=== PATIENT | female | born 1960 | race African-American/Black ===

== ENCOUNTER 2020-03-04 09:24 | Outpatient (REF) | payer OTHER, SELFPAY | END 2020-03-04 09:25 | disposition home or self-care (01) | LOC: HO.US 09:24 | PROVIDERS: PCP Internal Medicine; Visit Provider Internal Medicine | DX: Z76.89 Persons encountering health services in other specified circumstances (principal) ==

== ENCOUNTER → 2020-04-26 11:05 | Outpatient (BNVA) | payer OTHER, SELFPAY | PROVIDERS: PCP Internal Medicine; Referring Provider Internal Medicine; Visit Provider Internal Medicine | DX: Z76.89 Persons encountering health services in other specified circumstances (principal) ==

== ENCOUNTER 2020-05-25 09:09 | Outpatient (REF) | payer OTHER, SELFPAY ==
[2020-05-25 11:52] LABS: Alanine Aminotransferase 12 U/L (0-31); Anion Gap 10 (12-20); Aspartate Amino Transferase 12 U/L (5-31); Blood Urea Nitrogen 12 mg/dL (9-16); Calcium 10.1 mg/dL (8.4-10.2); Carbon Dioxide 27 mmol/L (22-29); Chloride 106 mmol/L (96-108); Cholesterol 123 mg/dL; Estimated Glomerular Filt Rate > 60; Glucose Fasting 112 mg/dL (60-99); HDL Cholesterol 48 mg/dL; LDL Cholesterol Calculated 62 mg/dl; Potassium 4.2 mmol/l (3.3-5.1); Sodium 139 mmol/L (135-145); Triglycerides 66 mg/dL
== END 2020-05-25 09:10 | disposition home or self-care (01) ==
LOC: HO.HMGCLDS 09:09
PROVIDERS: PCP Internal Medicine; Visit Provider Internal Medicine
DX: I10 Essential (primary) hypertension (principal); E11.9 Type 2 diabetes mellitus without complications
CPT/HCPCS: 80048; 80061; 84450; 84460

== ENCOUNTER → 2020-05-26 09:51 | Outpatient (BNVA) | payer OTHER, SELFPAY | PROVIDERS: PCP Internal Medicine; Visit Provider Internal Medicine | DX: I21.4 Non-ST elevation (NSTEMI) myocardial infarction (principal); I25.3 Aneurysm of heart | CPT/HCPCS: 93005; 99212 ==

== ENCOUNTER → 2020-06-03 09:16 | Outpatient (BNVA) | payer OTHER, SELFPAY | PROVIDERS: PCP Internal Medicine; Visit Provider Internal Medicine | DX: Z76.89 Persons encountering health services in other specified circumstances (principal) ==

== ENCOUNTER 2020-06-10 10:53 | Outpatient (REF) | payer OTHER, SELFPAY ==
--- NOTE | 2020-06-10 10:58 | MM_ITS ---
EXAMINATION: BONE DENSITOMETRY CLINICAL INDICATION: Disorders of bone density, hyperparathyroidism. COMPARISON: Baseline BD dated 09/19/2018 (spine and left hip). This is the patient's baseline examination for the forearm radius 33%. TECHNIQUE: Using a [employer] DXA System (software version: 13.1) manufactured by [employer], dual-energy x-ray absorptiometry was performed of the lumbar spine, left hip, and left forearm radius 33%. The images are of good technical quality. Summary results are attached. FINDINGS: AP SPINE L1-L4: Current: BMD 1.182 g/cm2, Z-score -0.6, T-score 0.0, normal, 1.9% increase from baseline (<5% change is not significant). Baseline: BMD 1.160 g/cm2. LEFT FEMUR, NECK: Current: BMD 0.889 g/cm2, Z-score -1.5, T-score -1.1, osteopenia. Baseline: BMD 0.870 g/cm2. LEFT FEMUR, TOTAL: Current: BMD 1.056 g/cm2, Z-score -0.4, T-score 0.4, normal, 4.6% increase from baseline (<5% change is not significant). Baseline: BMD 1.010 g/cm2. LEFT FOREARM RADIUS 33%: BMD 0.851 g/cm2, Z-score 0.0, T-score -0.3, normal. IDENTIFIED RISK FACTORS: Hyperparathyroidism, secondary osteoporosis, early menopause, right oophorectomy. HISTORY OF FRACTURE: None listed. MEDICATIONS: Vitamin D. MM/XR DEXA appendicular skeleton IMPRESSION: 1. DIAGNOSIS: Osteopenia based on the lowest T-score value of -1.1 in the femoral neck applying World Health Organization criteria. 2. 10-YEAR FRACTURE RISK PREDICTION, FRAX: Major osteoporotic fracture (clinical spine, forearm, hip or shoulder) 2.9%. Hip fracture 0.2%. 3. Treatment Recommendations: NOF guidelines recommend consideration for treatment in postmenopausal women and men age 50 and older presenting with the following: -A hip or vertebral (clinical or morphometric) fracture. -T-score less than or equal to -2.5 at the femoral neck or spine after appropriate evaluation to exclude secondary causes. -Low bone mass at the hip or spine and a 10-year fracture probability by FRAX of greater than or equal to 3% for hip fracture or greater than or equal to 20% for major osteoporotic fracture based on the [place] adapted WHO algorithm. 4. Other Recommendations: All treatment decisions require clinical judgment and consideration of individual patient factors, including patient preferences, comorbidities, previous drug use, risk factors not captured in the FRAX model (e.g. frailty, falls, vitamin D deficiency, increased bone turnover, interval significant decline in bone density) and possible under or overestimation of fracture risk by FRAX. Additional medical evaluation for secondary cause of low bone mineral density may be appropriate. FUTURE SCAN RECOMMENDATION: People with diagnosed cases of osteoporosis or at high risk for fracture should have regular bone mineral density tests. For patients eligible for Medicare, routine testing is allowed once every 2 years. The testing frequency can be increased to one year for patients who have rapidly progressing disease, those who are receiving or discontinuing medical therapy to restore bone mass, or have additional risk factors.
== END 2020-06-10 10:54 | disposition home or self-care (01) ==
LOC: HO.MAMMO 10:53
PROVIDERS: Visit Provider Internal Medicine
DX: Z13.820 Encounter for screening for osteoporosis (principal); M85.88 Other specified disorders of bone density and structure, other site
CPT/HCPCS: 77081

== ENCOUNTER → 2020-07-07 08:53 | Outpatient (BNVA) | payer OTHER, SELFPAY | PROVIDERS: PCP Internal Medicine; Visit Provider Internal Medicine ==

== ENCOUNTER 2020-07-08 13:10 | Outpatient (REF) | payer OTHER, SELFPAY ==
[2020-07-08 14:33] LABS: Albumin Level 4.1 g/dL (3.5-5.0); Phosphorus 3.3 mg/dL (2.7-4.5)
[2020-07-08 14:59] LABS: Free T4 (Free Thyroxine) 1.04 ng/dL (0.71-1.85); Thyroid Stimulating Hormone 3.11 uIU/mL (0.32-4.0)
[2020-07-09 13:13] LABS: Calcium (PTHI) 10.4 mg/dL (8.6-10.4); PTHI 77 pg/mL (14-64)
== END 2020-07-08 13:11 | disposition home or self-care (01) ==
LOC: HO.LAB 13:10
PROVIDERS: PCP Internal Medicine; Visit Provider Internal Medicine
DX: E21.3 Hyperparathyroidism, unspecified (principal); E06.3 Autoimmune thyroiditis; E04.2 Nontoxic multinodular goiter; E55.9 Vitamin D deficiency, unspecified
CPT/HCPCS: 36415; 82040; 82306; 82310; 83970; 84100; 84439; 84443

== ENCOUNTER → 2020-08-04 10:06 | Outpatient (BNVA) | payer OTHER, SELFPAY | PROVIDERS: PCP Internal Medicine; Visit Provider Internal Medicine ==

== ENCOUNTER 2020-08-12 06:17 | Day surgery (SDC) | payer OTHER, SELFPAY ==
[2020-08-06 15:52] VITALS: BMI 37.5
--- NOTE | 2020-08-11 09:09 | HO.ANESPROP2 ---
Documented by User: Kristy Brandt 08/11/20 09:17 HPI - Anesthesia Eval Consult details Narrative: 60yo F for Colonoscopy PMFSH Active Problems Active Problems: All Active Problems (Updated 08/06/20 @ 15:52 by Allyson Hernadez) Somatic dysfunction of right sacroiliac joint (Acute) Colon cancer screening (Acute) NSTEMI (non-ST elevated myocardial infarction) (Acute) History of acute myocardial infarction (Acute) Diabetic retinopathy screening (Acute) Essential hypertension (Acute) Osteopenia of left femoral neck (Acute) Type 2 diabetes mellitus without complication, with no history of insulin use (Acute) Atrial septal aneurysm (Acute) Osteopenia (Acute) Vitamin D deficiency (Acute) Multinodular thyroid (Acute) Jaki's disease (Acute) Hyperparathyroidism (Acute) Past Medical History Medical History Atrial septal aneurysm Diabetic retinopathy screening Elevated cholesterol Essential hypertension Jaki's disease History of acute myocardial infarction HTN (hypertension) Hyperparathyroidism Multinodular thyroid NSTEMI (non-ST elevated myocardial infarction) Osteopenia Osteopenia of left femoral neck Type 2 diabetes mellitus without complication, with no history of insulin use Vitamin D deficiency Family History Family History Mother Diabetes Arthritis Breast cancer Father No problems noted. Surgical History Surgical History History of cardiac catheterization (~05/2020) History of partial hysterectomy Hx of colonoscopy Hx of tubal ligation Social History Social History Alcohol intake: current Alcohol intake frequency: holidays/special occasions only Alcohol type: wine Smoking Status: Former smoker Use of substances other than those prescribed or required for medical reasons: No Have you been hit, kicked, punched, or otherwise hurt by someone within the past year? If so, by whom?: No Advance Directives: No Advance Directives Information Provided: No Advance Directives on File: No Meds Allergies Allergy/AdvReac Type Severity Reaction Status Date / Time Lactose Allergy Intermediate stomach Uncoded 08/12/20 06:44 upset Home Medications Medication Instructions Recorded Confirmed Last Taken Type aspirin 81 mg tablet,delayed 81 mg PO DAILY 03/22/20 08/06/20 Unknown History release atorvastatin 20 mg tablet 20 mg PO DAILY 03/22/20 08/06/20 Unknown History cholecalciferol (vitamin D3) 50 50 mcg PO BEDTIME 03/22/20 08/06/20 Unknown History mcg (2,000 unit) capsule metoprolol succinate 100 mg 100 mg PO DAILY 03/22/20 08/12/20 08/12/20 History tablet,extended release 24 hr 100 mg metformin 500 mg tablet 500 mg PO DAILY tab 05/26/20 08/06/20 Unknown History blood sugar diagnostic #10 ea 06/03/20 08/04/20 Unknown History lancets 28 gauge #100 ea 06/03/20 08/04/20 Unknown History Exam Exam Date and Time: August 11, 2020 0909 Height,Weight and Vital Signs: Height 5 ft 4 in Weight 99.337 kg Pertinent Lab Results Pertinent Lab Results: Laboratory Tests 05/25/20 09:16 Sodium 139 Potassium 4.2 Chloride 106 Carbon Dioxide 27 BUN 12 Creatinine 0.88 Narrative Narrative: Per cardiology OV 05/2020 post [facility] D/C with NSTEMI Recent cardiac catheterization showed normal coronary arteries. She could have had microvascular disease related to diabetes. Echocardiogram then with hyperdynamic systolic function, but without any wall motion abnormalities. Assessment and Plan Assessment Anesthesia Assessment: Chart Reviewed Documented by User: Jenaro Fisher 08/12/20 07:36 [facility] Past Medical History Medical History Atrial septal aneurysm Diabetic retinopathy screening Elevated cholesterol Essential hypertension Jaki's disease History of acute myocardial infarction HTN (hypertension) Hyperparathyroidism Multinodular thyroid NSTEMI (non-ST elevated myocardial infarction) Osteopenia Osteopenia of left femoral neck Type 2 diabetes mellitus without complication, with no history of insulin use Vitamin D deficiency Family History Family History Mother Diabetes Arthritis Breast cancer Father No problems noted. Surgical History Surgical History History of cardiac catheterization (~05/2020) History of partial hysterectomy Hx of colonoscopy Hx of tubal ligation Social History Social History Alcohol intake: current Alcohol intake frequency: holidays/special occasions only Alcohol type: wine Smoking Status: Former smoker Use of substances other than those prescribed or required for medical reasons: No Have you been hit, kicked, punched, or otherwise hurt by someone within the past year? If so, by whom?: No Advance Directives: No Advance Directives Information Provided: No Advance Directives on File: No Meds Allergies Allergy/AdvReac Type Severity Reaction Status Date / Time Lactose Allergy Intermediate stomach Uncoded 08/12/20 06:44 upset Home Medications Medication Instructions Recorded Confirmed Last Taken Type aspirin 81 mg tablet,delayed 81 mg PO DAILY 03/22/20 08/06/20 Unknown History release atorvastatin 20 mg tablet 20 mg PO DAILY 03/22/20 08/06/20 Unknown History cholecalciferol (vitamin D3) 50 50 mcg PO BEDTIME 03/22/20 08/06/20 Unknown History mcg (2,000 unit) capsule metoprolol succinate 100 mg 100 mg PO DAILY 03/22/20 08/12/20 08/12/20 History tablet,extended release 24 hr 100 mg metformin 500 mg tablet 500 mg PO DAILY tab 05/26/20 08/06/20 Unknown History blood sugar diagnostic #10 ea 06/03/20 08/04/20 Unknown History lancets 28 gauge #100 ea 06/03/20 08/04/20 Unknown History Exam Airway Mallampati Class: II TM Dist: >3cm Neck ROM: Full Heart: [id number] Lungs: cta b/l Assessment and Plan Assessment Anesthesia Assessment: Anesthesia Plan Discussed, PAT Visit and Chart Reviewed Final Anesthetic Review NPO: Yes ASA Class: III Final Preanesthetic Review: No Changes in Pt Med Stat, Meds/Allgs Chart Reviewed, Consent Obtained/Reviewed and Anes Risks/Benef Reviewed Patient Risk: Intermediate Procedure Risk: Low Assessment/Block/Sedation in SS: Assess/Block/Sedation-SS Anesthetic Plan Anesthetic Plan: MAC: and Agree w/ Assess. and Plan Disposition: Standard PACU
[2020-08-12 06:34] VITALS: BP 107/70; PULSE 73; RESP 18; TEMP 36; O2SAT 95
[2020-08-12 06:35] LABS: Glucose, Whole Blood 102 mg/dL (60-115)
[2020-08-12] MEDS: Lactated Ringers 1,000 ML 50 ML IV (07:16)
--- NOTE | 2020-08-12 07:25 | P.HPSUR_ITS ---
Pre-Procedural Eval Section B Chief Complaint: screening Details of Present Illness: Colon cancer screening--non high risk no clinical changes sine June preprocedure visit Relevant Family History (Specify if Yes): No Relevant Social History: None Present Medications: see Short Stay Collaborative assessment Medical History: Significant History (Hypertension, Diabetes) History of Previous Operations: Relevant previous surgery/procedure and date(s) (Partial hysterectomy) Allergies: Allergies Allergy/AdvReac Type Severity Reaction Status Date / Time Lactose Allergy Intermediate stomach Uncoded 08/12/20 06:44 upset Review of Systems Sugical H&P ROS: Negative: Constitution, Respiratory and Gastrointestinal and Yes, Specify: Cardiovascular (hypertension) and Endocrine (thyroid,parathyroid, AODM-2) Exam Surgical H&P Exam: Normal: HEENT, Normal: Heart, Normal: Lungs, Normal: Ext remities and Normal: Abdomen Plan Diagnosis/Plan: Unchanged I have reviewed the history and physical and performed a pertinent physical examination on my patient. No changes have occurred unless specified.yes
--- NOTE | 2020-08-12 08:16 | P.BOP_ITS ---
Brief Operative Note Date of Service: 08/12/20 Pre-op diagnosis: COLON CANCER SCREENING Post-op diagnosis: other (MINOR DIVERTICULOSIS) Procedure: COLONOSCOPY Implants: NONE Surgeon: Lulu Childress MD Anesthesia: MAC (DEVAN,LEARNING DEVELOPMENT SPECIALIST;MD ELAINE) Estimated blood loss (mL): 0 Pathology: none sent Condition: stable Disposition: PACU
[2020-08-12 08:17] VITALS: BP 106/50; PULSE 61; RESP 20; TEMP 36.8; O2SAT 100
[2020-08-12 08:32] VITALS: BP 129/59; PULSE 65; RESP 17; TEMP 36.8; O2SAT 100
--- NOTE | 2020-08-12 08:34 | P.OP_ITS ---
Operative Note Operative Note Date of Service: 08/12/20 Narrative: Pre-op diagnosis: COLON CANCER SCREENING Post-op diagnosis: other (MINOR DIVERTICULOSIS) Procedure: COLONOSCOPY Implants: NONE Surgeon: Lulu Childress MD Anesthesia: MAC (DEVAN,ROLL UP MACHINE OPERATOR;MD ELAINE) BRYAN-adequate sphincter tone FINDINGS: SCOPE EASILY ADVANCED THROUGH SIGMOID, DESCENDING, TRANSVERSE COLON INTO THE CECUM. APPENDICEAL ORIFICE, VALVE WELL SEEN. I WAS ABLE TO EXAMINE VERY DISTAL ILEUM FOR ? 2CM--NORMAL VILLI PREP--GOOD, THERE WAS MILD RESIDUAL FLUID NECESSITATING SOME FLUSHING AND SUCTIONING WE COURSED THRU THE COLON. SLOW WITHDRAWAL, GOOD ROTATIONAL VIEWS, NO MUCOSAL LESIONS SEEN. ON WAY IN OCC DIVERTICULUM HAD BEEN SEEN. ARV--CLEAR. Estimated blood loss (mL): 0 Pathology: none sent Condition: stable Disposition: PACU PLAN: PATIENT WILL REMAIN ON A 10YR ASYMPTOMATIC SCREENING SCHEDULE.
== END 2020-08-12 09:08 | disposition home or self-care (01) ==
PROVIDERS: PCP Internal Medicine; Visit Provider Internal Medicine Gastroenterology
PROC: 0DJD8ZZ Inspection of Lower Intestinal Tract, Via Natural or Artificial Opening Endoscopic (ICD-10-PCS; CPT 45378; principal; 2020-08-12 07:30)
DX: Z12.11 Encounter for screening for malignant neoplasm of colon (principal); K57.30 Diverticulosis of large intestine without perforation or abscess without bleeding; I10 Essential (primary) hypertension; E11.9 Type 2 diabetes mellitus without complications; Z79.82 Long term (current) use of aspirin; Z79.84 Long term (current) use of oral hypoglycemic drugs; Z79.899 Other long term (current) drug therapy; Z87.891 Personal history of nicotine dependence
CPT/HCPCS: 45378; 82947

== ENCOUNTER 2020-08-31 07:49 | Outpatient (REF) | payer OTHER, SELFPAY ==
[2020-08-31 09:09] LABS: Alanine Aminotransferase 21 U/L (0-31); Albumin Level 4.2 g/dL (3.5-5.0); Alkaline Phosphatase 88 U/L (39-117); Anion Gap 12 (12-20); Aspartate Amino Transferase 16 U/L (5-31); Bilirubin Total 0.7 mg/dL (0.0-1.0); Blood Urea Nitrogen 15 mg/dL (9-16); Calcium 10.2 mg/dL (8.4-10.2); Carbon Dioxide 27 mmol/L (22-29); Chloride 105 mmol/L (96-108); Cholesterol 143 mg/dL; Estimated Glomerular Filt Rate 56; Glucose Random 131 mg/dL (60-115); HDL Cholesterol 57 mg/dL; LDL Cholesterol Calculated 73 mg/dl; Phosphorus 3.5 mg/dL (2.7-4.5); Potassium 4.3 mmol/L (3.3-5.1); Sodium 140 mmol/L (135-145); Total Protein 6.9 g/dL (6.5-8.0); Triglycerides 66 mg/dL
[2020-08-31 09:28] LABS: Free T4 (Free Thyroxine) 0.83 ng/dL (0.71-1.85)
[2020-08-31 09:34] LABS: Thyroid Stimulating Hormone 4.86 uIU/mL (0.32-4.0)
[2020-08-31 09:59] LABS: Vitamin D 25-OH Total 40.5 ng/mL (>30)
[2020-09-01 17:52] LABS: Calcium (PTHI) 10.5 mg/dL (8.6-10.4); PTHI 69 pg/mL (14-64)
== END 2020-08-31 07:50 | disposition home or self-care (01) ==
LOC: HO.LAB 07:49
PROVIDERS: Absent Provider Internal Medicine; PCP Internal Medicine; Visit Provider Internal Medicine
DX: Z09 Encounter for follow-up examination after completed treatment for conditions other than malignant neoplasm (principal); E21.3 Hyperparathyroidism, unspecified; E04.2 Nontoxic multinodular goiter; I10 Essential (primary) hypertension; E11.9 Type 2 diabetes mellitus without complications; I25.3 Aneurysm of heart; E55.9 Vitamin D deficiency, unspecified; I25.2 Old myocardial infarction
CPT/HCPCS: 36415; 80053; 80061; 82306; 83970; 84100; 84439; 84443

== ENCOUNTER 2020-11-26 11:22 | Outpatient (REF) | payer OTHER, SELFPAY ==
--- NOTE | ~2020-11-26 | MM_ITS ---
EXAMINATION: MM SCREENING DIGITAL BREAST TOMOSYNTHESIS, BILATERAL CLINICAL INFORMATION: Screening. Asymptomatic. The lifetime risk of breast cancer based on the Tyrer-Cuzick Model is 11.1%. COMPARISON: Mammography: November 25, 2019 and studies dating back to August 02, 2016 TECHNIQUE: Digital breast tomosynthesis is performed in both the craniocaudal and mediolateral oblique views along with computer-aided detection (CAD). Synthesized 2D images are generated from the tomosynthesis. FINDINGS: There are scattered areas of fibroglandular density (ACR BI-RADS breast composition Category b). There are no significant masses, abnormal calcifications, or other abnormalities. MM/MM tomosynthesis screening BI IMPRESSION: There are no significant changes from prior study. ASSESSMENT: BI-RADS 1: Negative RECOMMENDATION: Routine annual mammography screening. This patient's information was entered into a reminder system with a target due date for their next mammogram.
== END 2020-11-26 11:23 | disposition home or self-care (01) ==
LOC: HO.MAMMO 11:22
PROVIDERS: Visit Provider Internal Medicine
DX: Z12.31 Encounter for screening mammogram for malignant neoplasm of breast (principal)
CPT/HCPCS: 77063; 77067

== ENCOUNTER → 2021-02-03 09:53 | Outpatient (BNVA) | payer OTHER, SELFPAY | PROVIDERS: PCP Internal Medicine; Visit Provider Internal Medicine ==

== ENCOUNTER 2021-02-08 10:15 | Outpatient (REF) | payer OTHER, SELFPAY ==
[2021-02-08 11:17] LABS: Albumin Level 4.1 g/dL (3.5-5.0)
[2021-02-08 11:49] LABS: Free T4 (Free Thyroxine) 1.03 ng/dL (0.71-1.85); Thyroid Stimulating Hormone 3.61 uIU/mL (0.32-4.0)
[2021-02-13 06:31] LABS: Calcium (PTHI) 10.7 mg/dL (8.6-10.4); PTHI 65 pg/mL (14-64)
== END 2021-02-08 10:16 | disposition home or self-care (01) ==
LOC: HO.LAB 10:15
PROVIDERS: PCP Internal Medicine; Visit Provider Internal Medicine
DX: E21.3 Hyperparathyroidism, unspecified (principal); E06.3 Autoimmune thyroiditis
CPT/HCPCS: 36415; 82040; 83970; 84439; 84443

== ENCOUNTER 2021-04-11 08:47 | Outpatient (REF) | payer OTHER, SELFPAY ==
[2021-04-12 12:03] LABS: BV Int Neg Control Negative (Negative); BV Int Pos Control Positive (Positive)
== END 2021-04-11 08:48 | disposition home or self-care (01) ==
LOC: HO.LAB 08:47
PROVIDERS: PCP Internal Medicine; Visit Provider Advanced Practice Midwife
DX: Z01.411 Encounter for gynecological examination (general) (routine) with abnormal findings (principal); N89.8 Other specified noninflammatory disorders of vagina
CPT/HCPCS: 87480; 87510; 87660

== ENCOUNTER → 2021-05-10 10:10 | Outpatient (BNVA) | payer OTHER, SELFPAY | PROVIDERS: PCP Internal Medicine; Referring Provider Internal Medicine; Visit Provider Internal Medicine | DX: I25.2 Old myocardial infarction (principal); I25.3 Aneurysm of heart; I10 Essential (primary) hypertension; E11.8 Type 2 diabetes mellitus with unspecified complications; Z79.82 Long term (current) use of aspirin | CPT/HCPCS: 93005; 99212 ==

== ENCOUNTER 2021-06-16 18:28 | Outpatient (REF) | payer OTHER, SELFPAY | END 2021-06-16 18:29 | disposition home or self-care (01) | LOC: HO.LNP 18:28 | PROVIDERS: Visit Provider Physician Assistant Medical | DX: L02.91 Cutaneous abscess, unspecified (principal) | CPT/HCPCS: 87071; 87205 ==

== ENCOUNTER 2021-06-24 08:00 | Outpatient (RCR) | payer OTHER, SELFPAY | END 2021-08-29 09:27 | disposition home or self-care (01) | LOC: HO.WCC 08:00 | PROVIDERS: PCP Internal Medicine; Visit Provider Physician Assistant | DX: E11.622 Type 2 diabetes mellitus with other skin ulcer (principal); L98.492 Non-pressure chronic ulcer of skin of other sites with fat layer exposed; Z79.84 Long term (current) use of oral hypoglycemic drugs; Z79.2 Long term (current) use of antibiotics; Z79.82 Long term (current) use of aspirin; Z79.899 Other long term (current) drug therapy | CPT/HCPCS: 10060; 17250; 97602; 99212 ==

== ENCOUNTER 2021-08-02 07:08 | Outpatient (REF) | payer OTHER, SELFPAY ==
[2021-08-02 08:18] LABS: Estimated Average Glucose 146 mg/dL; Hemoglobin A1c % 6.7 %
[2021-08-02 08:28] LABS: Alanine Aminotransferase 10 U/L (0-31); Albumin Level 4.1 g/dL (3.5-5.0); Alkaline Phosphatase 88 U/L (39-117); Anion Gap 13 (12-20); Aspartate Amino Transferase 12 U/L (5-31); Bilirubin Total 0.7 mg/dL (0.0-1.0); Blood Urea Nitrogen 12 mg/dL (9-16); Calcium 10.5 mg/dL (8.4-10.2); Carbon Dioxide 27 mmol/L (22-29); Chloride 105 mmol/L (96-108); Cholesterol 152 mg/dL; Estimated Glomerular Filt Rate > 60; Glucose Random 119 mg/dL (60-115); HDL Cholesterol 61 mg/dL; LDL Cholesterol Calculated 79 mg/dl; Phosphorus 3.2 mg/dL (2.7-4.5); Potassium 3.8 mmol/L (3.3-5.1); Sodium 141 mmol/L (135-145); Total Protein 6.8 g/dL (6.5-8.0); Triglycerides 63 mg/dL
[2021-08-02 08:46] LABS: Free T4 (Free Thyroxine) 1.01 ng/dL (0.71-1.85); Vitamin D 25-OH Total 39.8 ng/mL (>30)
[2021-08-02 08:47] LABS: Thyroid Stimulating Hormone 5.07 uIU/mL (0.32-4.0)
[2021-08-02 10:01] LABS: Creatinine Urine 171.82 mg/dL; Microalbum/Creatinine Ratio Ur 4.6 ug/mg cr
[2021-08-04 15:06] LABS: Calcium (PTHI) 10.6 mg/dL (8.6-10.4); PTHI 42 pg/mL (14-64)
== END 2021-08-02 07:09 | disposition home or self-care (01) ==
LOC: HO.LAB 07:08
PROVIDERS: Absent Provider Internal Medicine; PCP Internal Medicine; Visit Provider Internal Medicine
DX: Z00.01 Encounter for general adult medical examination with abnormal findings (principal); M85.852 Other specified disorders of bone density and structure, left thigh; I25.2 Old myocardial infarction; I10 Essential (primary) hypertension; E21.3 Hyperparathyroidism, unspecified; E11.8 Type 2 diabetes mellitus with unspecified complications; E06.3 Autoimmune thyroiditis; E04.2 Nontoxic multinodular goiter; E55.9 Vitamin D deficiency, unspecified
CPT/HCPCS: 36415; 80053; 80061; 82043; 82306; 83036; 83970; 84100; 84439; 84443

== ENCOUNTER → 2021-08-04 10:55 | Outpatient (BNVA) | payer OTHER, SELFPAY | PROVIDERS: PCP Internal Medicine; Visit Provider Internal Medicine ==

== ENCOUNTER 2022-01-07 10:36 | Outpatient (REF) | payer OTHER, SELFPAY ==
[2022-01-07 11:37] LABS: Alanine Aminotransferase 12 U/L (0-31); Albumin Level 4.2 g/dL (3.5-5.0); Alkaline Phosphatase 89 U/L (39-117); Anion Gap 13 (12-20); Aspartate Amino Transferase 12 U/L (5-31); Bilirubin Total 0.9 mg/dL (0.0-1.0); Blood Urea Nitrogen 11 mg/dL (9-16); Calcium 10.5 mg/dL (8.4-10.2); Carbon Dioxide 27 mmol/L (22-29); Chloride 106 mmol/L (96-108); Estimated Glomerular Filt Rate 53; Glucose Random 114 mg/dL (60-115); Phosphorus 3.3 mg/dL (2.7-4.5); Potassium 4.5 mmol/L (3.3-5.1); Sodium 141 mmol/L (135-145); Total Protein 6.9 g/dL (6.5-8.0)
[2022-01-07 11:57] LABS: Free T4 (Free Thyroxine) 1.15 ng/dL (0.71-1.85); Thyroid Stimulating Hormone 2.41 uIU/mL (0.32-4.0); Vitamin D 25-OH Total 44.5 ng/mL (>30)
[2022-01-09 17:32] LABS: Calcium (PTHI) 10.5 mg/dL (8.6-10.4); PTHI 85 pg/mL (16-77)
== END 2022-01-07 10:37 | disposition home or self-care (01) ==
LOC: HO.LAB 10:36
PROVIDERS: Visit Provider Internal Medicine
DX: E21.3 Hyperparathyroidism, unspecified (principal); E04.2 Nontoxic multinodular goiter; E06.3 Autoimmune thyroiditis; E55.9 Vitamin D deficiency, unspecified
CPT/HCPCS: 36415; 80053; 82306; 83970; 84100; 84439; 84443

== ENCOUNTER → 2022-02-13 10:14 | Outpatient (BNVA) | payer OTHER, SELFPAY | PROVIDERS: PCP Internal Medicine; Visit Provider Internal Medicine | DX: E21.3 Hyperparathyroidism, unspecified (principal); M85.80 Other specified disorders of bone density and structure, unspecified site; E55.9 Vitamin D deficiency, unspecified; E04.2 Nontoxic multinodular goiter; E06.3 Autoimmune thyroiditis; Z79.899 Other long term (current) drug therapy | CPT/HCPCS: 99212; Q3014 ==

== ENCOUNTER 2022-02-20 08:44 | Outpatient (REF) | payer OTHER, SELFPAY ==
--- NOTE | ~2022-02-20 | XR_ITS ---
EXAMINATION: XR CHEST CLINICAL INFORMATION: Acute bronchitis. COMPARISON: None TECHNIQUE: 2 views of the chest were obtained. XR/XR chest 2V FINDINGS/IMPRESSION: Findings suggest a subtle left lower lobe focal interstitial and alveolar infiltrate, raising suspicion for pneumonia. No gross infiltrate is seen on the right. No effusion or pneumothorax is appreciated. The heart appears normal in size. There are mild degenerative changes of the spine.
== END 2022-02-20 08:45 | disposition home or self-care (01) ==
LOC: HO.HMGCX 08:44
PROVIDERS: PCP Internal Medicine; Visit Provider Internal Medicine
DX: J20.9 Acute bronchitis, unspecified (principal); E11.8 Type 2 diabetes mellitus with unspecified complications
CPT/HCPCS: 71046

== ENCOUNTER 2022-05-18 09:24 | Outpatient (REF) | payer OTHER, SELFPAY ==
--- NOTE | ~2022-05-18 | MM_ITS ---
EXAMINATION: MM SCREENING DIGITAL BREAST TOMOSYNTHESIS, BILATERAL CLINICAL INFORMATION: Screening. Asymptomatic. The lifetime risk of breast cancer based on the Tyrer-Cuzick Model is 11.3%. COMPARISON: Mammography: November 26, 2020 and studies dating back to August 02, 2016 TECHNIQUE: Digital breast tomosynthesis is performed in both the craniocaudal and mediolateral oblique views along with computer-aided detection (CAD). Synthesized 2D images are generated from the tomosynthesis. FINDINGS: There are scattered areas of fibroglandular density (ACR BI-RADS breast composition Category b). There are no significant masses, abnormal calcifications, or other abnormalities. MM/MM tomosynthesis screening BI IMPRESSION: No significant changes from prior exam. ASSESSMENT: BI-RADS 1: Negative RECOMMENDATION: Routine annual mammography screening. This patient's information was entered into a reminder system with a target due date for their next mammogram.
== END 2022-05-18 09:25 | disposition home or self-care (01) ==
LOC: HO.MAMMO 09:24
PROVIDERS: PCP Internal Medicine; Visit Provider Advanced Practice Midwife
DX: Z12.31 Encounter for screening mammogram for malignant neoplasm of breast (principal)
CPT/HCPCS: 77063; 77067

== ENCOUNTER → 2022-05-23 10:15 | Outpatient (BNVA) | payer OTHER, SELFPAY | PROVIDERS: PCP Internal Medicine; Referring Provider Internal Medicine; Visit Provider Internal Medicine | DX: I21.4 Non-ST elevation (NSTEMI) myocardial infarction (principal); I25.3 Aneurysm of heart; I10 Essential (primary) hypertension; E11.8 Type 2 diabetes mellitus with unspecified complications | CPT/HCPCS: 93005; 99212 ==

== ENCOUNTER 2022-08-02 09:42 | Outpatient (REF) | payer OTHER, SELFPAY ==
[2022-08-02 11:45] LABS: Alanine Aminotransferase 10 U/L (0-31); Albumin Level 4.3 g/dL (3.5-5.0); Alkaline Phosphatase 94 U/L (39-117); Anion Gap 13 (12-20); Aspartate Amino Transferase 13 U/L (5-31); Bilirubin Total 1.1 mg/dL (0.0-1.0); Blood Urea Nitrogen 11 mg/dL (9-16); Calcium 10.6 mg/dL (8.4-10.2); Carbon Dioxide 26 mmol/L (22-29); Chloride 104 mmol/L (96-108); Cholesterol 176 mg/dL; Estimated Glomerular Filt Rate 50; Glucose Random 124 mg/dL (60-115); HDL Cholesterol 67 mg/dL; LDL Cholesterol Calculated 96 mg/dl; Phosphorus 3.8 mg/dL (2.7-4.5); Potassium 4.4 mmol/L (3.3-5.1); Sodium 139 mmol/L (135-145); Total Protein 7.4 g/dL (6.5-8.0); Triglycerides 68 mg/dL
[2022-08-02 11:50] LABS: Estimated Average Glucose 146 mg/dL; Hemoglobin A1c % 6.7 %
[2022-08-02 11:57] LABS: Free T4 (Free Thyroxine) 1.02 ng/dL (0.71-1.85); Vitamin D 25-OH Total 49.8 ng/mL (>30)
[2022-08-03 13:24] LABS: Calcium (PTHI) 11.1 mg/dL (8.6-10.4); PTHI 76 pg/mL (16-77)
== END 2022-08-02 09:43 | disposition home or self-care (01) ==
LOC: HO.HMGCLDS 09:42
PROVIDERS: Internal Medicine; Visit Provider Internal Medicine
DX: E11.8 Type 2 diabetes mellitus with unspecified complications (principal); E04.2 Nontoxic multinodular goiter; E55.9 Vitamin D deficiency, unspecified; I25.2 Old myocardial infarction; I10 Essential (primary) hypertension; E21.3 Hyperparathyroidism, unspecified
CPT/HCPCS: 36415; 80053; 80061; 82306; 83036; 83970; 84100; 84439; 84443

== ENCOUNTER 2022-10-31 13:27 | Outpatient (REF) | payer OTHER, SELFPAY ==
[2022-10-31 16:41] LABS: Alanine Aminotransferase 9 U/L (0-31); Alkaline Phosphatase 80 U/L (39-117); Aspartate Amino Transferase 11 U/L (5-31); Bilirubin Direct 0.2 mg/dL (0.0-0.5); Bilirubin Total 0.6 mg/dL (0.0-1.0); Calcium 8.1 mg/dL (8.4-10.2); Total Protein 6.9 g/dL (6.5-8.0)
[2022-10-31 18:34] LABS: Creatinine Urine 301.26 mg/dL; Microalbum/Creatinine Ratio Ur 7.9 ug/mg cr
== END 2022-10-31 13:28 | disposition home or self-care (01) ==
LOC: HO.HMGCLDS 13:27
PROVIDERS: PCP Internal Medicine; Visit Provider Surgery
DX: E11.8 Type 2 diabetes mellitus with unspecified complications (principal); I10 Essential (primary) hypertension; I25.2 Old myocardial infarction; E21.3 Hyperparathyroidism, unspecified; E89.0 Postprocedural hypothyroidism
CPT/HCPCS: 36415; 80076; 82043; 82310

== ENCOUNTER 2022-11-03 10:57 | Outpatient (AMB) | payer OTHER, SELFPAY ==
--- NOTE | 2022-11-03 11:23 | A.OFFPC_ITS ---
Vital Signs 11/03/22 11:35 Height 5 ft 4 in Weight 232 lb BMI 39.8 BP 100/70 Blood Pressure Location Lt brachial Position Sitting Pulse 71 Pulse Source Pulse Oximeter Pulse Oximetry (%) 98 Oxygen Delivery Method Room Air Intake Visit Reasons: Annual PE Intake Note: Pt is here today for her PE Allergies Lactose Allergy (Intermediate, Uncoded 01/29/24 08:47) stomach upset Medication List - Last Reconciled 11/03/22 by Di Bae MD amlodipine 10 mg PO DAILY atorvastatin 20 mg PO DAILY blood sugar diagnostic (FreeStyle Lite Strips) test blood sugar once a day calcium carbonate (Calcium 500) 500 mg PO DAILY cetirizine 10 mg PO BEDTIME PRN cholecalciferol (vitamin D3) 50 mcg PO BEDTIME lancets (FreeStyle Lancets) Test blood sugar once a day levothyroxine 100 mcg PO DAILY 30 days metformin 500 mg PO BEDTIME metoprolol succinate ER 100 mg PO DAILY Tobacco use date assessed: 11/03/22 HPI Annual PE HPI Details 63 Year old lady with hypertension, dysl ipidemia, diabetes mellitus hx of NSTEMI in 2019, here today for a physical exam . Her blood pressure has been stable and controlled on current treatment with metoprolol succinate ER, amlodipine 10 mg daily and has fasting labs done 08/2022 showed hemoglobin A1c and lipids within normal limits. Up-to-date with her diabetes retinopathy screening, goes to [facility]. She is due for a screening mammogram later this year already has an appointment, up-to-date with her screening colonoscopy done in 2020, with normal findings. Due again for recheck in 2030. She underwent parathyroidectomy due to primary hyperparathyroidism last 10/21/[address] Leigh,A bone density done in 2020 showed presence of osteopenia in left hip. She also was diagnosed with papillary thyroid carcinoma status post total thyroidectomy also done 10/21/[address] Leigh [facility] Medical History (Updated 03/22/24 @ 03:25 by Di Bae MD) History of primary hyperparathyroidism Hx of papillary thyroid carcinoma Menopausal vaginal dryness History of hyperparathyroidism Glenohumeral arthritis Acromioclavicular joint arthritis HTN (hypertension) NSTEMI (non-ST elevated myocardial infarction) Diabetic retinopathy screening Essential hypertension Osteopenia of left femoral neck Type 2 diabetes mellitus without complication, with no history of insulin use Atrial septal aneurysm Vitamin D deficiency Multinodular thyroid Jaki's disease Surgical History (Updated 03/22/24 @ 03:25 by Di Bae MD) History of total thyroidectomy History of parathyroidectomy Hx of colonoscopy Hx of colonoscopy History of cardiac catheterization (~05/2020) History of partial hysterectomy Hx of tubal ligation Family History Mother Diabetes Arthritis Breast cancer, Onset Age: 70 Father No problems noted. Social History Household Members: None Housing: House Alcohol intake: current Alcohol intake frequency: holidays/special occasions only Alcohol type: wine Patient Tobacco Use Status: Former Tobacco user e-Cigarette/Vaping Use: Never Used service: No Current occupational status: retired Cognitive needs: No Hearing needs: No Vision needs: Yes Female Reproductive History Menstrual Age of Menarche: 12 Questionnaire PHQ-9 Over the last 2 weeks, how often have you been bothered by any of the following problems? 1. Little interest or pleasure in doing things: not at all 2. Feeling down, depressed, or hopeless: not at all 3. Trouble falling or staying asleep, or sleeping too much: not at all 4. Feeling tired or having little energy: not at all 5. Poor appetite or overeating: not at all 6. Feeling bad about yourself - or that you are a failure or have let yourself or your family down: not at all 7. Trouble concentrating on things, such as reading the newspaper or watching television: not at all 8. Moving or speaking so slowly that other people could have noticed. Or the opposite - being so fidgety or restless that you have been moving around a lot more than usual: not at all 9. Thoughts that you would be better off or of hurting yourself in some way: not at all Total score: 0 Depression Screening Interpretation: Negative 75563 - PHQ-9 Billing: Yes Source: Developed by Drs. Hiren Ragland, Deepa Durán, Anthony Reddy and colleagues, with an educational dania from [email or web address]. Thrive Questionnaire Date Thrive assessed: 11/03/22 I am a: Patient What is your living situation today?: I have a steady place to live Within the past 12 months, did the food you bought not last and you didn't have the money to get more?: Never true Within the past 12 months, did you worry whether your food would run out before you got money to buy more?: Never true Do you have trouble paying for medicines?: No Do you have trouble getting transportation to medical appointments?: No Do you have trouble paying your heating and electricity bill?: No Do you have trouble taking care of your child, family member or friend?: No Do you have trouble with day-to-day activities such as bathing, preparing meals, shopping, managing finances, etc.?: No Are you currently unemployed and looking for a job?: No Are you interested in more education?: No BRENNAN-7 AMB Questionnaire BRENNAN-7 Date BRENNAN - 7 assessed: 11/03/22 Feeling nervous, anxious, or on edge: 0 = Not at all Not being able to stop or control worryin = Not at all Worrying too much about different things: 0 = Not at all Trouble relaxin = Not at all Being so restless that it is hard to sit still: 0 = Not at all Becoming easily annoyed or irritable: 0 = Not at all Feeling afraid as if something awful might happen: 0 = Not at all Total BRENNAN-7 score (0-4 normal; 5-9 mild; 10-14 moderate; 15-21 severe): 0 Source: Developed by Drs. Hiren Ragland, Deepa Durán, Anthony Reddy and colleagues, with an educational dania from [email or web address]. BRENNAN-7 Assessment Billing BRENNAN-7 Assessment Tool: BRENNAN-7 Assessment 34646 Review of Systems Const Denies body aches, Denies fatigue, Denies fever(s), Denies headache(s), Denies malaise, Denies snoring and Denies weakness Eyes Details: Goes to [facility] Reports no additional complaints ENT Denies dizziness, Denies headache(s) and Denies nasal congestion Card Denies chest pain, Denies chest pain with activity, Denies syncope, Denies rapid heart rate, Denies pedal edema, Denies leg edema, Denies lightheadedness, Denies palpitations, Denies dyspnea and Denies dyspnea on exertion Resp Denies cough, Denies dyspnea, Denies dyspnea on exertion and Denies snoring GI Denies abdominal pain, Denies melena, Denies bloating, Denies hematochezia and Denies change in stool character Denies urinary frequency, Denies difficulty voiding, Denies nocturia, Denies dysuria, Denies urinary incontinence and Denies urinary urgency Musc Denies abnormal gait, Denies joint swelling, Denies muscle weakness, Denies numbness and Denies tingling Skin/Breast Denies breast swelling, Denies breast pain, Denies breast mass, Denies lesions and Denies rash Neuro Denies abnormal gait, Denies dizziness, Denies syncope, Denies headache(s), Denies numbness, Denies tingling and Denies weakness Psych Reports no additional complaints Endo Denies fatigue, Denies polyphagia, Denies polydipsia, Denies polyuria and Denies palpitations Urban/Lymph Reports no additional complaints Aller/Immun Reports no additional complaints Physical exam (Primary Care) Vital Signs: Last Vital Signs Pulse 71 11/03/22 11:35 BP 100/70 11/03/22 11:35 Pulse Ox 98 11/03/22 11:35 Oxygen Delivery Method Room Air 11/03/22 11:35 BMI result Body Mass Index 39.8 Tobacco/Smoking Status: Tobacco use Status Tobacco use date assessed 11/03/22 11/03/22 11:26 Patient Tobacco Use Status Former Tobacco user 11/03/22 11:26 e-Cigarette/Vaping Use Never Used 11/03/22 11:26 PHQ-9: PHQ-9 Score PHQ-9: Total score 0 11/03/22 11:55 Depression Screening Interpretation: Negative Thrive Assessment: Date of Thrive Assessment Date Thrive assessed 11/03/22 11/03/22 11:44 Const Other: obese, Alert oriented x3, no acute distress noted, normal gait Orientation/consciousness: patient oriented x3 HENMT Head: Yes normocephalic Ears: external ears normal, TM's normal bilaterally and EAC's normal General nose exam: Normal external nose present Face and sinus: Yes face symmetric Mouth: Normal oral and palatal mucosa present, tongue normal, oropharynx normal and moist mucous membranes Eyes General: appearance normal, both eyes and all related structures Neck Other: healed sx scar anterior neck Neck: Yes full ROM, Yes no lymphadenopathy and Yes supple Chest Chest palpation & inspection: normal inspection of the chest Breast/axilla palpation: normal palpation of the breasts Resp Auscultation: clear to auscultation bilaterally Cardio Other: S1-S2 present regular rate and rhythm GI Palpation (GI): Tenderness to palpation present (GI) Auscultation: normal bowel sounds General: Yes no CVA tenderness Back/Spine/Pelvis Back: no CVA tenderness Skin General skin exam: no rashes or lesions noted Neuro General: patient oriented x3, gait normal, tone normal, moves all extremities, no focal motor deficits, CN's II-XI intact bilaterally and normal sensation to monofilament Extrem General: Yes full ROM, Yes no joint enlargement, Yes no pedal edema and Yes normal gait Psych Appearance: grossly normal and well kempt Mental Status: mental status grossly normal Speech and movement: Normal speech and movement present Affect: normal affect Coding Level of Care Code Est Pt Prev Care 40-64y(96087) Diagnoses Annual visit for general adult medical examination with abnormal findings Z00.01 Essential hypertension I10 Type 2 diabetes mellitus without complication, with no history of insulin use E11.9 Osteopenia of left femoral neck M85.852 Hx of papillary thyroid carcinoma Z85.850 History of primary hyperparathyroidism Z86.39 Additional Codes BRENNAN-7 Assessment Billing - BRENNAN-7 Assessment Tool: BRENNAN-7 Assessment 59703 ([id number])
[2022-11-03 11:35] VITALS: BP 100/70; PULSE 71; O2SAT 98; BMI 39.8
== END 2022-11-03 12:10 | disposition home or self-care (01) ==
LOC: HO.HMGC 10:57
PROVIDERS: PCP Internal Medicine; Visit Provider Internal Medicine
DX: Z00.01 Encounter for general adult medical examination with abnormal findings (principal); I10 Essential (primary) hypertension; E11.9 Type 2 diabetes mellitus without complications; M85.852 Other specified disorders of bone density and structure, left thigh; Z85.850 Personal history of malignant neoplasm of thyroid; Z86.39 Personal history of other endocrine, nutritional and metabolic disease
CPT/HCPCS: 99499

== ENCOUNTER 2023-04-17 09:10 | Outpatient (AMB) | payer OTHER, SELFPAY ==
--- NOTE | 2023-04-17 09:24 | MHC.OFFVIS ---
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 Bindery Machine Setter/Set Up Operator: Bindery Machine Setter/Set Up Operator Present (Yvette) Allergies Lactose Allergy (Intermediate, Uncoded 04/17/23 09:25) stomach upset HPI HPI Comments History of Present Illness Details The patient is a 62 year old postmenopausal woman presenting for annual exam.? Doing well with no euclid operator concerns. Attempting to eat a healthy diet with calcium and vitamin D and stays active with exercise. Currently not sexually active. Denies vaginal itching and irritation. STD screening offered; she accepts. Denies family hx of breast, colon and ovarian cancer. Last mammogram 05/18/22, normal. Last pap smear was in 2019, normal. UTD on colonoscopy. [facility] Medical History UTI (urinary tract infection) Elevated cholesterol HTN (hypertension) NSTEMI (non-ST elevated myocardial infarction) History of acute myocardial infarction Diabetic retinopathy screening Essential hypertension Osteopenia of left femoral neck Type 2 diabetes mellitus without complication, with no history of insulin use Atrial septal aneurysm Osteopenia Vitamin D deficiency Multinodular thyroid Jaki's disease Hyperparathyroidism Surgical History Hx of colonoscopy Hx of colonoscopy History of cardiac catheterization (~05/2020) History of partial hysterectomy Hx of tubal ligation Family History Mother Diabetes Arthritis Breast cancer, Onset Age: 70 Father No problems noted. Social History Household Members: None Housing: House Alcohol intake: current Alcohol intake frequency: holidays/special occasions only Alcohol type: wine Patient Tobacco Use Status: Former Tobacco user Quit Date: Over 15 years ago e-Cigarette/Vaping Use: Never Used service: No Current occupational status: retired Cognitive needs: No Hearing needs: No Vision needs: Yes Female Reproductive History Menstrual Age of Menarche: 12 Menopause type: surgical Total pregnancies: 2 Full term: 1 Number of Living Children: 1 Date of last pap smear: 02/17/20 (neg pap and hpv) Date of Mammogram: 05/18/22 (Birad 1) Review of Systems Const All systems reviewed & are unremarkable except as noted in HPI and below Reports as per HPI Eyes Reports no additional complaints ENT Reports no additional complaints Card Reports no additional complaints Resp Reports no additional complaints GI Reports as per HPI and Reports no additional complaints Reports as per HPI Musc Reports no additional complaints Skin/Breast Reports as per HPI Neuro Reports no additional complaints Psych Reports no additional complaints Endo Reports no additional complaints Urban/Lymph Reports no additional complaints Aller/Immun Reports no additional complaints Physical Exam Vital Signs: Last Vital Signs BP 108/72 04/17/23 09:25 BMI result Body Mass Index 39.3 Const General: cooperative, healthy appearing, no acute distress, well developed and alert Orientation/consciousness: patient oriented x3 HEENT Head: Yes normal to inspection Eyes General: appearance normal, both eyes and all related structures Neck Neck: Yes normal visual inspection Thyroid: Thyroid normal Chest Chest palpation & inspection: normal inspection of the chest and other (no puckering, dimpling, peau de orange, retraction, discharge, masses) Breast/axilla inspection: normal inspection of the breasts Breast/axilla palpation: normal palpation of the breasts Resp Effort & Inspection: normal respiratory effort GI Other: obese abdomen Inspection: Yes normal to inspection Palpation (GI): Soft to palpation Rectal Exam - Female: deferred General: Yes bladder normal to palpation External Female Exam: normal external appearance and normal appearance of the urethra Speculum Exam - Vagina: normal appearance of the vagina, normal palpation and normal vaginal discharge (white discharge, no atrophic changes ) Speculum Exam - Cervix: normal appearance of the cervix and normal palpation Bimanual exam- vagina & uterus: normal bimanual exam, normal palpation, uterine size normal, bladder normal to palpation, normal palpation and non-tender Bimanual Exam- Adnexa, other: no masses Skin General skin exam: no rashes or lesions noted Rashes: no rashes Neuro General: patient oriented x3 Cognition (Neuro): normal cognition Extrem General: Yes normal to inspection Psych Attitude: cooperative Thought process: Normal thought process present Assessment & Plan Assessment & Plan (1) Encounter for well woman exam: Code(s): Z01.419 - Encounter for gynecological examination (general) (routine) without abnormal findings Plan: Discussed: Current recommendations for pap smears per ASCCP guidelines. Breast awareness, periodic self breast exams and yearly mammogram. Maintain a healthy lifestyle, well balanced diet including Calcium 1,200 mg and Vitamin D 600 IU daily, and routine exercise. Contact the office with any postmenopausal bleeding. All of her questions and concerns were addressed to the best of my ability. She will return in one year for AG. Orders: Orders MM tomosynthesis screening BI Today Z12.31 - Encounter for screening mammogram for malignant neoplasm of breast Coding Level of Care Code Est Pt Prev Care 40-64y(51805) Diagnoses Encounter for well woman exam Z01.419
[2023-04-17 09:25] VITALS: BP 108/72; BMI 39.3
== END 2023-04-17 09:55 | disposition home or self-care (01) ==
LOC: HO.HWS 09:10
PROVIDERS: PCP Internal Medicine; Visit Provider Advanced Practice Midwife
DX: Z01.419 Encounter for gynecological examination (general) (routine) without abnormal findings (principal)
CPT/HCPCS: 99396

== ENCOUNTER → 2023-04-17 09:10 | Outpatient (BNVA) | payer OTHER, SELFPAY | PROVIDERS: PCP Internal Medicine; Visit Provider Advanced Practice Midwife | DX: Z01.419 Encounter for gynecological examination (general) (routine) without abnormal findings (principal) | CPT/HCPCS: 99396 ==

== ENCOUNTER 2023-05-24 09:11 | Outpatient (REF) | payer OTHER, SELFPAY ==
--- NOTE | ~2023-05-24 | MM_ITS ---
EXAMINATION: MM SCREENING DIGITAL BREAST TOMOSYNTHESIS, BILATERAL CLINICAL INFORMATION: Screening. Asymptomatic. COMPARISON: Mammography: This study is compared with prior exams dating back to 2018. TECHNIQUE: Digital breast tomosynthesis is performed in both the craniocaudal and mediolateral oblique views along with computer-aided detection (CAD). Synthesized 2D images are generated from the tomosynthesis. FINDINGS: There are scattered areas of fibroglandular density (ACR BI-RADS breast composition Category b). There are no significant masses, abnormal calcifications, or other abnormalities. Few, unchanged, benign calcifications are present in each breast. MM/MM tomosynthesis screening BI IMPRESSION: No mammographic evidence of malignancy. ASSESSMENT: BI-RADS BI-RADS 2 - Benign Findings RECOMMENDATION: Routine annual mammography screening. 1 year F/U This examination should not preclude the clinical evaluation of a suspicious palpable abnormality. This patient's information was entered into a reminder system with a target due date for their next mammogram.
== END 2023-05-24 09:12 | disposition home or self-care (01) ==
LOC: HO.MAMMO 09:11
PROVIDERS: PCP Internal Medicine; Referring Provider Advanced Practice Midwife; Visit Provider Internal Medicine
DX: Z12.31 Encounter for screening mammogram for malignant neoplasm of breast (principal)
CPT/HCPCS: 77063; 77067

== ENCOUNTER → 2023-05-24 09:30 | Outpatient (BNV) | payer OTHER, SELFPAY | PROVIDERS: PCP Internal Medicine; Referring Provider Advanced Practice Midwife; Visit Provider Radiology Diagnostic Radiology | DX: Z12.31 Encounter for screening mammogram for malignant neoplasm of breast (principal) | CPT/HCPCS: 77063; 77067 ==

== ENCOUNTER 2023-08-07 10:35 | Outpatient (AMB) | payer OTHER, SELFPAY ==
[2023-08-07 11:09] VITALS: BP 132/70; PULSE 85; TEMP 36.3; O2SAT 98; BMI 38.4
--- NOTE | 2023-08-07 11:09 | AM.OFFWIN_ITS ---
Intake Vital Signs 08/07/23 11:09 Height 5 ft 4 in Weight 224 lb BMI 38.4 BP 132/70 Blood Pressure Location Lt brachial Position Sitting Pulse 85 Pulse Source Pulse Oximeter Temp 97.4 F Temp Source Temporal Artery Scan Pulse Oximetry (%) 98 Oxygen Delivery Method Room Air Intake Visit Reasons: EP shoulder pain radiates down arm masked in lobby Intake Note: pt is here today for shoulder pain radiates down arm started 2 months Patient Tobacco Use Status: Former Tobacco user Quit Date: Over 15 years ago Allergies Lactose Allergy (Intermediate, Uncoded 08/07/23 12:04) stomach upset Medication List - Last Reconciled 08/07/23 by Doug Calzada MD amlodipine 10 mg PO DAILY atorvastatin 20 mg PO DAILY blood sugar diagnostic (FreeStyle Lite Strips) test blood sugar once a day calcium carbonate (Calcium 500) 500 mg PO DAILY cetirizine 10 mg PO BEDTIME PRN cholecalciferol (vitamin D3) 50 mcg PO BEDTIME lancets (FreeStyle Lancets) Test blood sugar once a day levothyroxine 100 mcg PO DAILY metformin 500 mg PO BEDTIME metoprolol succinate ER 100 mg PO DAILY Do you need a note to return to daycare/school/sports/work: Yes HPI EP shoulder pain radiates down arm masked in lobby HPI Details 63-year-old female presents to the [facility] for a sick visit. Patient is reporting sx of right shoulder pain for many months. In the past month, she has started feeling restriction in range of motion. Does not recall any fall or injury. [facility] Medical History UTI (urinary tract infection) Elevated cholesterol HTN (hypertension) NSTEMI (non-ST elevated myocardial infarction) History of acute myocardial infarction Diabetic retinopathy screening Essential hypertension Osteopenia of left femoral neck Type 2 diabetes mellitus without complication, with no history of insulin use Atrial septal aneurysm Osteopenia Vitamin D deficiency Multinodular thyroid Jaki's disease Hyperparathyroidism Surgical History Hx of colonoscopy Hx of colonoscopy History of cardiac catheterization (~05/2020) History of partial hysterectomy Hx of tubal ligation Family History Mother Diabetes Arthritis Breast cancer, Onset Age: 70 Father No problems noted. Social History Household Members: None Housing: House Alcohol intake: current Alcohol intake frequency: holidays/special occasions only Alcohol type: wine Patient Tobacco Use Status: Former Tobacco user Quit Date: Over 15 years ago e-Cigarette/Vaping Use: Never Used service: No Current occupational status: retired Cognitive needs: No Hearing needs: No Vision needs: Yes Female Reproductive History Menstrual Age of Menarche: 12 Physical Exam Vital Signs: Last Vital Signs Temp 97.4 F 08/07/23 11:09 Pulse 85 08/07/23 11:09 BP 132/70 08/07/23 11:09 Pulse Ox 98 08/07/23 11:09 Oxygen Delivery Method Room Air 08/07/23 11:09 BMI result Body Mass Index 38.4 Extrem Other: Right shoulder: No acromion tenderness. Pain on abduction greater than 90 degrees. Forward flexion upto 90 degrees, backward extension restricted due to pain. Full internal and external rotation. Assessment & Plan Assessment & Plan (1) Sprain of right shoulder: Code(s): S43.401A - Unspecified sprain of right shoulder joint, initial encounter Plan xray images personally reviewed by me. NSAIDS and cyclobenzaprine called in. Physical therapy. If sx do not improve to follow up here. PT ordered. Orders: Orders XR shoulder RT min 2V Today S43.401A - Unspecified sprain of right shoulder joint, initial encounter Coding Level of Care Code Est Pt Level 4 (45874) Diagnoses Sprain of right shoulder S43.401A
== END 2023-08-07 13:46 | disposition home or self-care (01) ==
PROVIDERS: PCP Internal Medicine; Visit Provider Internal Medicine
DX: S43.401A Unspecified sprain of right shoulder joint, initial encounter (principal)
CPT/HCPCS: 99214

== ENCOUNTER 2023-08-07 12:10 | Outpatient (REF) | payer OTHER, SELFPAY ==
--- NOTE | ~2023-08-07 | XR_ITS ---
EXAMINATION: XR SHOULDER, RIGHT CLINICAL INFORMATION: Right shoulder sprain. COMPARISON: None available. TECHNIQUE: AP, Grashey, and scapular Y views of the right shoulder. FINDINGS: Moderate to severe acromioclavicular joint space narrowing with marginal osteophytes. Moderate glenohumeral joint space are small marginal osteophytes. Prominent subacromial spurring. No acute fracture or dislocation. No concerning lytic or blastic osseous lesion. XR/XR shoulder RT min 2V IMPRESSION: 1. Moderate to severe acromioclavicular and mild glenohumeral osteoarthritis. 2. Prominent subacromial spurring.
== END 2023-08-07 12:11 | disposition home or self-care (01) ==
LOC: HO.HMGCX 12:10
PROVIDERS: PCP Internal Medicine; Visit Provider Internal Medicine
DX: S43.401A Unspecified sprain of right shoulder joint, initial encounter (principal)
CPT/HCPCS: 73030

== ENCOUNTER 2023-08-24 09:20 | Outpatient (AMB) | payer OTHER, SELFPAY ==
[2023-08-24 09:32] VITALS: BP 116/84; PULSE 63; O2SAT 100; BMI 38.4
--- NOTE | 2023-08-24 09:32 | MHC.PC.OV ---
Vital Signs 08/24/23 09:32 Height 5 ft 4 in Weight 224 lb BMI 38.4 BP 116/84 Blood Pressure Location Lt brachial Position Sitting Pulse 63 Pulse Source Pulse Oximeter Pulse Oximetry (%) 100 Oxygen Delivery Method Room Air Intake Visit Reasons: follow up from walk in Intake Note: Pt is here today to f/u walkin Rt shoulder pain: Pt is going to her first PT appt today Allergies Lactose Allergy (Intermediate, Uncoded 08/24/23 10:30) stomach upset Medication List - Last Reconciled 08/24/23 by Di Bae MD amlodipine 10 mg PO DAILY atorvastatin 20 mg PO DAILY blood sugar diagnostic (FreeStyle Lite Strips) test blood sugar once a day calcium carbonate (Calcium 500) 500 mg PO DAILY cetirizine 10 mg PO BEDTIME PRN cholecalciferol (vitamin D3) 50 mcg PO BEDTIME lancets (FreeStyle Lancets) Test blood sugar once a day levothyroxine 100 mcg PO DAILY metformin 500 mg PO BEDTIME metoprolol succinate ER 100 mg PO DAILY Tobacco use date assessed: 08/24/23 Fall risk assessment: No Falls in past year Last assessed Fall Risk: 08/24/23 Dental Screening Dental Screen Date: 08/24/23 Did you have a dental visit in the last 12 months?: No Was dental information given to patient?: Patient declined HPI follow up from walk in HPI Details 63-year-old lady here today for follow-up after recent walk-in visit complaining of pain in her right shoulder going down right upper arm. No history of trauma or any strenuous exertion. No accompanying numbness tingling or weakness in right upper extremity. Unable to raise her right arm more than 90 degrees without experiencing pain, unable to do overhead movement with her right arm or unhook her bra using her right hand, again due to pain and stiffness she has been taking ibuprofen, massaging diclofenac gel, which affords only temporary relief. She does have an appointment to start physical therapy this afternoon. [facility] Medical History UTI (urinary tract infection) Elevated cholesterol HTN (hypertension) NSTEMI (non-ST elevated myocardial infarction) History of acute myocardial infarction Diabetic retinopathy screening Essential hypertension Osteopenia of left femoral neck Type 2 diabetes mellitus without complication, with no history of insulin use Atrial septal aneurysm Osteopenia Vitamin D deficiency Multinodular thyroid Jaki's disease Hyperparathyroidism Surgical History Hx of colonoscopy Hx of colonoscopy History of cardiac catheterization (~05/2020) History of partial hysterectomy Hx of tubal ligation Family History Mother Diabetes Arthritis Breast cancer, Onset Age: 70 Father No problems noted. Social History Household Members: None Housing: House Alcohol intake: current Alcohol intake frequency: holidays/special occasions only Alcohol type: wine Patient Tobacco Use Status: Former Tobacco user Quit Date: Over 15 years ago e-Cigarette/Vaping Use: Never Used service: No Current occupational status: retired Cognitive needs: No Hearing needs: No Vision needs: Yes Female Reproductive History Menstrual Age of Menarche: 12 Questionnaire Thrive Questionnaire Date Thrive assessed: 11/03/22 I am a: Patient What is your living situation today?: I have a steady place to live Within the past 12 months, did the food you bought not last and you didn't have the money to get more?: Never true Within the past 12 months, did you worry whether your food would run out before you got money to buy more?: Never true Please select the resources that you would like help with: None THRIVE Score: 0 AUDIT C Alcohol Use Questionnaire (AUDIT-C) 1. How often do you have a drink containing alcohol?: Monthly or less 2. How many drinks containing alcohol do you have on a typical day when you are drinking?: 1 or 2 3. How often do you have six or more drinks on one occasion?: Never Total Score: 1 BRENNAN-7 AMB Questionnaire BRENNAN-7 Date BRENNAN - 7 assessed: 11/03/22 Feeling nervous, anxious, or on edge: 0 = Not at all Not being able to stop or control worryin = Not at all Worrying too much about different things: 0 = Not at all Trouble relaxin = Not at all Being so restless that it is hard to sit still: 0 = Not at all Becoming easily annoyed or irritable: 0 = Not at all Feeling afraid as if something awful might happen: 0 = Not at all Total BRENNAN-7 score (0-4 normal; 5-9 mild; 10-14 moderate; 15-21 severe): 0 Source: Developed by Drs. Hiren Ragland, Deepa Durán, Anthony Reddy and colleagues, with an educational dania from [employer]. Review of Systems Const All systems reviewed & are unremarkable except as noted in HPI and below Physical exam (Primary Care) Vital Signs: Last Vital Signs Pulse 63 08/24/23 09:32 BP 116/84 08/24/23 09:32 Pulse Ox 100 08/24/23 09:32 Oxygen Delivery Method Room Air 08/24/23 09:32 BMI result Body Mass Index 38.4 Tobacco/Smoking Status: Tobacco use Status Tobacco use date assessed 08/24/23 08/24/23 09:37 Patient Tobacco Use Status Former Tobacco user 08/24/23 09:32 e-Cigarette/Vaping Use Never Used 08/24/23 09:32 Thrive Assessment: Date of Thrive Assessment Date Thrive assessed 11/03/22 08/24/23 09:32 Const Other: Alert oriented x3, no acute distress noted ambulatory normal gait Orientation/consciousness: patient oriented x3 Neck Neck: Yes full ROM, Yes no lymphadenopathy and Yes supple Back/Spine/Pelvis Other: Tenderness on palpation over right trapezius muscle Skin General skin exam: no rashes or lesions noted Neuro General: patient oriented x3, gait normal, tone normal, Normal light touch and pain sensation, no focal motor deficits and CN's II-XI intact bilaterally Extrem Other: Unable to abduct or hyperextend right arm more than 90 degrees due to pain and stiffness General: Yes no joint enlargement, Yes no clubbing, cyanosis or edema and Yes normal gait Assessment and Plan Assessment & Plan (1) Sprain of right shoulder: Code(s): S43.401A - Unspecified sprain of right shoulder joint, initial encounter Plan: May continue taking Tylenol arthritis, applying moist heat to affected area or diclofenac gel, may also try applying Salonpas patch over right trapezius area, will be starting physical therapy today Coding Level of Care Code Est Pt Level 3 (69928) Diagnoses Sprain of right shoulder S43.401A
== END 2023-08-24 11:02 | disposition home or self-care (01) ==
PROVIDERS: PCP Internal Medicine; Visit Provider Internal Medicine
DX: S43.401A Unspecified sprain of right shoulder joint, initial encounter (principal)
CPT/HCPCS: 99213

== ENCOUNTER 2023-09-14 14:00 | Outpatient (RCR) | payer OTHER, SELFPAY ==
--- NOTE | 2023-08-24 16:38 | MHC.PT.EP ---
[facility] [place] Office [place] Office [place] Office [address] [place] [address] [phone] F: [phone] F: [phone] F: [phone] F: [phone] Physical Therapy Plan of Care Date of Evaluation: 08/24/23 Date of Surgery: NA Diagnosis: R SHOULDER SPRAIN Assessment: Pt IS 63 YO RHD F REFERRED TO PT FROM WALK IN CLINIC WITH R SHLDER SPRAIN. Pt REPORTS INSIDIOUS ONSET R SHLDER PAIN X 3 MONTHS. PRESENTS WITH POOR POSTURE, LIMITED R SHLDER ROM (CAPSULAR PATTERN), AND LIMITED R UE STRENGTH WITH PAIN AND DECREASED USE OF R UE FOR ADLS. SHOULD BENEFIT FROM PT TO ADDRESS THESE ISSUES. OF NOTE, IF NO IMPROVEMENT IN PT MAY BENEFIT FROM ORTHO CONSULT/CORTISONE INJECTION Frequency and Duration: The patient will be seen 2X/WK X 8 WKS Short Term Goals: 1. INCREASED POSTURE AWARENESS AND AWARENESS SHLDER CARE 2. INCREASED R SHLDER ROM 10-20 DEGREES T/O 3. Pt TO REPORT INCREASED USE R UE FOR ADLS Longterm Goals: 1. I HEP WITH DC EX PLAN 2. INCREASED R UE ROM FLEX TO 140, ABD TO 150, ER TO 75 3. INCREASED STRENGTH R UE 1/2MM GRADE AT LEAST 4. DECREASED R SHLDER PAIN AT LEAST 50% WITH ADLS Treatment Plan: Modalities to reduce pain, spasms and effusion. Manual therapy to restore motion and function. Therapeutic exercise to improve strength and flexibility. Neuromuscular re-education for posture and balance. Therapeutic activities to return to functional activities of daily living. Electronically signed by: CRISTIN MESSER PT Please sign and return to therapist. Thank you for your referral.
--- NOTE | 2023-09-25 13:42 | MHC.PT.DC ---
[facility] [place] Office [place] Office [place] Office [address] [place] [address] [phone] F: [phone] F: [phone] F: [phone] F: [phone] Physical Therapy Discharge Report Diagnosis: R SHOULDER SPRAIN Date of Surgery: NA Date of Evaluation: 08/24/23 Date of Discharge: 09/25/23 Treatments to Date: 6 Cancellations to Date: No Shows to Date: Discharge Status: Improved Function Independent with HEP Patient Elected to Stop Recommend MD Follow-up Discharge Summary: Pt CALLED TO DC SELF Electronically signed by: CRISTIN MESSER PT Please sign and return to therapist. Thank you for your referral.
== END 2023-09-25 13:42 | disposition home or self-care (01) ==
LOC: HO.PT 14:00
PROVIDERS: PCP Internal Medicine; Visit Provider Internal Medicine
DX: S43.401D Unspecified sprain of right shoulder joint, subsequent encounter (principal)
CPT/HCPCS: 97110; 97140; 97161; 97535

== ENCOUNTER 2023-11-02 08:33 | Outpatient (REF) | payer OTHER, SELFPAY ==
[2023-11-02 10:41] LABS: Estimated Average Glucose 148 mg/dL; Hemoglobin A1c % 6.8 % (<6.0)
[2023-11-02 10:46] LABS: Alanine Aminotransferase 10 U/L (0-31); Anion Gap 11 (12-20); Aspartate Amino Transferase 12 U/L (5-31); Blood Urea Nitrogen 14 mg/dL (9-16); Calcium 8.7 mg/dL (8.4-10.2); Carbon Dioxide 28 mmol/L (22-29); Chloride 106 mmol/L (96-108); Cholesterol 157 mg/dL (<200); Estimated Glomerular Filt Rate 55; Glucose Fasting 121 mg/dL (60-99); HDL Cholesterol 59 mg/dL (>40); LDL Cholesterol Calculated 87 mg/dL (<100); Potassium 3.8 mmol/L (3.3-5.1); Sodium 141 mmol/L (135-145); Triglycerides 55 mg/dL (<150)
[2023-11-02 11:07] LABS: Vitamin D 25-OH Total 38.9 ng/mL (>30)
[2023-11-02 11:32] LABS: Creatinine Urine 207.49 mg/dL; Microalbum/Creatinine Ratio Ur 5.7 ug/mg cr (<30)
== END 2023-11-02 08:34 | disposition home or self-care (01) ==
LOC: HO.HMGCLDS 08:33
PROVIDERS: PCP Internal Medicine; Visit Provider Internal Medicine
DX: I10 Essential (primary) hypertension (principal); M85.852 Other specified disorders of bone density and structure, left thigh; E11.9 Type 2 diabetes mellitus without complications; E55.9 Vitamin D deficiency, unspecified
CPT/HCPCS: 36415; 80048; 80061; 82043; 82306; 82570; 83036; 84450; 84460

== ENCOUNTER 2023-11-07 12:25 | Outpatient (AMB) | payer OTHER, SELFPAY ==
[2023-11-07 12:27] VITALS: BP 122/72; PULSE 72; O2SAT 100; BMI 38.6
--- NOTE | 2023-11-07 12:27 | A.OFFPC_ITS ---
Vital Signs 11/07/23 12:27 Height 5 ft 4 in Weight 225 lb BMI 38.6 BP 122/72 Blood Pressure Location Lt brachial Position Sitting Pulse 72 Pulse Source Pulse Oximeter Pulse Oximetry (%) 100 Oxygen Delivery Method Room Air Intake Visit Reasons: Annual PE Intake Note: Pt is here today for her PE: mammogram 05/24/23, colonoscopy 08/12/20 Allergies Lactose Allergy (Intermediate, Uncoded 01/29/24 08:47) stomach upset Medication List - Last Reconciled 11/07/23 by Di Bae MD amlodipine 10 mg PO DAILY atorvastatin 20 mg PO DAILY blood sugar diagnostic (FreeStyle Lite Strips) test blood sugar once a day calcium carbonate (Calcium 500) 500 mg PO DAILY cetirizine 10 mg PO BEDTIME PRN cholecalciferol (vitamin D3) 50 mcg PO BEDTIME lancets (FreeStyle Lancets) Test blood sugar once a day levothyroxine 100 mcg PO DAILY metformin 500 mg PO BEDTIME metoprolol succinate ER 100 mg PO DAILY Tobacco use date assessed: 11/07/23 Fall risk assessment: No Falls in past year Last assessed Fall Risk: 11/07/23 Dental Screening Dental Screen Date: 11/07/23 Did you have a dental visit in the last 12 months?: Yes Did you have a dental problem in the last 6 months where you did not have access to dental care?: No Was dental information given to patient?: Patient has dentist HPI Annual PE HPI Details 63-year-old lady here today for her phys ical exam. She has diabetes mellitus currently stable and controlled on metformin 500 mg at night with supper, with latest hemoglobin A1c at 6.8%. She has history of papillary thyroid carcinoma status post total thyroidectomy , currently on levothyroxine 100 mcg taken once a day in a.m. had right and left superior parathyroidectomy due to primary hyperparathyroidism last 10/2022, currently on Citracal. She takes atorvastatin 20 mg daily for her hyperlipidemia, with latest fasting labs within normal limits Hypertension is controlled on amlodipine 10 mg daily and metoprolol succinate ER 200 mg daily She is up-to-date with her screening mammogram, done last 05/24/23, and had a screening colonoscopy done 08/12/[address] Childress which came back with negative findings, repeat due again in 2031. Still complaining of pain in right upper arm unable to raise it more than 90 degrees. Has already had physical therapy with no improvement. X-ray of right shoulder joint showed moderate to severe acromioclavicular and mild glenohumeral osteoarthritis, and prominent subacromial spurring.. REPLACED BY [facility] Medical History (Updated 03/22/24 @ 03:35 by Di Bae MD) History of primary hyperparathyroidism Hx of papillary thyroid carcinoma Menopausal vaginal dryness History of hyperparathyroidism Glenohumeral arthritis Acromioclavicular joint arthritis HTN (hypertension) NSTEMI (non-ST elevated myocardial infarction) Diabetic retinopathy screening Essential hypertension Osteopenia of left femoral neck Type 2 diabetes mellitus without complication, with no history of insulin use Atrial septal aneurysm Vitamin D deficiency Multinodular thyroid Jaki's disease Surgical History (Updated 03/22/24 @ 03:25 by Di Bae MD) History of total thyroidectomy History of parathyroidectomy Hx of colonoscopy Hx of colonoscopy History of cardiac catheterization (~05/2020) History of partial hysterectomy Hx of tubal ligation Family History Mother Diabetes Arthritis Breast cancer, Onset Age: 70 Father No problems noted. Social History Household Members: None Housing: House Alcohol intake: current Alcohol intake frequency: holidays/special occasions only Alcohol type: wine Patient Tobacco Use Status: Former Tobacco user e-Cigarette/Vaping Use: Never Used service: No Current occupational status: retired Cognitive needs: No Hearing needs: No Vision needs: Yes Female Reproductive History Menstrual Age of Menarche: 12 Menopause type: surgical Date of Mammogram: 05/24/23 Questionnaire PHQ-9 Over the last 2 weeks, how often have you been bothered by any of the following problems? 1. Little interest or pleasure in doing things: not at all 2. Feeling down, depressed, or hopeless: not at all 3. Trouble falling or staying asleep, or sleeping too much: not at all 4. Feeling tired or having little energy: not at all 5. Poor appetite or overeating: not at all 6. Feeling bad about yourself - or that you are a failure or have let yourself or your family down: not at all 7. Trouble concentrating on things, such as reading the newspaper or watching television: not at all 8. Moving or speaking so slowly that other people could have noticed. Or the opposite - being so fidgety or restless that you have been moving around a lot more than usual: not at all 9. Thoughts that you would be better off or of hurting yourself in some way: not at all Total score: 0 Depression Screening Interpretation: Negative Depression Screening Done: Yes 30724 - PHQ-9 Billing: Yes Source: Developed by Drs. Hiren Ragland, Deepa Durán, Anthony Reddy and colleagues, with an educational dania from [employer]. Thrive Questionnaire Date Thrive assessed: 11/07/23 I am a: Patient What is your living situation today?: I have a steady place to live Within the past 12 months, did the food you bought not last and you didn't have the money to get more?: Never true Within the past 12 months, did you worry whether your food would run out before you got money to buy more?: Never true Do you have trouble paying for medicines?: No Do you have trouble getting transportation to medical appointments?: No Do you have trouble paying your heating and electricity bill?: No Do you have trouble taking care of your child, family member or friend?: No Do you have trouble with day-to-day activities such as bathing, preparing meals, shopping, managing finances, etc.?: No Are you currently unemployed and looking for a job?: No Are you interested in more education?: No THRIVE Score: 0 AUDIT C Alcohol Use Questionnaire (AUDIT-C) 1. How often do you have a drink containing alcohol?: Monthly or less 2. How many drinks containing alcohol do you have on a typical day when you are drinking?: 1 or 2 3. How often do you have six or more drinks on one occasion?: Never Total Score: 1 BRENNAN-7 AMB Questionnaire BRENNAN-7 Date BRENNAN - 7 assessed: 11/07/23 Feeling nervous, anxious, or on edge: 0 = Not at all Not being able to stop or control worryin = Not at all Worrying too much about different things: 0 = Not at all Trouble relaxin = Not at all Being so restless that it is hard to sit still: 0 = Not at all Becoming easily annoyed or irritable: 0 = Not at all Feeling afraid as if something awful might happen: 0 = Not at all Total BRENNAN-7 score (0-4 normal; 5-9 mild; 10-14 moderate; 15-21 severe): 0 Source: Developed by Drs. Hiren Ragland, Deepa Durán, Anthony Reddy and colleagues, with an educational dania from [employer]. Review of Systems Const Denies body aches, Denies fatigue, Denies fever(s), Denies headache(s), Denies malaise, Denies snoring and Denies weakness Eyes Details: Goes to [facility] Reports no additional complaints ENT Denies dizziness, Denies headache(s) and Denies nasal congestion Card Denies chest pain, Denies chest pain with activity, Denies syncope, Denies rapid heart rate, Denies pedal edema, Denies leg edema, Denies lightheadedness, Denies palpitations, Denies dyspnea and Denies dyspnea on exertion Resp Denies cough, Denies dyspnea, Denies dyspnea on exertion and Denies snoring GI Denies abdominal pain, Denies melena, Denies bloating, Denies hematochezia and Denies change in stool character Denies urinary frequency, Denies difficulty voiding, Denies nocturia, Denies dysuria, Denies urinary incontinence and Denies urinary urgency Musc Reports as per HPI, Denies joint swelling, Denies muscle weakness, Denies numbness and Denies tingling Skin/Breast Denies breast swelling, Denies breast pain, Denies breast mass, Denies lesions and Denies rash Neuro Denies dizziness, Denies syncope, Denies headache(s), Denies numbness, Denies tingling and Denies weakness Psych Reports no additional complaints Endo Denies fatigue, Denies polyphagia, Denies polydipsia, Denies polyuria and Denies palpitations Urban/Lymph Reports no additional complaints Aller/Immun Reports no additional complaints Physical exam (Primary Care) Vital Signs: Last Vital Signs Pulse 72 11/07/23 12:27 BP 122/72 11/07/23 12:27 Pulse Ox 100 11/07/23 12:27 Oxygen Delivery Method Room Air 11/07/23 12:27 BMI result Body Mass Index 38.6 Tobacco/Smoking Status: Tobacco use Status Tobacco use date assessed 11/07/23 11/07/23 12:30 Patient Tobacco Use Status Former Tobacco user 11/07/23 12:30 e-Cigarette/Vaping Use Never Used 11/07/23 12:30 PHQ-9: PHQ-9 Score PHQ-9: Total score 0 03/22/24 03:33 Depression Screening Interpretation: Negative Thrive Assessment: Date of Thrive Assessment Date Thrive assessed 11/07/23 11/07/23 12:34 Const Other: Alert oriented x3, no acute distress noted ambulatory normal gait Orientation/consciousness: patient oriented x3 HENMT Head: Yes normocephalic Ears: external ears normal, TM's normal bilaterally and EAC's normal General nose exam: Normal external nose present Face and sinus: Yes face symmetric Mouth: Normal oral and palatal mucosa present, tongue normal, oropharynx normal and moist mucous membranes Eyes General: appearance normal, both eyes and all related structures Neck Other: healed sx scar anterior neck Neck: Yes full ROM, Yes no lymphadenopathy and Yes supple Chest Chest palpation & inspection: normal inspection of the chest Breast/axilla palpation: normal palpation of the breasts Resp Auscultation: clear to auscultation bilaterally Cardio Other: S1-S2 present regular rate and rhythm GI Auscultation: normal bowel sounds General: Yes no CVA tenderness Back/Spine/Pelvis Back: no CVA tenderness Skin General skin exam: no rashes or lesions noted Neuro General: patient oriented x3, gait normal, tone normal, Normal light touch and pain sensation, no focal motor deficits and CN's II-XI intact bilaterally Extrem Other: Unable to abduct or hyperextend right arm more than 90 degrees due to pain and stiffness General: Yes no joint enlargement, Yes no clubbing, cyanosis or edema and Yes normal gait Psych Appearance: grossly normal and well kempt Mental Status: mental status grossly normal Speech and movement: Normal speech and movement present Affect: normal affect Results Reviewed Results Reviewed: Name: Jacki Conklin Age/Sex: 63/F : 1960 Unit#: [id number] Attend Dr: Di Bae MD Re11/02/23 Status: DEP [facility]: SPEC : [id number] SHAUNA: 11/02/23 STATUS: COMP REQ : [id number] RECD: 11/02/23-[address]: Di Bae MD COMP: 11/02/23 ENTERED: 11/02/[address] [facility] [address]: ORDERED: Met Prof Fast, AST, ALT, Lipid Panel, Vitamin D 25-OH Test Result Flag Reference Sodium 141 135-145 mmol/L Potassium 3.8 3.3-5.1 mmol/L CL 106 96-108 mmol/L CO2 28 22-29 mmol/L Gap 11 L 12-20 BUN 14 9-16 mg/dL Creat 1.02 0.5-1.4 mg/dL EGFR 55 NOTE: For -[place] individuals, multiply the result by 1.210. Chronic Kidney Disease: Estimated GFR < 60 mL/ min/1.73m2 Severe Kidney Disease: Estimated GFR < 15 mL/min/1.73m2 FBS 121 H 60-99 mg/dL A fasting glucose from 100-125 mg/dl is considered impaired (pre-diabetes). CA 8.7 # 8.4-10.2 mg/dL AST (GOT) 12 5-31 U/L ALT (GPT) 10 0-31 U/L Triglyceride 55 <150 mg/dL Desirable Triglyceride: less than 150 mg/dL Borderline High Triglyceride 150-199 mg/dL High Triglyceride: 200-499 mg/dL Very High Triglyceride: greater than or equal to 5OO mg/dL Cholesterol 157 <200 mg/dL Desirable Cholesterol: less than 200 mg/dL Borderline High Cholesterol: 200-239 mg/dL High Cholesterol: greater than 239 mg/dL LDL Calculated 87 <100 mg/dL Desirable LDL: less than 100 mg/dL Near Optimal/Above Optimal LDL: 110-129 mg/dL Borderline High LDL: 130-159 mg/dL High LDL: 160-189 mg/dL Very High LDL: greater than or equal to 190 mg/dL HDL 59 >40 mg/dL Desirable HDL: greater than 40 mg/dL Note: This HDL assay may give artificially low results in patients with liver disease. Vit D 25-OH Tot 38.9 >30 ng/mL Health Based Reference Values* < 20 ng/mL Deficient 20-30 ng/mL Insufficient > 30 ng/mL Sufficient Laboratory Tests 07/08/20 08/12/20 11/02/23 13:30 06:31 08:39 POC Glucose 102 Estimat Average Glucose 148 Hemoglobin A1c % 6.8 H Urine Creatinine 207.49 Urine Microalbumin 12.0 Microalb/Creat Ratio 5.7 Coding Level of Care Code Est Pt Prev Care 40-64y(90021) Diagnoses Annual visit for general adult medical examination with abnormal findings Z 00.01 Arthritis of right acromioclavicular joint M19.011 Laterality: right Glenohumeral arthritis M19.019 Osteopenia of left femoral neck M85.852 Type 2 diabetes mellitus without complication, with no history of insulin use E11.9 Essential hypertension I10 History of primary hyperparathyroidism Z86.39 Hx of papillary thyroid carcinoma Z85.850
== END 2023-11-07 13:05 | disposition home or self-care (01) ==
PROVIDERS: PCP Internal Medicine; Visit Provider Internal Medicine
DX: Z00.00 Encounter for general adult medical examination without abnormal findings (principal); M19.011 Primary osteoarthritis, right shoulder; E11.9 Type 2 diabetes mellitus without complications; M85.852 Other specified disorders of bone density and structure, left thigh; I10 Essential (primary) hypertension; Z86.39 Personal history of other endocrine, nutritional and metabolic disease; Z85.850 Personal history of malignant neoplasm of thyroid
CPT/HCPCS: 99396

== ENCOUNTER 2023-12-03 08:54 | Outpatient (AMB) | payer OTHER, SELFPAY ==
--- NOTE | 2023-12-03 09:00 | MHC.OFFVIS ---
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 Patient reports about 4 months ago she thought she pulled something in her shoulder. She was seen in [facility] in August for this where they referred her to PT. She found no relief with PT. She is unable to do daily activities such as doing her hair, reach out for things or lift her arm above her pain due to immediate pain. She has tried the use of Tylenol but found no relief. She denies numbness, tingling, and recent injuries. 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 Patient reports about 4 months ago she thought she pulled something in her shoulder. She was seen in [facility] in August for this where they referred her to PT. She found no relief with PT. She is unable to do daily activities such as doing her hair, reach out for things or lift her arm above her pain due to immediate pain. She has tried the use of Tylenol but found no relief. She denies numbness, tingling, and recent injuries. [facility] Medical History History of hyperparathyroidism Glenohumeral arthritis Acromioclavicular joint arthritis UTI (urinary tract infection) Elevated cholesterol HTN (hypertension) NSTEMI (non-ST elevated myocardial infarction) History of acute myocardial infarction Diabetic retinopathy screening Essential hypertension Osteopenia of left femoral neck Type 2 diabetes mellitus without complication, with no history of insulin use Atrial septal aneurysm Osteopenia Vitamin D deficiency Multinodular thyroid Jaki's disease Surgical History Hx of colonoscopy Hx of colonoscopy History of cardiac catheterization (~05/2020) History of partial hysterectomy Hx of tubal ligation Family History Mother Diabetes Arthritis Breast cancer, Onset Age: 70 Father No problems noted. Social History Household Members: None Housing: House Alcohol intake: current Alcohol intake frequency: holidays/special occasions only Alcohol type: wine Patient Tobacco Use Status: Former Tobacco user e-Cigarette/Vaping Use: Never Used service: No Current occupational status: retired Cognitive needs: No Hearing needs: No Vision needs: Yes Female Reproductive History Menstrual Age of Menarche: 12 Physical Exam Vital Signs: BMI result Body Mass Index 38.3 Const General: cooperative, healthy appearing, no acute distress and well groomed Orientation/consciousness: oriented to person and oriented to place HEENT Head: Yes normal to inspection, Yes normocephalic and Yes atraumatic Eyes General: appearance normal, both eyes and all related structures Alignment and Position: alignment normal Conjunctivae: conjunctivae normal EOM: EOMs intact bilaterally Neck Neck: Yes normal visual inspection and Yes trachea midline Resp Other: No rerpiratory distress Effort & Inspection: normal respiratory effort and able to speak in complete sentences Cardio Other: Palpable radial pulse with no appreciable rythmic abnormalities GI Other: No abdominal distension Back/Spine/Pelvis Cervical Spine: normal cervical lordosis and cervical ROM normal Skin General skin exam: no rashes or lesions noted Neuro General: oriented to person, oriented to place and gait normal Extrem Other: 10 deg ER compared to 45 deg on left Results Reviewed Results Reviewed: I personally reviewed relevant radiographs. Moderate ACJ OA Mild GH OA Assessment & Plan Assessment & Plan (1) Adhesive capsulitis of right shoulder: Code(s): M75.01 - Adhesive capsulitis of right shoulder Category: Medical Plan: This is a 63-year-old woman with adhesive capsulitis of the right shoulder. She also has mild glenohumeral osteoarthritis. Her primary complaint, however, is restricted motion. She is improving slightly over the past 6 months. I discussed the pathophysiology adhesive capsulitis and what to expect over the next 6 months. She should see me back in 6 months if there is no improvement. I instructed her on range of motion exercises. Coding Level of Care Code New Pt Level 3 (22962) Diagnoses Adhesive capsulitis of right shoulder M75.01
[2023-12-03 09:02] VITALS: BMI 38.3
== END 2023-12-03 09:13 | disposition home or self-care (01) ==
PROVIDERS: PCP Internal Medicine; Visit Provider Orthopaedic Surgery
DX: M75.01 Adhesive capsulitis of right shoulder (principal)
CPT/HCPCS: 99203

== ENCOUNTER → 2023-12-03 08:54 | Outpatient (BNVA) | payer OTHER, SELFPAY | PROVIDERS: PCP Internal Medicine; Visit Provider Orthopaedic Surgery | DX: M75.01 Adhesive capsulitis of right shoulder (principal) | CPT/HCPCS: 99202 ==

== ENCOUNTER 2024-01-29 08:45 | Outpatient (AMB) | payer OTHER, SELFPAY ==
--- NOTE | 2024-01-29 08:46 | AM.OFFWIN_ITS ---
Intake Vital Signs 01/29/24 08:47 Height 5 ft 4 in Weight 218 lb BMI 37.4 BP 118/80 Blood Pressure Location Rt radial Position Sitting Pulse 67 Pulse Source Pulse Oximeter Temp 98.5 F Temp Source Oral Pulse Oximetry (%) 98 Oxygen Delivery Method Room Air Intake Visit Reasons: EP Excessive urination Intake Note: pt c/o urinary urgency, burning, discomfort. Started 2 days ago Patient Tobacco Use Status: Former Tobacco user Allergies Lactose Allergy (Intermediate, Uncoded 01/29/24 08:47) stomach upset Do you need a note to return to daycare/school/sports/work: No HPI EP Excessive urination HPI Details Pt reports excessive urination, primarily nocturia or noted more frequently if she is resting. She states this has been going on a few weeks but over last 3-4 days has worsened. Denies pain with urination, vaginal discharge, malodorous urine. She has no sexual partners. She is diabetic but reports good blood sugar control, generally AM fasting in 120s. Last A1C in October on record is 6.8%. No new meds, denies abd pain. + mild low back pain. [facility] Medical History (Updated 01/29/24 @ 09:26 by Leila Jones NP) Menopausal vaginal dryness History of hyperparathyroidism Glenohumeral arthritis Acromioclavicular joint arthritis UTI (urinary tract infection) Elevated cholesterol HTN (hypertension) NSTEMI (non-ST elevated myocardial infarction) History of acute myocardial infarction Diabetic retinopathy screening Essential hypertension Osteopenia of left femoral neck Type 2 diabetes mellitus without complication, with no history of insulin use Atrial septal aneurysm Osteopenia Vitamin D deficiency Multinodular thyroid Jaki's disease Surgical History Hx of colonoscopy Hx of colonoscopy History of cardiac catheterization (~05/2020) History of partial hysterectomy Hx of tubal ligation Family History Mother Diabetes Arthritis Breast cancer, Onset Age: 70 Father No problems noted. Social History Household Members: None Housing: House Alcohol intake: current Alcohol intake frequency: holidays/special occasions only Alcohol type: wine Patient Tobacco Use Status: Former Tobacco user e-Cigarette/Vaping Use: Never Used service: No Current occupational status: retired Cognitive needs: No Hearing needs: No Vision needs: Yes Female Reproductive History Menstrual Age of Menarche: 12 Review of Systems Const Reports as per HPI, Denies chills and Denies fever(s) Card Denies dyspnea and Denies dyspnea on exertion Resp Denies dyspnea and Denies dyspnea on exertion GI Denies diarrhea, Denies nausea and Denies vomiting Reports no additional complaints, Reports as per HPI, Reports urinary frequency, Denies dysuria, Denies urinary hesitancy, Reports urinary urgency, Denies vaginal discharge and Reports vaginal dryness Physical Exam Vital Signs: Last Vital Signs Temp 98.5 F 01/29/24 08:47 Pulse 67 01/29/24 08:47 BP 118/80 01/29/24 08:47 Pulse Ox 98 01/29/24 08:47 Oxygen Delivery Method Room Air 01/29/24 08:47 BMI result Body Mass Index 37.4 Const General: healthy appearing, comfortable and no acute distress Resp Effort & Inspection: normal respiratory effort and able to speak in complete sentences GI Inspection: Yes normal to inspection Palpation (GI): Soft to palpation, nontender and no guarding Auscultation: normal bowel sounds General: Yes no CVA tenderness Back/Spine/Pelvis Back: no CVA tenderness Results AMB Urinalysis, Automated UA Leukoctes 0 Gorge/uL Last Edit by Jenaro Salguero CMA on 01/29/24 08:57 UA Nitrite Negative Last Edit by Jenaro Salguero CMA on 01/29/24 08:57 UA Urobilinogen 0.2 mg/dL Last Edit by Jenaro Salguero CMA on 01/29/24 08:57 UA Protein 0 mg/dL Last Edit by Jenaro Salguero CMA on 01/29/24 08:57 UA pH 6.0 Last Edit by Jenaro Salguero CMA on 01/29/24 08:57 UA Blood 0 Robert/uL Last Edit by Jenaro Salguero CMA on 01/29/24 08:57 UA Specific Novice 1.015 Last Edit by Jenaro Salguero CMA on 01/29/24 08:57 UA Ketone Negative Last Edit by Jenaro Salguero CMA on 01/29/24 08:57 UA Bilirubin 0 mg/dL Last Edit by Jenaro Salguero CMA on 01/29/24 08:57 UA Glucose 0 mg/dL Last Edit by Jenaro Salguero CMA on 01/29/24 08:57 AMB Random Glucose (hemocue) AMB Random Glucose (hemocue) 146 mg/dL Last Edit by SID Phillips on 01/29/24 09:10 Results Reviewed Results Reviewed: Laboratory Last Values Urine pH (Auto) 6.0 01/29/24 08:56 Specific Novice (Auto) 1.015 01/29/24 08:56 Urine Protein (Auto) 0 mg/dL 01/29/24 08:56 Glucose (UA)(Auto) 0 mg/dL 01/29/24 08:56 Urine Ketones (Auto) Negative 01/29/24 08:56 Urine Blood (Auto) 0 Robert/uL 01/29/24 08:56 Urine Nitrite (Auto) Negative 01/29/24 08:56 Urine Bilirubin (Auto) 0 mg/dL 01/29/24 08:56 Urine Urobilinogen (Auto) 0.2 mg/dL 01/29/24 08:56 Leukocyte Esterase (Auto) 0 Gorge/uL 01/29/24 08:56 Assessment & Plan Assessment & Plan (1) Menopausal vaginal dryness: Code(s): N95.1 - Menopausal and female climacteric states Plan: Initiate Estrace, f/u with PCP PRN (2) Urinary frequency: Code(s): R35.0 - Frequency of micturition Plan: Pt educated to return to care as needed or if fever, worsening symptoms Orders: Orders AMB Urinalysis Automated Today Z13.9 - Encounter for screening, unspecified AMB Random Glucose (hemocue) Today Z13.9 - Encounter for screening, unspecified Medications: New estradiol 0.01%(0.1mg/gram) (Estrace) use twice weekly for 1-2 weeks, can increase to daily if no irritation. Continue daily use for 2 weeks, then use twice weekly. 0.5 grams vaginal 2XW 42.5 grams 0RF Coding Level of Care Code Est Pt Level 3 (01221) Diagnoses Menopausal vaginal dryness N95.1 Urinary frequency R35.0
[2024-01-29 08:47] VITALS: BP 118/80; PULSE 67; TEMP 36.9; O2SAT 98; BMI 37.4
== END 2024-01-29 09:33 | disposition home or self-care (01) ==
PROVIDERS: PCP Internal Medicine; Visit Provider Emergency Medicine
DX: N95.1 Menopausal and female climacteric states (principal); R35.0 Frequency of micturition
CPT/HCPCS: 81003; 82948; 99213

== ENCOUNTER 2024-04-23 11:10 | Outpatient (AMB) | payer OTHER, SELFPAY ==
--- NOTE | 2024-04-23 11:18 | A.OFFVIS_ITS ---
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 Allergies Lactose Allergy (Intermediate, Uncoded 01/29/24 08:47) stomach upset [facility] Medical History (Updated 03/22/24 @ 03:35 by Di Bae MD) History of primary hyperparathyroidism Hx of papillary thyroid carcinoma Menopausal vaginal dryness History of hyperparathyroidism Glenohumeral arthritis Acromioclavicular joint arthritis HTN (hypertension) NSTEMI (non-ST elevated myocardial infarction) Diabetic retinopathy screening Essential hypertension Osteopenia of left femoral neck Type 2 diabetes mellitus without complication, with no history of insulin use Atrial septal aneurysm Vitamin D deficiency Multinodular thyroid Jaki's disease Surgical History (Updated 03/22/24 @ 03:25 by Di Bae MD) History of total thyroidectomy History of parathyroidectomy Hx of colonoscopy Hx of colonoscopy History of cardiac catheterization (~05/2020) History of partial hysterectomy Hx of tubal ligation Family History Mother Diabetes Arthritis Breast cancer, Onset Age: 70 Father No problems noted. Social History Household Members: None Housing: House Alcohol intake: current Alcohol intake frequency: holidays/special occasions only Alcohol type: wine Patient Tobacco Use Status: Former Tobacco user e-Cigarette/Vaping Use: Never Used service: No Current occupational status: retired Cognitive needs: No Hearing needs: No Vision needs: Yes Female Reproductive History Menstrual Age of Menarche: 12 Coding
--- NOTE | 2024-04-23 11:19 | A.OFFVIS_ITS ---
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 Allergies Lactose Allergy (Intermediate, Uncoded 01/29/24 08:47) stomach upset [facility] Medical History (Updated 03/22/24 @ 03:35 by Di Bae MD) History of primary hyperparathyroidism Hx of papillary thyroid carcinoma Menopausal vaginal dryness History of hyperparathyroidism Glenohumeral arthritis Acromioclavicular joint arthritis HTN (hypertension) NSTEMI (non-ST elevated myocardial infarction) Diabetic retinopathy screening Essential hypertension Osteopenia of left femoral neck Type 2 diabetes mellitus without complication, with no history of insulin use Atrial septal aneurysm Vitamin D deficiency Multinodular thyroid Jaki's disease Surgical History (Updated 03/22/24 @ 03:25 by Di Bae MD) History of total thyroidectomy History of parathyroidectomy Hx of colonoscopy Hx of colonoscopy History of cardiac catheterization (~05/2020) History of partial hysterectomy Hx of tubal ligation Family History Mother Diabetes Arthritis Breast cancer, Onset Age: 70 Father No problems noted. Social History Household Members: None Housing: House Alcohol intake: current Alcohol intake frequency: holidays/special occasions only Alcohol type: wine Patient Tobacco Use Status: Former Tobacco user e-Cigarette/Vaping Use: Never Used service: No Current occupational status: retired Cognitive needs: No Hearing needs: No Vision needs: Yes Female Reproductive History Menstrual Age of Menarche: 12 Coding
[2024-04-23 11:20] VITALS: BP 126/70; BMI 39.0
--- NOTE | 2024-04-23 11:26 | A.OFFVIS_ITS ---
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 Fly Tier Required: No Allergies Lactose Allergy (Intermediate, Uncoded 04/23/24 11:27) stomach upset Medication List - Last Reconciled 04/23/24 by Ramona Buckley LPN amlodipine 10 mg PO DAILY atorvastatin 20 mg PO DAILY blood sugar diagnostic (FreeStyle Lite Strips) test blood sugar once a day calcium carbonate (Calcium 500) 500 mg PO DAILY cholecalciferol (vitamin D3) 50 mcg PO BEDTIME lancets (FreeStyle Lancets) Test blood sugar once a day levothyroxine 100 mcg PO DAILY metformin 500 mg PO BEDTIME metoprolol succinate ER 100 mg PO DAILY Is last menstrual period known: No Post menopausal: Yes Patient : No HPI Comments Details: She is a 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 She is doing well with concerns: ?cyst again under the left armpit, slightly tender this week had previous abscess and surgical removal of a prior cyst in the same area. Currently sexually active. Denies any vaginal dryness or irritation. Admits to not eating healthy diet, has some calcium, vitamin D supplements, not active with exercise. Last pap smear; 2019. Last mammogram; 2022. Colonoscopy is UTD. Denies any family history of ovarian or colon cancer. FH breast cancer-mother. Daughter 02/2024, cervical cancer complications, age 44. [facility] Medical History History of primary hyperparathyroidism Hx of papillary thyroid carcinoma Menopausal vaginal dryness History of hyperparathyroidism Glenohumeral arthritis Acromioclavicular joint arthritis HTN (hypertension) NSTEMI (non-ST elevated myocardial infarction) Diabetic retinopathy screening Essential hypertension Osteopenia of left femoral neck Type 2 diabetes mellitus without complication, with no history of insulin use Atrial septal aneurysm Vitamin D deficiency Multinodular thyroid Jaki's disease Surgical History History of total thyroidectomy History of parathyroidectomy Hx of colonoscopy Hx of colonoscopy History of cardiac catheterization (~05/2020) History of partial hysterectomy Hx of tubal ligation Family History (Updated 04/23/24 @ 12:04 by Jessica Kay CNM) Mother Diabetes Arthritis Breast cancer, Onset Age: 70 Father No problems noted. Daughter Cervical cancer Social History Household Members: None Housing: House Alcohol intake: current Alcohol intake frequency: holidays/special occasions only Alcohol type: wine Patient Tobacco Use Status: Former Tobacco user e-Cigarette/Vaping Use: Never Used service: No Current occupational status: retired Cognitive needs: No Hearing needs: No Vision needs: Yes Female Reproductive History Menstrual Age of Menarche: 12 control method: none Menopause type: natural Age of menopause: 50 Total pregnancies: 2 Full term: 11 Number of Living Children: 1 Date of last pap smear: 02/17/20 History of abnormal pap smear: No History of STI: No Date of Mammogram: 05/24/23 History of abnormal mammogram: Yes (yrs ago) Date of last Bone Density Screenin04/05/21 Review of Systems Const All systems reviewed & are unremarkable except as noted in HPI and below Reports as per HPI Eyes Reports no additional complaints ENT Reports no additional complaints Card Reports no additional complaints Resp Reports no additional complaints GI Reports as per HPI and Reports no additional complaints Reports as per HPI Musc Reports no additional complaints Skin/Breast Reports as per HPI Neuro Reports no additional complaints Psych Reports no additional complaints Endo Reports no additional complaints Urban/Lymph Reports no additional complaints Aller/Immun Reports no additional complaints Physical Exam Vital Signs: Last Vital Signs BP 126/70 04/23/24 11:20 BMI result Body Mass Index 39.0 Const General: cooperative, healthy appearing, no acute distress, well developed and alert Orientation/consciousness: patient oriented x3 HEENT Head: Yes normal to inspection Eyes General: appearance normal, both eyes and all related structures Neck Neck: Yes normal visual inspection Thyroid: Thyroid normal Chest Other: Left axilla superficial cystic possible mass old scar tissue slightly tender Chest palpation & inspection: normal inspection of the chest and other (no puckering, dimpling, peau de orange, retraction, discharge, masses) Breast/axilla inspection: normal inspection of the breasts Breast/axilla palpation: normal palpation of the breasts Resp Effort & Inspection: normal respiratory effort GI Inspection: Yes normal to inspection Palpation (GI): Soft to palpation Rectal Exam - Female: deferred General: Yes bladder normal to palpation External Female Exam: normal external appearance and normal appearance of the urethra Speculum Exam - Vagina: normal appearance of the vagina, normal palpation, normal vaginal discharge and vagina atrophic Speculum Exam - Cervix: normal appearance of the cervix and normal palpation Bimanual exam- vagina & uterus: normal bimanual exam, normal palpation, uterine size normal, bladder normal to palpation, normal palpation and non-tender Bimanual Exam- Adnexa, other: no masses Skin General skin exam: no rashes or lesions noted Rashes: no rashes Neuro General: patient oriented x3 Cognition (Neuro): normal cognition Extrem General: Yes normal to inspection Psych Attitude: cooperative Thought process: Normal thought process present Assessment & Plan Assessment & Plan (1) Encounter for well woman exam with routine gynecological exam: Code(s): Z01.419 - Encounter for gynecological examination (general) (routine) without abnormal findings Category: Medical Plan Discussed: Current recommendations for pap smears per ASCCP guidelines. Breast awareness, periodic self breast exams and yearly mammogram. Maintain a healthy lifestyle, well balanced diet including Calcium 1,200 mg and Vitamin D 600 IU daily, and routine exercise. Patient plans to go to urgent care to have the left axilla examined, advised warm compresses until appointment. Contact the office with any postmenopausal bleeding. Patient verbalizes understanding and agrees to the plan of care. She was given opportunity to ask questions and all questions were answered to the best of my ability. RTO in 1 year for annual chemical inspector exam. This note is constructed using voice recognition software. While every effort has been made to ensure accuracy, dressmaking teacher errors may have been included. Coding Level of Care Code Est Pt Prev Care 40-64y(76754) Diagnoses Encounter for well woman exam with routine gynecological exam Z01.419
[2024-04-23 11:31] VITALS: BMI 39.0
== END 2024-04-23 12:06 | disposition home or self-care (01) ==
LOC: HO.HWS 11:10
PROVIDERS: PCP Internal Medicine; Visit Provider Advanced Practice Midwife
DX: Z01.419 Encounter for gynecological examination (general) (routine) without abnormal findings (principal)
CPT/HCPCS: 99396

== ENCOUNTER → 2024-04-23 11:10 | Outpatient (BNVA) | payer OTHER, SELFPAY | PROVIDERS: PCP Internal Medicine; Visit Provider Advanced Practice Midwife | DX: Z01.419 Encounter for gynecological examination (general) (routine) without abnormal findings (principal); M85.80 Other specified disorders of bone density and structure, unspecified site; Z78.0 Asymptomatic menopausal state; Z80.3 Family history of malignant neoplasm of breast; Z80.49 Family history of malignant neoplasm of other genital organs; Z98.51 Tubal ligation status; Z90.710 Acquired absence of both cervix and uterus | CPT/HCPCS: 99396 ==

== ENCOUNTER 2024-04-30 07:23 | Outpatient (REF) | payer OTHER, SELFPAY ==
[2024-04-30 10:11] LABS: Estimated Average Glucose 146 mg/dL; Hemoglobin A1C 147.9841 umol/L; Hemoglobin A1c % 6.7 % (<6.0); Total Hemoglobin (HGBA1C) 2966.4826 umol/L
[2024-04-30 10:31] LABS: Alanine Aminotransferase 26 U/L (0-31); Anion Gap 14 (12-20); Aspartate Amino Transferase 30 U/L (5-31); Blood Urea Nitrogen 15 mg/dL (9-16); Calcium 8.7 mg/dL (8.4-10.2); Carbon Dioxide 25 mmol/L (22-29); Chloride 107 mmol/L (96-108); Cholesterol 161 mg/dL (<200); Estimated Glomerular Filt Rate 54; Glucose Fasting 130 mg/dL (60-99); HDL Cholesterol 56 mg/dL (>40); LDL Cholesterol Calculated 93 mg/dL (<100); Potassium 3.7 mmol/L (3.3-5.1); Sodium 142 mmol/L (135-145); Triglycerides 61 mg/dL (<150)
[2024-04-30 10:40] LABS: Free T4 (Free Thyroxine) 1.03 ng/dL (0.71-1.85); Thyroid Stimulating Hormone 10.98 uIU/mL (0.32-4.0); Vitamin D 25-OH Total 40.8 ng/mL (>30)
== END 2024-04-30 07:24 | disposition home or self-care (01) ==
LOC: HO.HMGCLDS 07:23
PROVIDERS: PCP Internal Medicine; Visit Provider Internal Medicine
DX: I10 Essential (primary) hypertension (principal); M85.852 Other specified disorders of bone density and structure, left thigh; E11.9 Type 2 diabetes mellitus without complications; E55.9 Vitamin D deficiency, unspecified; E06.3 Autoimmune thyroiditis; E04.2 Nontoxic multinodular goiter; Z86.39 Personal history of other endocrine, nutritional and metabolic disease
CPT/HCPCS: 36415; 80048; 80061; 82306; 83036; 84439; 84443; 84450; 84460

== ENCOUNTER 2024-05-05 11:30 | Outpatient (AMB) | payer MEDICARE, SELFPAY ==
[2024-05-05 11:50] VITALS: BP 108/78; PULSE 74; O2SAT 97; BMI 37.8
--- NOTE | 2024-05-05 11:50 | A.OFFPC_ITS ---
Vital Signs 05/05/24 11:50 Height 5 ft 4 in Weight 220 lb BMI 37.8 BP 108/78 Blood Pressure Location Rt brachial Position Sitting Pulse 74 Pulse Source Pulse Oximeter Pulse Oximetry (%) 97 Oxygen Delivery Method Room Air Intake Visit Reasons: 6M F/U Intake Note: Pt is here today for her 6mo. f/u Allergies Lactose Allergy (Intermediate, Uncoded 05/05/24 12:17) stomach upset Medication List - Last Reconciled 05/05/24 by Di Bae MD amlodipine 10 mg PO DAILY atorvastatin 20 mg PO DAILY blood sugar diagnostic (FreeStyle Lite Strips) test blood sugar once a day calcium carbonate (Calcium 500) 500 mg PO DAILY cholecalciferol (vitamin D3) 50 mcg PO BEDTIME lancets (FreeStyle Lancets) Test blood sugar once a day levothyroxine 100 mcg PO DAILY metformin 500 mg PO BEDTIME metoprolol succinate ER 100 mg PO DAILY Tobacco use date assessed: 05/05/24 Dental Screening Dental Screen Date: 05/05/24 Did you have a dental visit in the last 12 months?: Yes Did you have a dental problem in the last 6 months where you did not have access to dental care?: No Was dental information given to patient?: Patient has dentist HPI 6M F/U HPI Details 63 year old lady with past medical history significant for diabetes mellitus currently stable and controlled on metformin 500 mg at night with supper, with latest hemoglobin A1c at 6.7%. She has history of papillary thyroid carcinoma status post total thyroidectomy , currently on levothyroxine 100 mcg taken once a day in a.m. had right and left superior parathyroidectomy due to primary hyperparathyroidism last 10/2022, currently on Citracal. 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 History of primary hyperparathyroidism Menopausal vaginal dryness History of hyperparathyroidism Glenohumeral arthritis Acromioclavicular joint arthritis HTN (hypertension) NSTEMI (non-ST elevated myocardial infarction) Diabetic retinopathy screening Essential hypertension Osteopenia of left femoral neck Type 2 diabetes mellitus without complication, with no history of insulin use Atrial septal aneurysm Vitamin D deficiency Multinodular thyroid Jaki's disease Surgical History History of total thyroidectomy History of parathyroidectomy Hx of colonoscopy Hx of colonoscopy History of cardiac catheterization (~05/2020) History of partial hysterectomy Hx of tubal ligation Family History Mother Diabetes Arthritis Breast cancer, Onset Age: 70 Father No problems noted. Daughter Cervical cancer Social History Household Members: None Housing: House Alcohol intake: current Alcohol intake frequency: holidays/special occasions only Alcohol type: wine Patient Tobacco Use Status: Former Tobacco user e-Cigarette/Vaping Use: Never Used service: No Current occupational status: retired Cognitive needs: No Hearing needs: No Vision needs: Yes Female Reproductive History Menstrual Age of Menarche: 12 Questionnaire Thrive Questionnaire Date Thrive assessed: 05/03/24 I am a: Patient What is your living situation today?: I have a steady place to live Within the past 12 months, did the food you bought not last and you didn't have the money to get more?: Never true Within the past 12 months, did you worry whether your food would run out before you got money to buy more?: Never true Do you have trouble paying for medicines?: No Do you have trouble getting transportation to medical appointments?: No Do you have trouble paying your heating and electricity bill?: No Do you have trouble with day-to-day activities such as bathing, preparing meals, shopping, managing finances, etc.?: No Are you currently unemployed and looking for a job?: No Are you interested in more education?: No Please select the resources that you would like help with: None Currently or been in a relationship where the following occur: No concerns reported THRIVE Score: 0 AUDIT C Alcohol Use Questionnaire (AUDIT-C) 1. How often do you have a drink containing alcohol?: Monthly or less 2. How many drinks containing alcohol do you have on a typical day when you are drinking?: 1 or 2 3. How often do you have six or more drinks on one occasion?: Never Total Score: 1 BRENNAN-7 AMB Questionnaire BRENNAN-7 Date BRENNAN - 7 assessed: 11/07/23 Feeling nervous, anxious, or on edge: 0 = Not at all Not being able to stop or control worryin = Not at all Worrying too much about different things: 0 = Not at all Trouble relaxin = Not at all Being so restless that it is hard to sit still: 0 = Not at all Becoming easily annoyed or irritable: 0 = Not at all Feeling afraid as if something awful might happen: 0 = Not at all Total BRENNAN-7 score (0-4 normal; 5-9 mild; 10-14 moderate; 15-21 severe): 0 Source: Developed by Drs. Hiren Ragland, Deepa Durán, Anthony Reddy and colleagues, with an educational dania from [employer]. Review of Systems Const Reports no additional complaints Eyes Details: [facility] Reports no additional complaints ENT Reports no additional complaints Card Reports no additional complaints Resp Reports no additional complaints GI Reports as per HPI and Reports no additional complaints Reports as per HPI Musc Reports no additional complaints Skin/Breast Reports as per HPI Neuro Reports no additional complaints Psych Reports no additional complaints Endo Reports no additional complaints Urban/Lymph Reports no additional complaints Aller/Immun Reports no additional complaints Physical exam (Primary Care) Vital Signs: Last Vital Signs Pulse 74 05/05/24 11:50 BP 108/78 05/05/24 11:50 Pulse Ox 97 05/05/24 11:50 Oxygen Delivery Method Room Air 05/05/24 11:50 BMI result Body Mass Index 37.8 Tobacco/Smoking Status: Tobacco use Status Tobacco use date assessed 05/05/24 05/05/24 12:05 Patient Tobacco Use Status Former Tobacco user 05/05/24 11:50 e-Cigarette/Vaping Use Never Used 05/05/24 11:50 Thrive Assessment: Date of Thrive Assessment Date Thrive assessed 05/03/24 05/05/24 11:50 Currently or been in a relationship where the following occur: No concerns reported Const Other: Alert oriented x3, no acute distress noted ambulatory normal gait Orientation/consciousness: patient oriented x3 HENMT Head: Yes normocephalic Ears: external ears normal, TM's normal bilaterally and EAC's normal General nose exam: Normal external nose present Face and sinus: Yes face symmetric Mouth: Normal oral and palatal mucosa present, oropharynx normal and moist mucous membranes Eyes General: appearance normal, both eyes and all related structures Neck Other: healed sx scar anterior neck Neck: Yes full ROM, Yes no lymphadenopathy and Yes supple Chest Chest palpation & inspection: normal inspection of the chest Breast/axilla palpation: normal palpation of the breasts Resp Auscultation: clear to auscultation bilaterally Cardio Other: S1-S2 present regular rate and rhythm GI Auscultation: normal bowel sounds General: Yes no CVA tenderness Back/Spine/Pelvis Back: no CVA tenderness Skin General skin exam: no rashes or lesions noted Neuro General: patient oriented x3, gait normal, tone normal, Normal light touch and pain sensation, no focal motor deficits and CN's II-XI intact bilaterally Extrem General: Yes no joint enlargement, Yes no clubbing, cyanosis or edema and Yes normal gait Psych Appearance: grossly normal and well kempt Mental Status: mental status grossly normal Speech and movement: Normal speech and movement present Affect: normal affect Office Procedures Flu Questionnaire Does the patient have a severe egg allergy?: No Does the patient have severe life threatening allergies?: No Does the patient have a fever or illness today?: No Has the patient ever had Guillain-[place] Syndrome?: No Has the patient ever had any past reaction to a flu shot?: No Immunizations Fluarix Triv 4887-1456 (PF) 45 mcg (15 mcg x 3)/0.5 mL IM syringe Performing Provider: Di Bae MD Performing Location: [facility] Administered by: Nasrin Bender CMA on 05/05/24 12:53 Dose Route Admin Location Dispensed Lot Number Expiration Date [facility] Practice Consultant 0.5 mL IM Right Deltoid 0.5 mL [id number] 12/01/24 47547-331-81 [place] VIS Given Date VIS Provided VIS Publication Date 05/05/24 Single Vaccine 21 Eligibility Eligibility Date Funding Source Not [facility] Eligible 05/05/24 Private Results Reviewed Results Reviewed: Name: Jacki Conklin Age/Sex: 63/F : 1960 Unit#: [id number] Attend Dr: Di Bae MD Re04/30/24 Status: DEP REF Location: [id number] Disch: SPEC : [id number] SHAUNA: 04/30/24 STATUS: COMP REQ : [id number] RECD: 04/30/[address]: Di Bae MD COMP: 04/30/240 ENTERED: 04/30/24 [facility] DR: ORDERED: Met Prof Fast, AST, ALT, Lipid Panel, Vitamin D 25-OH, Free T4, TSH Test Result Flag Reference Sodium 142 135-145 mmol/L Potassium 3.7 3.3-5.1 mmol/L CL 107 96-108 mmol/L CO2 25 22-29 mmol/L Gap 14 12-20 BUN 15 9-16 mg/dL Creat 1.03 0.5-1.4 mg/dL eGFR 54 Chronic Kidney Disease: Estimated GFR < 60 mL/min/1.73m2 Severe Kidney Disease: Estimated GFR < 15 mL/min/1.73m2 FBS 130 H 60-99 mg/dL A fasting glucose of 126 mg/dl or greater on more than one occasion is considered diagnostic of diabetes. CA 8.7 8.4-10.2 mg/dL AST (GOT) 30 5-31 U/L ALT (GPT) 26 0-31 U/L Triglyceride 61 <150 mg/dL Desirable Triglyceride: less than 150 mg/dL Borderline High Triglyceride 150-199 mg/dL High Triglyceride: 200-499 mg/dL Very High Triglyceride: greater than or equal to 5OO mg/dL Cholesterol 161 <200 mg/dL Desirable Cholesterol: less than 200 mg/dL Borderline High Cholesterol: 200-239 mg/dL High Cholesterol: greater than 239 mg/dL LDL Calculated 93 <100 mg/dL Desirable LDL: less than 100 mg/dL Near Optimal/Above Optimal LDL: 110-129 mg/dL Borderline High LDL: 130-159 mg/dL High LDL: 160-189 mg/dL Very High LDL: greater than or equal to 190 mg/dL HDL 56 >40 mg/dL Desirable HDL: greater than 40 mg/dL Note: This HDL assay may give artificially low results in patients with liver disease. Vit D 25-OH Tot 40.8 >30 ng/mL Health Based Reference Values* < 20 ng/mL Deficient 20-30 ng/mL Insufficient > 30 ng/mL Sufficient *Ramila HAIR. N Engl J Med. 2007;357:266-280 Care must be taken in interpreting Vitamin D results from different laboratories and methodologies. Published data demonstrated that results from patients undergoing hemodialysis may show a negative bias when tested with various automated 25-OH vitamin D assays when compared to LC-MS/MS. When testing samples from patients whose predominant form of Vitamin D is Vitamin D2, such as patients receiving Vitamin D2 supplementation, results that are subtherapeutic should be confirmed with another method such as LC-MS/MS. Free T4 1.03 0.71-1.85 ng/dL TSH 3rd Gen. 10.98 H 0.32-4.0 uIU/mL Note: A sustained TSH level above 2.5 uIU/mL may warrant further investigation. 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 Essential hypertension I10 Osteopenia of left femoral neck M85.852 Hx of papillary thyroid carcinoma Z85.850 Assessment & Plan Assessment & Plan (1) Type 2 diabetes mellitus without complication, with no history of insulin use: Code(s): E11.9 - Type 2 diabetes mellitus without complications Category: Medical (2) History of primary hyperparathyroidism: Comment: s/p right and left superior parathyroidectomy for hypercalcemia due to primary hyperparathyroidism Code(s): Z86.39 - Personal history of other endocrine, nutritional and metabolic disease Category: Medical (3) 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: Code(s): E06.3 - Autoimmune thyroiditis Category: Medical (4) Essential hypertension: Code(s): I10 - Essential (primary) hypertension Category: Medical (5) Osteopenia of left femoral neck: Code(s): M85.852 - Other specified disorders of bone density and structure, left thigh Category: Medical (6) Hx of papillary thyroid carcinoma: Comment: s/p total thyroidectomy done by Dr Leigh 10/2022 Code(s): Z85.850 - Personal history of malignant neoplasm of thyroid Category: Medical Plan - hemoglobin A1c at 6.7%, will continue on metformin 500 mg at night with supper, reinforced importance of following recommended diet and getting regular exercise as well as getting yearly diabetes retinopathy screening and referred to podiatry for her diabetic foot exam yearly. Flu vaccine given today - Hypertension: Maintain current antihypertensive therapy and monitor blood pres sure. - Hypercholesterolemia: Continue cholesterol management; lipid levels currently within target range. - Jaki?s Thyroiditis/history of papillary thyroid carcinoma: Monitor thyroid function; referral to endocrinology for further evaluation of thyroid function. - Hyperparathyroidism: Continue monitoring calcium levels; refer to endocrinology for follow-up. - Preventive Care: Schedule bone density scan for osteoporosis monitoring; annual flu shot administered; shingles and pneumonia vaccines are due. - Podiatry: Refer to Dr. Rodo Steen for annual foot examination due to diabetes-related foot tingling. Patient was informed and verbally consented to the use of an ambient scribe for clinic note documentation during this visit. Orders: Orders Influenza [id number] Immunization 05/05/24 Z23 - Encounter for immunization Referrals Podiatry Referral E11.9 - Type 2 diabetes mellitus without complications Endocrinology Referral E06.3 - Autoimmune thyroiditis, Z85.850 - Personal history of malignant neoplasm of thyroid, Z86.39 - Personal history of other endocrine, nutritional and metabolic disease
== END 2024-05-05 13:49 | disposition home or self-care (01) ==
PROVIDERS: PCP Internal Medicine; Visit Provider Internal Medicine
DX: E11.9 Type 2 diabetes mellitus without complications (principal); Z86.39 Personal history of other endocrine, nutritional and metabolic disease; E06.3 Autoimmune thyroiditis; I10 Essential (primary) hypertension; M85.852 Other specified disorders of bone density and structure, left thigh; Z85.850 Personal history of malignant neoplasm of thyroid

== ENCOUNTER → 2024-05-05 11:30 | Outpatient (BNVA) | payer MEDICARE, SELFPAY | PROVIDERS: PCP Internal Medicine; Visit Provider Internal Medicine | DX: Z23 Encounter for immunization (principal); E11.9 Type 2 diabetes mellitus without complications; E06.3 Autoimmune thyroiditis; I10 Essential (primary) hypertension; M85.852 Other specified disorders of bone density and structure, left thigh; Z85.850 Personal history of malignant neoplasm of thyroid; Z86.39 Personal history of other endocrine, nutritional and metabolic disease | CPT/HCPCS: 90471; 90656; 99212 ==

== ENCOUNTER 2024-05-27 09:37 | Outpatient (AMB) | payer MEDICARE, SELFPAY ==
[2024-05-27 09:39] VITALS: BP 112/70; PULSE 74; BMI 38.3
--- NOTE | 2024-05-27 09:39 | MHC.OFFVIS ---
Vital Signs 05/27/24 09:39 Height 5 ft 4 in Weight 223 lb 5.252 oz BMI 38.3 BP 112/70 Blood Pressure Location Lt brachial Position Sitting Pulse 74 Pulse Source Pulse Oximeter Intake Visit Reasons: Personal history of malignant neoplasm of thyroid Intake Note: New patient present today for personal history of malignant neoplasm of thyroid. 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 Required: No Accompanied by: Self / Same As Patient Allergies Lactose Allergy (Intermediate, Uncoded 05/27/24 09:44) stomach upset Medication List - Last Reconciled 05/27/24 by Danielle Newton MD amlodipine 10 mg PO DAILY atorvastatin 20 mg PO DAILY blood sugar diagnostic (FreeStyle Lite Strips) test blood sugar once a day cholecalciferol (vitamin D3) 50 mcg PO BEDTIME lancets (FreeStyle Lancets) Test blood sugar once a day levothyroxine 100 mcg PO DAILY metformin 500 mg PO BEDTIME metoprolol succinate ER 100 mg PO DAILY HPI Comments Details: 64-year-old female coming in today for follow up of history of hyperparathyroidism. She was previously seeing Dr. Rodriguez, last seen in our office in 2021. History of hyperparathyroidism status post right superior and left superior parathyroidectomy 10/24/2022 HPI from prior visits First noted to have high Calcium in September of 2018. She then had labs assessed 12/30/2019 with a Total Calcium of 10.2, PTH of 68 and iCal of 59. No Vitamin D or Albumin was assessed. Those were checked 11/05/2018 and Albumin was 4.3 with Vitamin D 25.3. 24 hour urine was assessed at that time and was WNL. Labs repeated 02/18/2020 with Calcium 10.5, albumin 4.0, iCal 6.0, PTH 60 and Vitamin D 37.1. 24 hour urine Calcium was 160 and was an adequate collection. This was thought to be consistent with primary hyperparathyroidism. DEXA reveals Osteopenia, but no evidence of Osteoporosis. US was unable to localize an abnormal parathyroid gland. Labs were repeated 07/08/2020 with Calcium 10.4, Albumin 4.1, PTH 77 and Vitamin D 41. She does complain of significant constipation, body aches as well as polyuria. Takes 2000 IU of Vitamin D daily. Kidney stones: Denies Osteoporosis: Osteopenia of the hip Family history of high calcium or kidney stones: Denies Interval history Parathyroidectomy with Dr. 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 Intraop PTH dropped from 97 to 30 and then 16 pg/ml She is on vitamin-D 2000 units daily. Not on any calcium supplements. Denies any recent fractures. She is scheduled for a bone density scan on Sunday. Hypothyroidism Jaki's thyroiditis She also has Hypothyroidism and is currently using Levothyroxine 100 mcg PO daily. She had a thyroid US in 2019 which revealed multiple nodules. She presented 03/04/2020 for US guided FNA of these nodules, but was found to have a chandra-gland and only pseudonodules, no true nodules. No FNA was performed. Most recently labs from 04/30/2024 showed elevated TSH of 10.98, normal free T4 of 1.03. She does report some fatigue, no other symptoms of hyperthyroidism or hypothyroidism. Physical exam General: sitting comfortably in no acute distress HEENT: normocephalic/atraumatic, EOM intact, moist oral mucosa Neck: supple, symmetrical Cardiac: normal heart sounds Pulm: normal breath sounds B/L, no added breath sounds Abd: not distended, no tenderness Extremities: no edema, no signs of myxedema Imaging: Thyroid US: 01/14/2020: Right Thyroid Lobe: 3.8 x 2.0 x 1.7 cm, volume 6.8 mL. Previously 3.9 x 2.0 x 1.8 cm, volume 7.3 mL. Parenchyma: The gland echotexture is heterogeneous. Thyroid vascularity is normal. Left Thyroid Lobe: 3.6 x 1.4 x 1.7 cm, volume 4.5 mL. Previously 3.7 x 1.4 x 2.0 cm, volume 5.4 mL. Parenchyma: The gland echotexture is heterogeneous. Thyroid vascularity is normal. Isthmus: 0.3 cm in maximum AP dimension. Previously 0.3 cm. RIGHT THYROID LOBE: There is 1 nodule seen. 1. Location: Mid pole. Size: 0.9 x 0.7 x 0.8 cm. Previous: Not documented. Nodule characteristics: Simple colloid cyst with smooth margins and no internal vascularity or calcifications. ISTHMUS: No nodules. LEFT THYROID LOBE: There are 2 nodules seen. 1. Location: Mid pole. Size: 1.1 x 0.7 x 1.0 cm. Previous: 1.0 x 0.7 x 1.0 cm. Nodule characteristics: Heterogeneous in echotexture with smooth margins. No calcification. There is some intranodular blood flow present. 2. Location: Mid pole. Size: 0.8 x 0.4 x 0.5 cm. Previous: Not documented. Nodule characteristics: Heterogeneous and hypoechoic with smooth margins. No calcification. There is intranodular blood flow. NODES: No lymphadenopathy is seen in the tissue surrounding the thyroid gland. DEXA 06/10/2020: FINDINGS: AP SPINE L1-L4: Current: BMD 1.182 g/cm2, Z-score -0.6, T-score 0.0, normal, 1.9% increase from baseline (<5% change is not significant). Baseline: BMD 1.160 g/cm2. LEFT FEMUR, NECK: Current: BMD 0.889 g/cm2, Z-score -1.5, T-score -1.1, osteopenia. Baseline: BMD 0.870 g/cm2. LEFT FEMUR, TOTAL: Current: BMD 1.056 g/cm2, Z-score -0.4, T-score 0.4, normal, 4.6% increase from baseline (<5% change is not significant). Baseline: BMD 1.010 g/cm2. LEFT FOREARM RADIUS 33%: BMD 0.851 g/cm2, Z-score 0.0, T-score -0.3, normal. 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 History of primary hyperparathyroidism Menopausal vaginal dryness History of hyperparathyroidism Glenohumeral arthritis Acromioclavicular joint arthritis HTN (hypertension) NSTEMI (non-ST elevated myocardial infarction) Diabetic retinopathy screening Essential hypertension Osteopenia of left femoral neck Type 2 diabetes mellitus without complication, with no history of insulin use Atrial septal aneurysm Vitamin D deficiency Multinodular thyroid Jaki's disease Surgical History History of total thyroidectomy History of parathyroidectomy Hx of colonoscopy Hx of colonoscopy History of cardiac catheterization (~05/2020) History of partial hysterectomy Hx of tubal ligation Family History Mother Diabetes Arthritis Breast cancer, Onset Age: 70 Father No problems noted. Daughter Cervical cancer Social History Household Members: None Housing: House Alcohol intake: current Alcohol intake frequency: holidays/special occasions only Alcohol type: wine Patient Tobacco Use Status: Former Tobacco user e-Cigarette/Vaping Use: Never Used service: No Current occupational status: retired Cognitive needs: No Hearing needs: No Vision needs: Yes Female Reproductive History Menstrual Age of Menarche: 12 Physical Exam Vital Signs: Last Vital Signs Pulse 74 05/27/24 09:39 BP 112/70 05/27/24 09:39 BMI result Body Mass Index 38.3 Assessment & Plan Assessment & Plan (1) History of primary hyperparathyroidism: Comment: s/p right and left superior parathyroidectomy for hypercalcemia due to primary hyperparathyroidism Code(s): Z86.39 - Personal history of other endocrine, nutritional and metabolic disease Category: Medical Plan: 64-year-old female with past medical history significant for primary hyperparathyroidism status post left superior and right superior parathyroidectomy with Dr. 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 I will repeat her calcium level with a an albumin. On bone density from 2020 she was noted to have osteopenia of the hip with a T-score of-1.1, normal bone density of the spine, forearm. She is scheduled for a bone density on Sunday, I have added forearm to her order. 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 She is currently on levothyroxine 100 mcg daily. Most recent labs from April 2024 showed TSH elevated at 10, free T4 normal. I will repeat her labs. Plan: -ordered TSH, free T4 -we will communicate results with her in order to adjust levothyroxine -continue levothyroxine 100 mcg daily till I get her results Plan I spent 30 minutes in reviewing the record, seeing the patient and documenting in the medical record. Orders: Orders Albumin Level Today Z86.39 - Personal history of other endocrine, nutritional and metabolic disease Calcium Today Z86.39 - Personal history of other endocrine, nutritional and metabolic disease Phosphorus Today Z86.39 - Personal history of other endocrine, nutritional and metabolic disease Magnesium Today Z86.39 - Personal history of other endocrine, nutritional and metabolic disease Thyroid Stimulating Hormone Today Z86.39 - Personal history of other endocrine, nutritional and metabolic disease Basic Metabolic Panel Today Z86.39 - Personal history of other endocrine, nutritional and metabolic disease XR DEXA appendicular skeleton Today Z86.39 - Personal history of other endocrine, nutritional and metabolic disease Parathyroid Hormone Intact Today Z86.39 - Personal history of other endocrine, nutritional and metabolic disease Free T4 (Free Thyroxine) Today Z86.39 - Personal history of other endocrine, nutritional and metabolic disease Patient Instructions: Do bone density I will see you back in 6 weeks to discuss results Make sure they do your forearm Continue vitamin D 2000 units daily Do blood work today Continue levothyroine 100 mcg daily for now , i will reach out with results to let you know dose change Coding Level of Care Code Est Pt Level 4 (79679) Diagnoses History of primary hyperparathyroidism Z86.39 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
== END 2024-05-27 10:23 | disposition home or self-care (01) ==
PROVIDERS: PCP Internal Medicine; Visit Provider Student in an Organized Health Care Education/Training Program
DX: Z86.39 Personal history of other endocrine, nutritional and metabolic disease (principal); E06.3 Autoimmune thyroiditis
CPT/HCPCS: 99214

== ENCOUNTER → 2024-05-27 09:37 | Outpatient (BNVA) | payer MEDICARE, SELFPAY | PROVIDERS: PCP Internal Medicine; Visit Provider Student in an Organized Health Care Education/Training Program | DX: E06.3 Autoimmune thyroiditis (principal); Z85.850 Personal history of malignant neoplasm of thyroid | CPT/HCPCS: 99212 ==

== ENCOUNTER 2024-05-27 10:30 | Outpatient (REF) | payer MEDICARE, SELFPAY ==
[2024-05-27 12:11] LABS: Albumin Level 4.1 g/dL (3.5-5.0); Anion Gap 12 (12-20); Blood Urea Nitrogen 11 mg/dL (9-16); Calcium 9.1 mg/dL (8.4-10.2); Carbon Dioxide 28 mmol/L (22-29); Chloride 103 mmol/L (96-108); Estimated Glomerular Filt Rate 56; Glucose Random 111 mg/dL (60-115); Magnesium 2.1 mg/dL (1.6-2.6); Parathyroid Hormone Intact 86.5 pg/mL (8.7-77.1); Phosphorus 3.6 mg/dL (2.7-4.5); Potassium 3.7 mmol/L (3.3-5.1); Sodium 139 mmol/L (135-145)
[2024-05-27 12:23] LABS: Free T4 (Free Thyroxine) 0.99 ng/dL (0.71-1.85); Thyroid Stimulating Hormone 8.76 uIU/mL (0.32-4.0)
== END 2024-05-27 10:31 | disposition home or self-care (01) ==
LOC: HO.10HDL 10:30
PROVIDERS: Visit Provider Student in an Organized Health Care Education/Training Program
DX: Z86.39 Personal history of other endocrine, nutritional and metabolic disease (principal)
CPT/HCPCS: 36415; 80048; 82040; 83735; 83970; 84100; 84439; 84443

== ENCOUNTER → 2024-05-30 09:30 | Outpatient (BNV) | payer MEDICARE, SELFPAY | PROVIDERS: PCP Internal Medicine; Visit Provider Internal Medicine | DX: Z12.31 Encounter for screening mammogram for malignant neoplasm of breast (principal) | CPT/HCPCS: 77063; 77067 ==

== ENCOUNTER 2024-05-30 09:32 | Outpatient (REF) | payer MEDICARE, SELFPAY ==
--- NOTE | ~2024-05-30 | MM_ITS ---
EXAMINATION: MM SCREENING DIGITAL BREAST TOMOSYNTHESIS, BILATERAL CLINICAL INFORMATION: Screening. Asymptomatic. COMPARISON: Mammography: Comparison is made with available priors TECHNIQUE: Digital breast mammography with tomosynthesis is performed in both the craniocaudal and mediolateral oblique views along with computer-aided detection (CAD). FINDINGS: There are scattered areas of fibroglandular density (ACR BI-RADS breast composition Category b). Superficial skin lesion superior left breast posterior depth on MLO view stable dating back to 2019. There are no significant masses, abnormal calcifications, or other abnormalities. MM/MM tomosynthesis screening BI IMPRESSION: No mammographic evidence of malignancy. ASSESSMENT: BI-RADS BI-RADS 2 - Benign Findings RECOMMENDATION: Routine annual mammography screening. 1 year F/U This examination should not preclude the clinical evaluation of a suspicious palpable abnormality. This patient's information was entered into a reminder system with a target due date for their next mammogram. Electronically signed by: Amber Cabezas DO 06/11/2024 11:54 AM REBA
--- NOTE | ~2024-05-30 | MM_ITS ---
EXAMINATION: BONE DENSITOMETRY CLINICAL INDICATION: Personal history of other endocrine, nutritional and metabolic disorder. COMPARISON: Previous BD dated 06/10/2020 and baseline BD dated 09/19/2018. TECHNIQUE: Using a AdexLink DXA System (software version: 13.1) manufactured by [employer], dual-energy x-ray absorptiometry was performed of the lumbar spine, left hip, and left forearm radius 33%. The images are of good technical quality. Summary results are attached. FINDINGS: LEFT FEMUR, NECK: Current: BMD 0.895 g/cm2, Z-score -1.2, T-score -1.0, normal. Prior: BMD 0.889 g/cm2. Baseline: BMD 0.870 g/cm2. LEFT FEMUR, TOTAL: Current: BMD 1.046 g/cm2, Z-score -0.3, T-score 0.3, normal, 0.9% decrease from previous, 3.6% increase from baseline (<5% change is not significant). Prior: BMD 1.056 g/cm2. Baseline: BMD 1.010 g/cm2. AP SPINE L1-L4 (excluding L3): The data of L1-L4 has been changed to exclude the L3 vertebral body, because at this level may cause overestimation of lumbar spine density. Current: BMD 1.062 g/cm2, Z-score -1.2, T-score -0.9, normal, 6.6% decrease from previous, 5.2% decrease from baseline (<5% change is not significant). Prior: BMD 1.137 g/cm2. Baseline: BMD 1.120 g/cm2. LEFT FOREARM RADIUS 33%: BMD 0.746 g/cm2, Z-score -0.8, T-score -1.5, osteopenia, 12.3% decrease from baseline (<5% change is not significant). Baseline 06/10/2020: BMD 0.851 g/cm2. IDENTIFIED RISK FACTORS: Menopause, hysterectomy, hyperparathyroidism, bilateral oophorectomy. HISTORY OF FRACTURE: None listed. MEDICATIONS: Vitamin D. MM/XR DEXA appendicular skeleton IMPRESSION: 1. DIAGNOSIS: Osteopenia based on the lowest T-score value of -1.5 in the forearm radius 33% applying World Health Organization criteria. 2. 10-YEAR FRACTURE RISK PREDICTION, FRAX: Major osteoporotic fracture (clinical spine, forearm, hip or shoulder) 3.2%. Hip fracture 0.2%. 3. Treatment Recommendations: NOF guidelines recommend consideration for treatment in postmenopausal women and men age 50 and older presenting with the following: -A hip or vertebral (clinical or morphometric) fracture. -T-score less than or equal to -2.5 at the femoral neck or spine after appropriate evaluation to exclude secondary causes. -Low bone mass at the hip or spine and a 10-year fracture probability by FRAX of greater than or equal to 3% for hip fracture or greater than or equal to 20% for major osteoporotic fracture based on the [place] adapted WHO algorithm. 4. Other Recommendations: All treatment decisions require clinical judgment and consideration of individual patient factors, including patient preferences, comorbidities, previous drug use, risk factors not captured in the FRAX model (e.g. frailty, falls, vitamin D deficiency, increased bone turnover, interval significant decline in bone density) and possible under or overestimation of fracture risk by FRAX. Additional medical evaluation for secondary cause of low bone mineral density may be appropriate. FUTURE SCAN RECOMMENDATION: People with diagnosed cases of osteoporosis or at high risk for fracture should have regular bone mineral density tests. For patients eligible for Medicare, routine testing is allowed once every 2 years. The testing frequency can be increased to one year for patients who have rapidly progressing disease, those who are receiving or discontinuing medical therapy to restore bone mass, or have additional risk factors. Electronically signed by: Alessio Lynne MD 05/30/2024 02:36 PM RE[facility]
== END 2024-05-30 09:33 | disposition home or self-care (01) ==
LOC: HO.MAMMO 09:32
PROVIDERS: PCP Internal Medicine; Visit Provider Internal Medicine
DX: M85.852 Other specified disorders of bone density and structure, left thigh (principal); Z78.0 Asymptomatic menopausal state; Z86.39 Personal history of other endocrine, nutritional and metabolic disease; Z12.31 Encounter for screening mammogram for malignant neoplasm of breast
CPT/HCPCS: 77063; 77067; 77081

== ENCOUNTER 2024-08-04 10:56 | Outpatient (AMB) | payer MEDICARE, SELFPAY ==
[2024-08-04 11:00] VITALS: BP 122/84; PULSE 71; TEMP 37.2; O2SAT 99; BMI 38.1
--- NOTE | 2024-08-04 11:00 | MHC.OFFVIS ---
Vital Signs 08/04/24 11:00 Height 5 ft 4 in Weight 221 lb 12.56 oz BMI 38.1 BP 122/84 Blood Pressure Location Lt brachial Position Sitting Pulse 71 Pulse Source Pulse Oximeter Temp 99 F Pulse Oximetry (%) 99 Oxygen Delivery Method Room Air Intake Visit Reasons: Hyperparathyroidism Intake Note: Patient present today for Hyperparathyroidism office visit. 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 Accompanied by: Self / Same As Patient Allergies Lactose Allergy (Intermediate, Uncoded 08/04/24 11:05) stomach upset Medication List - Last Reconciled 08/04/24 by Danielle Newton MD amlodipine 10 mg PO DAILY atorvastatin 20 mg PO DAILY blood sugar diagnostic (FreeStyle Lite Strips) test blood sugar once a day cholecalciferol (vitamin D3) 50 mcg PO BEDTIME lancets (FreeStyle Lancets) Test blood sugar once a day levothyroxine 112 mcg PO DAILY metformin 500 mg PO BEDTIME metoprolol succinate ER 100 mg PO DAILY HPI Comments Details: 64-year-old female coming in today for follow up of history of hyperparathyroidism. History of hyperparathyroidism status post right superior and left superior parathyroidectomy 10/24/2022 HPI from prior visits First noted to have high Calcium in September of 2018. She then had labs assessed 12/30/2019 with a Total Calcium of 10.2, PTH of 68 and iCal of 59. No Vitamin D or Albumin was assessed. Those were checked 11/05/2018 and Albumin was 4.3 with Vitamin D 25.3. 24 hour urine was assessed at that time and was WNL. Labs repeated 02/18/2020 with Calcium 10.5, albumin 4.0, iCal 6.0, PTH 60 and Vitamin D 37.1. 24 hour urine Calcium was 160 and was an adequate collection. This was thought to be consistent with primary hyperparathyroidism. DEXA reveals Osteopenia, but no evidence of Osteoporosis. US was unable to localize an abnormal parathyroid gland. Labs were repeated 07/08/2020 with Calcium 10.4, Albumin 4.1, PTH 77 and Vitamin D 41. She does complain of significant constipation, body aches as well as polyuria. Takes 2000 IU of Vitamin D daily. Kidney stones: Denies Osteoporosis: Osteopenia of the hip Family history of high calcium or kidney stones: Denies Parathyroidectomy with Dr. 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 Intraop PTH dropped from 97 to 30 and then 16 pg/ml She is on vitamin-D 2000 units daily. Not on any calcium supplements. Denies any recent fractures. interval history 05/30/2024: DEXA scan showed lumbar spine T-score of -0.9, with a 6% decrease from previous bone density in 2020. Left femoral neck T-score -1 which is these consistent with normal bone density, left femoral total T-score 0.3 with 0.9% decrease from previous, which is also consistent with normal bone density at the hip which has remained stable. Left forearm T-score-1.5 consistent with osteopenia with a 12% decrease from previous in 2020. Most recent blood work from May 2024 showed normal calcium, vitamin-D was at 40 from May 2024. Normal kidney function. PTH is elevated at 86. vitamin-D 2000 units daily Cheese here and there No fractures Hypothyroidism Jaki's thyroiditis She also has Hypothyroidism and is currently using Levothyroxine 100 mcg PO daily. She had a thyroid US in 2019 which revealed multiple nodules. She presented 03/04/2020 for US guided FNA of these nodules, but was found to have a chandra-gland and only pseudonodules, no true nodules. No FNA was performed. Most recently labs from 04/30/2024 showed elevated TSH of 10.98, normal free T4 of 1.03. She does report some fatigue, no other symptoms of hyperthyroidism or hypothyroidism. Interval history 05/27/2024: Blood work showed TSH elevated at 8.76, with normal free T4. Dose of levothyroxine increased to 112 mcg daily. Blood work not repeated. Physical exam General: sitting comfortably in no acute distress HEENT: normocephalic/atraumatic, EOM intact, moist oral mucosa Neck: supple, symmetrical Cardiac: normal heart sounds Pulm: normal breath sounds B/L, no added breath sounds Abd: not distended, no tenderness Extremities: no edema, no signs of myxedema Imaging: BONE DENSITOMETRY 05/30/24 CLINICAL INDICATION: Personal history of other endocrine, nutritional and metabolic disorder. COMPARISON: Previous BD dated 06/10/2020 and baseline BD dated 09/19/2018. TECHNIQUE: Using a [employer] DXA System (software version: 13.1) manufactured by [employer], dual-energy x-ray absorptiometry was performed of the lumbar spine, left hip, and left forearm radius 33%. The images are of good technical quality. Summary results are attached. FINDINGS: LEFT FEMUR, NECK: Current: BMD 0.895 g/cm2, Z-score -1.2, T-score -1.0, normal. Prior: BMD 0.889 g/cm2. Baseline: BMD 0.870 g/cm2. LEFT FEMUR, TOTAL: Current: BMD 1.046 g/cm2, Z-score -0.3, T-score 0.3, normal, 0.9% decrease from previous, 3.6% increase from baseline (<5% change is not significant). Prior: BMD 1.056 g/cm2. Baseline: BMD 1.010 g/cm2. AP SPINE L1-L4 (excluding L3): The data of L1-L4 has been changed to exclude the L3 vertebral body, because at this level may cause overestimation of lumbar spine density. Current: BMD 1.062 g/cm2, Z-score -1.2, T-score -0.9, normal, 6.6% decrease from previous, 5.2% decrease from baseline (<5% change is not significant). Prior: BMD 1.137 g/cm2. Baseline: BMD 1.120 g/cm2. LEFT FOREARM RADIUS 33%: BMD 0.746 g/cm2, Z-score -0.8, T-score -1.5, osteopenia, 12.3% decrease from baseline (<5% change is not significant). Baseline 06/10/2020: BMD 0.851 g/cm2. IDENTIFIED RISK FACTORS: Menopause, hysterectomy, hyperparathyroidism, bilateral oophorectomy. HISTORY OF FRACTURE: None listed. MEDICATIONS: Vitamin D. MM/XR DEXA appendicular skeleton IMPRESSION: 1. DIAGNOSIS: Osteopenia based on the lowest T-score value of -1.5 in the forearm radius 33% applying World Health Organization criteria. 2. 10-YEAR FRACTURE RISK PREDICTION, FRAX: Major osteoporotic fracture (clinical spine, forearm, hip or shoulder) 3.2%. Hip fracture 0.2%. Thyroid US: 01/14/2020: Right Thyroid Lobe: 3.8 x 2.0 x 1.7 cm, volume 6.8 mL. Previously 3.9 x 2.0 x 1.8 cm, volume 7.3 mL. Parenchyma: The gland echotexture is heterogeneous. Thyroid vascularity is normal. Left Thyroid Lobe: 3.6 x 1.4 x 1.7 cm, volume 4.5 mL. Previously 3.7 x 1.4 x 2.0 cm, volume 5.4 mL. Parenchyma: The gland echotexture is heterogeneous. Thyroid vascularity is normal. Isthmus: 0.3 cm in maximum AP dimension. Previously 0.3 cm. RIGHT THYROID LOBE: There is 1 nodule seen. 1. Location: Mid pole. Size: 0.9 x 0.7 x 0.8 cm. Previous: Not documented. Nodule characteristics: Simple colloid cyst with smooth margins and no internal vascularity or calcifications. ISTHMUS: No nodules. LEFT THYROID LOBE: There are 2 nodules seen. 1. Location: Mid pole. Size: 1.1 x 0.7 x 1.0 cm. Previous: 1.0 x 0.7 x 1.0 cm. Nodule characteristics: Heterogeneous in echotexture with smooth margins. No calcification. There is some intranodular blood flow present. 2. Location: Mid pole. Size: 0.8 x 0.4 x 0.5 cm. Previous: Not documented. Nodule characteristics: Heterogeneous and hypoechoic with smooth margins. No calcification. There is intranodular blood flow. NODES: No lymphadenopathy is seen in the tissue surrounding the thyroid gland. DEXA 06/10/2020: FINDINGS: AP SPINE L1-L4: Current: BMD 1.182 g/cm2, Z-score -0.6, T-score 0.0, normal, 1.9% increase from baseline (<5% change is not significant). Baseline: BMD 1.160 g/cm2. LEFT FEMUR, NECK: Current: BMD 0.889 g/cm2, Z-score -1.5, T-score -1.1, osteopenia. Baseline: BMD 0.870 g/cm2. LEFT FEMUR, TOTAL: Current: BMD 1.056 g/cm2, Z-score -0.4, T-score 0.4, normal, 4.6% increase from baseline (<5% change is not significant). Baseline: BMD 1.010 g/cm2. LEFT FOREARM RADIUS 33%: BMD 0.851 g/cm2, Z-score 0.0, T-score -0.3, normal. Labs: Laboratory Tests 01/07/22 01/07/22 10:39 10:39 Creatinine 1.06 Estimated GFR 53 Albumin 4.2 25-OH Vitamin D Total 44.5 TSH 2.41 Free T4 1.15 PTH Intact 85 H Calcium (PTH Intact) 10.5 H Laboratory Tests 04/30/24 07:27 Creatinine 1.03 Estimated GFR 54 Calcium 8.7 25-OH Vitamin D Total 40.8 TSH 10.98 H Free T4 1.03 Laboratory Tests 04/30/24 05/27/24 07:27 10:34 Creatinine 0.99 Estimated GFR 56 Calcium 9.1 Phosphorus 3.6 Magnesium 2.1 Albumin 4.1 25-OH Vitamin D Total 40.8 TSH 8.76 H Free T4 0.99 PTH Intact 86.5 H [facility] Medical History (Updated 05/27/24 @ 10:17 by Danielle Nweton MD) 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 History of primary hyperparathyroidism Menopausal vaginal dryness History of hyperparathyroidism Glenohumeral arthritis Acromioclavicular joint arthritis HTN (hypertension) NSTEMI (non-ST elevated myocardial infarction) Diabetic retinopathy screening Essential hypertension Osteopenia of left femoral neck Type 2 diabetes mellitus without complication, with no history of insulin use Atrial septal aneurysm Vitamin D deficiency Multinodular thyroid Jaki's disease Surgical History History of total thyroidectomy History of parathyroidectomy Hx of colonoscopy Hx of colonoscopy History of cardiac catheterization (~05/2020) History of partial hysterectomy Hx of tubal ligation Family History Mother Diabetes Arthritis Breast cancer, Onset Age: 70 Father No problems noted. Daughter Cervical cancer Social History Household Members: None Housing: House Alcohol intake: current Alcohol intake frequency: holidays/special occasions only Alcohol type: wine Patient Tobacco Use Status: Former Tobacco user e-Cigarette/Vaping Use: Never Used service: No Current occupational status: retired Cognitive needs: No Hearing needs: No Vision needs: Yes Female Reproductive History Menstrual Age of Menarche: 12 Physical Exam Vital Signs: Last Vital Signs Temp 99 F 08/04/24 11:00 Pulse 71 08/04/24 11:00 BP 122/84 08/04/24 11:00 Pulse Ox 99 08/04/24 11:00 Oxygen Delivery Method Room Air 08/04/24 11:00 BMI result Body Mass Index 38.1 Assessment & Plan Assessment & Plan (1) History of primary hyperparathyroidism: Comment: s/p right and left superior parathyroidectomy for hypercalcemia due to primary hyperparathyroidism Code(s): Z86.39 - Personal history of other endocrine, nutritional and metabolic disease Category: Medical Plan: 64-year-old female with past medical history significant for primary hyperparathyroidism status post left superior and right superior parathyroidectomy with Dr. 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 Most recent labs from May 2024 showed normal calcium and albumin level, PTH was mildly elevated at 86.5, vitamin-D level from April 2024 was at 40, patient continues to take vitamin-D 2000 units daily.05/30/2024: DEXA scan showed lumbar spine T-score of -0.9, with a 6% decrease from previous bone density in 2020. Left femoral neck T-score -1 which is these consistent with normal bone density, left femoral total T-score 0.3 with 0.9% decrease from previous, which is also consistent with normal bone density at the hip which has remained stable. Left forearm T-score-1.5 consistent with osteopenia with a 12% decrease from previous in 2020. FRAX score does not meet criteria for treatment. I will keep an eye on her calcium and PTH levels to monitor for recurrence. 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 She is currently on levothyroxine 112 mcg daily. 05/27/2024: Blood work showed TSH elevated at 8.76, with normal free T4. Dose of levothyroxine increased to 112 mcg daily. Blood work not repeated. Plan: -patient has orders of TSH, free T4 to be repeated now -we will communicate results with her in order to adjust levothyroxine -continue levothyroxine 112 mcg daily till I get her results Plan See above Patient Instructions: Continue levothyroxine 112 mcg daily, we will reach out with results of the blood work and if dose needs any adjustment Do thyroid blood work now For bones Continue vitamin D 2000 units daily Incorporate 2 to 3 servings of calcium rich foods in diet such as milk, yogurt, cheese to account for 1000 mg of calcium in your diet Do weight-bearing exercise such as walking 30 minutes daily Your next set of labs for your bones we will be due prior to your next follow up in 6 months, do these labs a week or 2 before your appointment Coding Level of Care Code Est Pt Level 3 (75494) Diagnoses History of primary hyperparathyroidism Z86.39 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
== END 2024-08-04 11:20 | disposition home or self-care (01) ==
PROVIDERS: PCP Internal Medicine; Visit Provider Student in an Organized Health Care Education/Training Program
DX: Z86.39 Personal history of other endocrine, nutritional and metabolic disease (principal); E06.3 Autoimmune thyroiditis
CPT/HCPCS: 99213

== ENCOUNTER 2024-08-04 11:24 | Outpatient (REF) | payer MEDICARE, SELFPAY ==
--- OUTSIDE RECORDS SUMMARY | 2024-08-04 13:32 | XMS_ITS | Patient Health Record ---
Author Organization [facility] Address [address] [place] [address] Support Name Relationship Address Phone CHATO SKELTON Guarantor Unknown [phone] Reason For Referral No Information Problems Problem Type SNOMED Code ICD Code Onset Dates Problem Status W/U Status Risk Notes Problem Obesity (791227387) Obesity, unspecified (278.00) Active confirmed Diag Problem Urinary tract infectious disease (disorder) (48230014) Urinary tract infection, site not specified (599.0) Active confirmed Diag Problem Menopausal symptom (43171004) Symptomatic menopausal or female climacteric states (627.2) Active confirmed Major Problem Gynecological examination normal (206211338478948) Routine gynecological examination (V72.31) Active confirmed Major Problem Screening for malignant neoplasm of colon (706210433) Special screening for malignant neoplasms, colon (V76.51) Active confirmed Major Plan Of Treatment No Information Insurance Providers Payer Name Payer Address Payer Phone Subscriber Number Group Number Insured Name Patient Relationship to Insured Coverage Start Date Coverage End Date [employer] [address] [place] [address] [phone] [id number] CHATO SKELTON Self - patient is the insured
--- OUTSIDE RECORDS SUMMARY | 2024-08-04 13:32 | XMS_ITS | Clinical Summary ---
Author Organization 175 [facility] Address [address] [place] [address] Phone Care Team Providers Care Applied Anthropologist Name Role Phone Di Bae MD Primary Care Provider [phone] Allergies No known active allergies Medications metoprolol succinate (TOPROL-XL) 100 mg 24 hr tablet Take 1 tablet (100 mg total) by mouth 1 (one) time each day. 09/24/2018 Active atorvastatin (LIPITOR) 10 mg tablet Take 1 tablet (10 mg total) by mouth 1 (one) time each day. 09/06/2017 Active Active Problems Problem Noted Date Diagnosed Date Morbid obesity with BMI of 40.0-44.9, adult 11/2024 Vitamin D deficiency 09/04/2017 Cholelithiasis 06/14/2017 Hyperlipidemia 03/02/2017 Essential hypertension 03/07/2016 Type 2 diabetes mellitus 03/02/2016 Overview (06/09/2024): Diabetes mellitus type 2 in obese (HCC) Thoracic aortic aneurysm without rupture 016 Hyperparathyroidism 07/24/2014 Hypercalcemia 03/02/2008 Esophageal reflux 10/30/2006 Encounters Date Type Department Care Team Description 06/13/2024 10:15 AM EST Consult Orthopedic Surgery [facility] [address] [facility] [address] [place] [address] Des Chao, ЕКАТЕРИНА Type 2 diabetes mellitus without complications ([facility]/HCC) (Primary Dx); Equinus contracture of left ankle; Arthritis of both feet from Last 3 Months Immunizations Name Administration Dates Next Due H1N1 Inj Preservative Free 05/14/2009 Influenza trivalent, with pr eservative (Fluzone; Afluria) 6mo and older 04/05/2015,05/14/2009,03/02/2008 Td Tetanus diptheria (Tdvax) 7yo and older 02/22,06/04/1996 Tdap Tetanus diptheria acell ular pertussis (Boostrix; Adacel) 7yo and older 10/30/2006 Social History Tobacco Use Types Packs/Day Years Used Date Smoking Tobacco: Never Assessed Comments Unknown Sex and Gender Information Value Date Recorded Sex Assigned at Not on file Legal Sex Female 8:48 PM EST Gender Identity Not on file Sexual Orientation Not on file Plan of Treatment Health Maintenance Due Date Last Done Comments Diabetes: Annual Foot Exam 1969 Diabetes: Annual Retina Eye Exam 1969 Pneumococcal Vaccine: 50+ Years (1 of 2 - PCV) 1978 Pneumococcal Vaccine: Pediatrics (0 to 5 Years) and At-Risk Patients (6 to 64 Years) (1 of 2 - PCV) 1978 Zoster Vaccines (1 of 2) 2009 Diabetes: Annual GFR (Glomerular Filtration Rate) 02/06/2019 02/06/2018 RSV Immunization Patients 60+ Years Old (1 - Risk 60-74 years 1-dose series) 2019 Cervical Cancer Screening: Pap Smear 06/26/2019 06/26/2016, 06/26/2016 Breast Cancer Screening 08/11/2019 08/10/2017, 08/02 COVID-19 Vaccine ( season) 2024 06/12/2022 Cholesterol Screening (Lipid Panel) 05/21/2024 09/04/2017 Colorectal Cancer Screening: Colonoscopy 05/21/2024 Depression Screening 05/21/2024 Diabetes: Annual Urine Albumin-Creatinine Ratio (uACR) 05/21/2024 10/27/2016 Diabetes: Blood Sugar Control Test (HGBA1C) 05/21/2024 02/06/2018 Falls Risk Assessment 05/21/2024 Hypertension/CHF/CAD Annual BMP Blood Test 05/21/2024 02/06/2018 Medicare Annual Wellness Visit 05/21/2024 Social Influencers of Health Screening 05/21/2024 DTaP,Tdap,and Td Vaccines (4 - Td or Tdap) 02/22/2027 02/22/2017, 10/30/2006, 06/04/1996 Osteoporosis Screening (Bone Density Screening) 06/29/2027 06/29/2017 Hepatitis C Screening Completed 01/07/2013 Influenza Vaccine Completed 05/05/2024, , 05/14/2009, Additional history exists HIB Vaccines Aged Out No longer eligi ble based on patient's age to complete this topic HPV Vaccines Aged Out No longer eligi ble based on patient's age to complete this topic Hepatitis A Vaccines Aged Out No long er eligible based on patient's age to complete this topic Hepatitis B Vaccines Aged Out No long er eligible based on patient's age to complete this topic IPV Vaccines Aged Out No longer eligi ble based on patient's age to complete this topic MMR Vaccines Aged Out No longer eligi ble based on patient's age to complete this topic Meningococcal ACWY Vaccine Aged Out N o longer eligible based on patient's age to complete this topic Meningococcal B Vacine Aged Out No lo nger eligible based on patient's age to complete this topic RSV Immunization Patients Under 20 months Aged Out No longer eligible based on patient's age to complete this topic Varicella Vaccines Aged Out No longer eligible based on patient's age to complete this topic Procedures Procedure Name Priority Date/Time Associated Diagnosis Comments ANNUAL BMP BLOOD TEST Routine 02/06/2018 HEMOGLOBIN A1C Routine 02/06/2018 LIPID PANEL Routine 09/04/2017 SCR MAMMO BI INCL CAD Routine 08/10/2017 8:49 AM EST Encounter for screening mammogram for malignant neoplasm of breast DXA BONE DENSITY STUDY 1+ SITS AXIAL SKEL Routine 06/29/2017 9:15 AM EST Hypercalcemia Hyperparathyroidism, unspecified (CMS/HCC) URINE ALBUMIN CREATININE RATIO Routine 10/27/2016 HPV Routine 06/26/2016 HEPATITIS C SCREENING Routine 01/07/2013 from Last 3 Months or Most Recently Relevant to Health Maintenance Results * Annual BMP Blood Test (02/06/2018) Annual BMP Blood Test abstracted [facility] Provider MD HEALTH MAINTENANCE Final Result * (ABNORMAL) Hemoglobin A1c (02/06/2018) Pathologist [facility] Hemoglobin A1C 6.5(A) 4.0 - 6.0 % Blood Venous blood specimen / Unknown [facility] Provider MD LAB BLOOD ORDERABLES Ashley l Result * Lipid panel (09/04/2017) Pathologist [facility] LDL/HDL Ratio 2 0 - 4 Triglycerides 128 0 - 150 mg/dL Cholesterol 171 0 - 200 mg/dL HDL 71 >=40 mg/dL LDL Cholesterol 74 0 - 100 mg/dL Blood Venous blood specimen / Unknown [facility] Provider MD LAB BLOOD ORDERABLES Ashley l Result * SCR MAMMO BI INCL CAD (08/10/2017 8:49 AM EST) Anatomical Region Laterality Modality Radiographic Angela ging 08/02/2016 2:50 PM EST Narrative 08/10/2017 10:26 AM EST This is a summary report. The complete report is available in the patient's medical record. If you cannot access the medical record, please contact the sending organization for a detailed fax or copy. Full field digital screening mammography, reviewed with CAD and compared to previous. ??The breasts are composed of fatty and fibroglandular tissue. ??Scattered punctate, round, or loosely grouped calcifications are unchanged bilaterally. No suspicious mass, architectural distortion or suspicious calcifications are identified. IMPRESSION: : No mammographic evidence of malignancy. BI-RADS 2-benign. 5 year breast cancer risk assessment 1.7 % Lifetime breast cancer risk assessment 8.9 % Breast cancer risk category Low (<15%) Procedure Note Lamar Reed, DO - 12/20/2022 This is a summary report. The complete report is available in thepatient's medical record. If you cannot access the medical record, pleasecontact the sending organization for a detailed fax or copy. Full field digital screening mammography, reviewed with CAD and comparedto previous. The breasts are composed of fatty and fibroglandular tissue.Scattered punctate, round, or loosely grouped calcifications areunchanged bilaterally. No suspicious mass, architectural distortion orsuspicious calcifications are identified. IMPRESSION: : No mammographic evidence of malignancy. BI-RADS 2-benign. 5 year breast cancer risk assessment 1.7 % Lifetime breast cancer risk assessment 8.9 % Breast cancer risk category Low (<15%) Joie Lopez DO IMG XR PROCEDURES Final Result * DXA BONE DENSITY STUDY 1+ SITS AXIAL SKEL (06/29/2017 9:15 AM EST) Anatomical Region Laterality Modality Bone Densitometr y 06/14/2017 11:0 4 AM EST Narrative 06/29/2017 3:58 PM EST BONE DENSITY (DEXA) ? Lumbar Spine T-score is -0.4. ?? (SD relative to 20-29 y/o adult) Z-score is 0.1. ??(SD relative to age matched peers) This is considered normal by WHO criteria. Left Hip T-score is 0.9. Z-score is 0.8. This is considered normal by WHO criteria. IMPRESSION: This patient is considered to have normal bone density by WHO criteria. The [facility] Department of Internal Medicine recommends using National Osteoporosis Foundation (NOF) guidelines in treatment decisions related to osteoporosis. NOF guidelines suggest considering treatment for postmenopausal women and men aged 50 or older presenting with the following: History of hip or vertebral fracture. T-score = -2.5 (DXA) at the femoral neck, total hip, or spine, after appropriate evaluation to exclude secondary causes. Low bone mass (T-score between -1.0 and -2.5 at the femoral neck or spine) AND a 10-year probability of a hip fracture = 3% OR a 10-year probability of a major osteoporosis-related fracture = 20% based on the [place]-adapted WHO algorithm Please note that all treatment decisions require clinical judgment and consideration of individual patient factors, including patient preferences, co-morbidities, previous drug use, risk factors not captured in the FRAX model (e.g., frailty, falls, vitamin D deficiency, increased bone turnover, interval significant decline in bone density) and possible under- or over-estimation of fracture risk by FRAX. Optional alternative screening schedule based on brittni Camp., [facility] June 22, 2011 for patients with osteopenia (based on hip BMD T-score) is as follows: * ??advanced osteopenia (T scores -2.00 to -2.49), BMD testing every year * ??moderate osteopenia (T scores -1.50 to -1.99), BMD testing every 5 years mild osteopenia or normal BMD (T scores -1.50 and higher), BMD testing every 15 years Procedure Note Bhavya Naranjo MD - 07/09/2023 BONE DENSITY (DEXA) Lumbar Spine T-score is -0.4. (SD relative to 20-29 y/o adult) Z-score is 0.1. (SD relative to age matched peers) This is considered normal by WHO criteria. Left Hip T-score is 0.9. Z-score is 0.8. This is considered normal by WHO criteria. IMPRESSION: This patient is considered to have normal bone density by WHO criteria. The [facility] Department of Internal Medicine recommendsusing National Osteoporosis Foundation (NOF) guidelines in treatment decisions related toosteoporosis. NOF guidelines suggest considering treatment for postmenopausal women and menaged 50 or older presenting with the following: History of hip or vertebral fracture. T-score = -2.5 (DXA) at the femoral neck, total hip, or spine, afterappropriate evaluation to exclude secondary causes. Low bone mass (T-score between -1.0 and -2.5 at the femoral neck or spine)AND a 10-year probability of a hip fracture = 3% OR a 10-year probability of a majorosteoporosis-related fracture = 20% based on the [place]-adapted WHO algorithm Please note that all treatment decisions require clinical judgment andconsideration of individual patient factors, including patient preferences, co- morbidities,previous drug use, risk factors not captured in the FRAX model (e.g., frailty, falls, vitaminD deficiency, increased bone turnover, interval significant decline in bone density) andpossible under- or over-estimation of fracture risk by FRAX. Optional alternative screening schedule based on brittni Camp., [facility] for patients with osteopenia (based on hip BMD T-score) is as follows: * advanced osteopenia (T scores -2.00 to -2.49), BMD testing every year * moderate osteopenia (T scores -1.50 to -1.99), BMD testing every 5years mild osteopenia or normal BMD (T scores -1.50 and higher), BMD testingevery 15 years Chuck Montilla MD IMG DXA PROCEDURES Final Result * Urine Albumin Creatinine Ratio (10/27/2016) [facility] Urine Albumin Creatinine Ratio abstracted Result [facility] Provider HEALTH MAINTENANCE Final Result * Cervical Cancer Screening: HPV (06/26/2016) [facility] Cervical Cancer Screening: HPV abstracted, negative Result [facility] Provider HEALTH MAINTENANCE Final Result * Hepatitis C Screening (01/07/2013) [facility] Hepatitis C Screening abstracted Result [facility] Provider HEALTH MAINTENANCE Final Result from Last 3 Months or Most Recently Relevant to Health Maintenance Insurance [employer] MEDICARE ADVANTAGE MEDICAID - [place] Care Teams Applied Anthropologist Relationship Specialty Start Date End Date Di Bae MD [address] [facility] [place] [address] PCP - General Internal Medicine 05/21/24
[2024-08-04 13:35] LABS: Free T4 (Free Thyroxine) 1.08 ng/dL (0.71-1.85); Thyroid Stimulating Hormone 4.81 uIU/mL (0.32-4.0)
== END 2024-08-04 11:25 | disposition home or self-care (01) ==
LOC: HO.10HDL 11:24
PROVIDERS: Visit Provider Student in an Organized Health Care Education/Training Program
DX: E06.3 Autoimmune thyroiditis (principal); Z86.39 Personal history of other endocrine, nutritional and metabolic disease
CPT/HCPCS: 36415; 84439; 84443; 99212

== ENCOUNTER 2024-11-05 07:33 | Outpatient (REF) | payer MEDICARE, SELFPAY ==
--- OUTSIDE RECORDS SUMMARY | 2024-11-05 07:35 | XMS_ITS | Clinical Summary ---
Author Organization 175 [facility] Address [address] [place] [address] Phone Care Team Providers Care Furnace Maintenance Name Role Phone Di Bae MD Primary Care Provider [phone]- [phone] Allergies No known active allergies Medications metoprolol succinate (TOPROL-XL) 100 mg 24 hr tablet Take 1 tablet (100 mg total) by mouth 1 (one) time each day. 09/24/2018 Active atorvastatin (LIPITOR) 10 mg tablet Take 1 tablet (10 mg total) by mouth 1 (one) time each day. 09/06/2017 Active Active Problems Problem Noted Date Diagnosed Date Morbid obesity with BMI of 4 0.0-44.9, adult ([facility] V24, [facility] V28) 06/09/2024 Vitamin D deficiency 09/04/2017 Cholelithiasis 06/14/2017 Hyperlipidemia 03/02/2017 Essential hypertension 03/07/2016 Type 2 diabetes mellitus ([facility] V24, [facility] V 28) 03/02/2016 Overview (06/09/2024): Diabetes mellitus type 2 in obese ([facility]) Thoracic aortic aneurysm without rupture ([facility]/ C V24) 11/09/2015 Hyperparathyroidism ([facility] V24) 07/24/2014 Hypercalcemia 03/02/2008 Esophageal reflux 10/30/2006 Immunizations Name Administration Dates Next Due H1N1 [...] (Glomerular Filtration Rate) 02/06/2019 02/06/2018 RSV Immunization Adult Patients (1 - Risk 60-74 years 1-dose series) [...] age to complete this topic Meningococcal B Vaccine Aged Out No l onger eligible based on patient's age to complete [...] 06/29/2017 9:15 AM EST Hypercalcemia Hyperparathyroidism, unspecified (CMS/HCC V24) URINE ALBUMIN CREATININE RATIO Routine 10/27/2016 HPV Routine 06/26/2016 HEPATITIS C SCREENING Routine 01/07/2013 from Last 3 Months or Most Recently Relevant to Health Maintenance Results * Annual BMP Blood Test (02/06/2018) Pathologist [facility] Annual BMP Blood Test abstracted [facility] Provider HEALTH MAINTENANCE Final Result * (ABNORMAL) Hemoglobin A1c (02/06/2018) [facility] Hemoglobin A1C 6.5(A) 4.0 - 6.0 % Blood Venous blood specimen / Unknown Result [facility] Provider LAB BLOOD ORDERABLES Ashley l Result * Lipid panel (09/04/2017) [facility] LDL/HDL Ratio 2 0 - 4 Triglycerides 128 0 - 150 mg/dL Cholesterol 171 0 - 200 mg/dL HDL 71 >=40 mg/dL LDL Cholesterol 74 0 - 100 mg/dL Blood Venous blood specimen / Unknown Result [facility] Provider LAB BLOOD ORDERABLES Ashley l Result * [...] (<15%) Procedure Note Lamar Reed, DO - 05/23/2022 This is a summary report. The complete [...] Breast cancer risk category Low (<15%) Joie Rottenpavithra DO IMG XR PROCEDURES Final Result * [...] normal bone density by WHO criteria. The [facility] Department of Internal Medicine recommends using National [...] FRAX. Optional alternative screening schedule based on stefanie Camp al., [facility] June 22, 2011 for patients with osteopenia [...] normal bone density by WHO criteria. The [facility] Department of Internal Medicine recommendsusing National Osteoporosis [...] alternative screening schedule based on brittni Camp., [facility] for patients with osteopenia (based on hip BMD T-score) is as follows: * advanced osteopenia (T scores -2.00 to -2.49), BMD testing every year * moderate osteopenia (T scores -1.50 to -1.99), BMD testing every 5years mild osteopenia or normal BMD (T scores -1.50 and higher), BMD testingevery 15 years Result [facility] Chuck Montilla MD IM DXA PROCEDURES Final Result * Urine Albumin Creatinine Ratio (10/27/2016) [facility] Urine Albumin Creatinine Ratio abstracted Result [facility] Provider HEALTH MAINTENANCE Final Result * Cervical Cancer Screening: HPV (06/26/2016) [facility] Cervical Cancer Screening: HPV abstracted, negative Result [facility] Provider HEALTH MAINTENANCE Final Result * Hepatitis C Screening (01/07/2013) [facility] Hepatitis C Screening abstracted [facility] Provider HEALTH MAINTENANCE Final Result from Last 3 Months or Most Recently Relevant to Health Maintenance Insurance [employer] MEDICARE ADVANTAGE MEDICAID - [place] Care Teams Furnace Maintenance Relationship Specialty Start Date End Date Di Bae MD [address] [place] [address] PCP - General Internal Medicine 05/21/24
[2024-11-05 08:48] LABS: Free T4 (Free Thyroxine) 1.19 ng/dL (0.71-1.85); Thyroid Stimulating Hormone 0.74 uIU/mL (0.32-4.0)
== END 2024-11-05 07:34 | disposition home or self-care (01) ==
LOC: HO.LAB 07:33
PROVIDERS: PCP Internal Medicine; Visit Provider Student in an Organized Health Care Education/Training Program
DX: E06.3 Autoimmune thyroiditis (principal)
CPT/HCPCS: 36415; 84439; 84443

== ENCOUNTER 2024-12-01 14:07 | Outpatient (AMB) | payer MEDICARE, SELFPAY ==
[2024-12-01 14:09] VITALS: BP 134/80; PULSE 100; TEMP 36.8; O2SAT 94; BMI 39.0
--- NOTE | 2024-12-01 14:09 | AM.OFFWIN_ITS ---
Intake Vital Signs 12/01/24 14:09 Height 5 ft 4 in Weight 227 lb 4 oz BMI 39.0 BP 134/80 Blood Pressure Location Rt brachial Position Sitting Pulse 100 Pulse Source Pulse Oximeter Temp 98.3 F Temp Source Oral Pulse Oximetry (%) 94 Oxygen Delivery Method Room Air Intake Visit Reasons: EP Sciatica Intake Note: Patient present with lower back and bilateral leg pain, ? sciatica Patient Tobacco Use Status: Former Tobacco user Cherry Pitter Required: No Is last menstrual period known: No Post menopausal: Yes Patient : No Allergies Lactose Allergy (Intermediate, Uncoded 08/04/24 11:05) stomach upset Do you need a note to return to daycare/school/sports/work: No HPI HPI Comments History of Present Illness Details 64 y/o Female patient who presents to [facility] walk [facility] clinic with c/o Lower back pain radiating down both Lower extremities. She just came back from a Cruise. Denies Bowel or urinary symptoms. She has been using Acetaminophen 650 mg and Diclofenac cream with minimal relief. 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 History of primary hyperparathyroidism Menopausal vaginal dryness History of hyperparathyroidism Glenohumeral arthritis Acromioclavicular joint arthritis HTN (hypertension) NSTEMI (non-ST elevated myocardial infarction) Diabetic retinopathy screening Essential hypertension Osteopenia of left femoral neck Type 2 diabetes mellitus without complication, with no history of insulin use Atrial septal aneurysm Vitamin D deficiency Multinodular thyroid Jaki's disease Surgical History History of total thyroidectomy History of parathyroidectomy Hx of colonoscopy Hx of colonoscopy History of cardiac catheterization (~05/2020) History of partial hysterectomy Hx of tubal ligation Family History Mother Diabetes Arthritis Breast cancer, Onset Age: 70 Father No problems noted. Daughter Cervical cancer Social History Household Members: None Housing: House Alcohol intake: current Alcohol intake frequency: holidays/special occasions only Alcohol type: wine Patient Tobacco Use Status: Former Tobacco user e-Cigarette/Vaping Use: Never Used Patient : No service: No Current occupational status: retired Cognitive needs: No Hearing needs: No Vision needs: Yes Female Reproductive History Menstrual Age of Menarche: 12 Review of Systems Const All systems reviewed & are unremarkable except as noted in HPI and below Physical Exam Vital Signs: Last Vital Signs Temp 98.3 F 12/01/24 14:09 Pulse 100 12/01/24 14:09 BP 134/80 12/01/24 14:09 Pulse Ox 94 12/01/24 14:09 Oxygen Delivery Method Room Air 12/01/24 14:09 BMI result Body Mass Index 39.0 Const General: no acute distress Nutritional Appearance: obese Orientation/consciousness: patient oriented x3 Back/Spine/Pelvis Back: back tenderness Thoracic/Lumbar Spine: pain with thoraco-lumbar ROM, thoraco-lumbar spasm and lumbar spinal tenderness Neuro General: patient oriented x3, gait normal and moves all extremities Psych Speech and movement: Normal speech and movement present Assessment & Plan Assessment & Plan (1) Low back pain: Code(s): M54.50 - Low back pain, unspecified Qualifiers: Back pain laterality: midline Chronicity: acute Sciatica laterality: bilateral sciatica Sciatica presence: with sciatica Qualified Code(s): M54.42 - Lumbago with sciatica, left side; M54.41 - Lumbago with sciatica, right side Plan: Ordered Acetaminophen and NSAIDs for pain relief Ice/Hot Rest Muscle relaxants. Medications: New acetaminophen 1,000 mg (2 x 500 mg) PO Q6H PRN 30 caps 0RF pain M54.41 - Lumbago with sciatica, right side, M54.42 - Lumbago with sciatica, left side ibuprofen 800 mg PO Q8H 30 tabs 0RF M54.41 - Lumbago with sciatica, right side, M54.42 - Lumbago with sciatica, left side cyclobenzaprine 10 mg PO BEDTIME 14 tabs 0RF M54.41 - Lumbago with sciatica, right side, M54.42 - Lumbago with sciatica, left side Coding Level of Care Code Est Pt Level 4 (54094) Diagnoses Acute midline low back pain with bilateral sciatica M54.42; M54.41 Back pain laterality: midline Chronicity: acute Sciatica laterality: bilateral sciatica Sciatica presence: with sciatica Time Spent (min) 20
--- OUTSIDE RECORDS SUMMARY | 2024-12-01 14:43 | XMS_ITS | Patient Health Record ---
Author Organization [facility] Address [address] [place] [address] Support Name Relationship Address Phone CHATO SKELTON Guarantor Unknown [phone] Reason For Referral No Information Problems Problem Type SNOMED Code ICD Code Onset Dates Problem Status W/U Status Risk Notes Problem Obesity (565965978) Obesity, unspecified (278.00) Active confirmed Diag Problem Urinary tract infectious disease (disorder) (32567462) Urinary tract infection, site not specified (599.0) Active confirmed Diag Problem Menopausal symptom (88596309) Symptomatic menopausal or female climacteric states (627.2) Active confirmed Major Problem Gynecological examination normal (143550142002383) Routine gynecological examination (V72.31) Active confirmed Major Problem Screening for malignant neoplasm of colon (035756057) Special screening for malignant neoplasms, colon (V76.51) Active confirmed Major Plan Of Treatment No Information Insurance Providers Payer Name Payer Address Payer Phone Subscriber Number Group Number Insured Name Patient Relationship to Insured Coverage Start Date Coverage End Date [employer] [place] [address] [place] [phone] [id number] CHATO SKELTON Self - patient is the insured
--- OUTSIDE RECORDS SUMMARY | 2024-12-01 14:43 | XMS_ITS | Clinical Summary ---
Author Organization [facility] Address [address] [place] [address] Phone Care Team Providers Care Clinical Safety Manager Name Role Phone Di Bae MD Primary Care Provider [phone] Allergies No known active allergies Medications metoprolol [...] obesity with BMI of 4 0.0-44.9, adult ([facility] V24, [facility] V28) 06/09/2024 Vitamin D deficiency 09/04/2017 Cholelithiasis 06/14/2017 Hyperlipidemia 03/02/2017 Essential hypertension 03/07/2016 Type 2 diabetes mellitus ([facility] V24, [facility] V 28) 03/02/2016 Overview (06/09/2024): Diabetes mellitus type 2 in obese ([facility]) Thoracic aortic aneurysm without rupture ([facility]/ C V24) 11/09/2015 Hyperparathyroidism ([facility] V24) 07/24/2014 Hypercalcemia 03/02/2008 Esophageal reflux 10/30/2006 [...] * Annual BMP Blood Test (02/06/2018) Pathologist [facility] Annual BMP Blood Test abstracted [facility] Provider HEALTH MAINTENANCE Final Result * (ABNORMAL) Hemoglobin A1c (02/06/2018) [facility] Hemoglobin A1C 6.5(A) 4.0 - 6.0 % Blood Venous blood specimen / Unknown Result [facility] Provider MD LAB BLOOD ORDERABLES Ashley l Result * Lipid panel (09/04/2017) [facility] LDL/HDL Ratio 2 0 - 4 Triglycerides 128 0 - 150 mg/dL Cholesterol 171 0 - 200 mg/dL HDL 71 >=40 mg/dL LDL Cholesterol 74 0 - 100 mg/dL Blood Venous blood specimen / Unknown Result [facility] Provider LAB BLOOD ORDERABLES Ashley l Result [...] reviewed with CAD and compared to previous. The breasts are composed of fatty and fibroglandular tissue. Scattered punctate, round, or loosely grouped calcifications are [...] % Breast cancer risk category Low (<15%) Joiejim Cumminspavithra DO IMG XR PROCEDURES Final Result * DXA BONE DENSITY STUDY 1+ SITS AXIAL SKEL (06/29/2017 9:15 AM EST) Anatomical Region Laterality Modality Bone Densitometr y 06/14/2017 11:0 4 AM EST Narrative 06/29/2017 3:58 PM EST BONE DENSITY (DEXA) Lumbar Spine T-score is -0.4. (SD relative to 20-29 y/o adult) Z-score is 0.1. (SD relative to age matched peers) This is considered normal by WHO criteria. Left Hip T-score is 0.9. Z-score is 0.8. This is considered normal by WHO criteria. IMPRESSION: This patient is considered to have normal bone density by WHO criteria. [facility] Department of Internal Medicine recommends using [...] alternative screening schedule based on brittni Camp., [facility] June 22, 2011 for patients with [...] normal bone density by WHO criteria. [facility] Department of Internal Medicine recommendsusing National [...] alternative screening schedule based on brittni Camp., [facility]2011 for patients with osteopenia (based on hip [...] Result * Urine Albumin Creatinine Ratio (10/27/2016) [facility] Urine Albumin Creatinine Ratio abstracted Result [facility] Provider HEALTH MAINTENANCE Final Result * Cervical Cancer Screening: HPV (06/26/2016) [facility] Cervical Cancer Screening: HPV abstracted, negative Result [facility] Provider HEALTH MAINTENANCE Final Result * Hepatitis C Screening (01/07/2013) [facility] Hepatitis C Screening abstracted Result [facility] Provider HEALTH MAINTENANCE Final Result from Last 3 Months or Most Recently Relevant to Health Maintenance Insurance [employer] MEDICARE ADVANTAGE MEDICAID - [place] Care Teams Clinical Safety Manager Relationship Specialty Start Date End Date Di Bae MD [address] [place] [address] PCP - General Internal Medicine 05/21/24
== END 2024-12-01 14:27 | disposition home or self-care (01) ==
PROVIDERS: PCP Internal Medicine; Visit Provider Nurse Practitioner Family
DX: M54.42 Lumbago with sciatica, left side (principal); M54.41 Lumbago with sciatica, right side

== ENCOUNTER → 2024-12-01 14:07 | Outpatient (BNVA) | payer MEDICARE, SELFPAY | PROVIDERS: PCP Internal Medicine; Visit Provider Nurse Practitioner Family | DX: M54.42 Lumbago with sciatica, left side (principal); M54.41 Lumbago with sciatica, right side | CPT/HCPCS: 99212 ==

== ENCOUNTER 2025-02-03 11:01 | Outpatient (AMB) | payer MEDICARE, SELFPAY ==
[2025-02-03 11:08] VITALS: BP 110/68; PULSE 69; O2SAT 96; BMI 37.9
--- NOTE | 2025-02-03 11:08 | MHC.OFFVIS ---
Vital Signs 02/03/25 11:08 Height 5 ft 4 in Weight 220 lb 10.923 oz BMI 37.9 BP 110/68 Blood Pressure Location Lt brachial Position Sitting Pulse 69 Pulse Source Pulse Oximeter Pulse Oximetry (%) 96 Oxygen Delivery Method Room Air Intake Visit Reasons: Hyperparathyroidism Intake Note: Patient present today for Hyperparathyroidism office visit. Collections Analyst Required: No Accompanied by: Self / Same As Patient Allergies Lactose Allergy (Intermediate, Uncoded 02/03/25 11:12) stomach upset Medication List - Last Reconciled 02/03/25 by Danielle Newton MD acetaminophen 1,000 mg (2 x 500 mg) PO Q6H PRN amlodipine 10 mg PO DAILY atorvastatin 20 mg PO DAILY blood sugar diagnostic (FreeStyle Lite Strips) test blood sugar once a day cholecalciferol (vitamin D3) 50 mcg PO BEDTIME lancets (FreeStyle Lancets) Test blood sugar once a day levothyroxine 125 mcg PO DAILY metformin 500 mg PO BEDTIME metoprolol succinate ER 100 mg PO DAILY HPI Comments Details: 64-year-old female coming in today for follow up of history of hyperparathyroidism. History of hyperparathyroidism status post right superior and left superior parathyroidectomy 10/24/2022 HPI from prior visits First noted to have high Calcium in September of 2018. She then had labs assessed 12/30/2019 with a Total Calcium of 10.2, PTH of 68 and iCal of 59. No Vitamin D or Albumin was assessed. Those were checked 11/05/2018 and Albumin was 4.3 with Vitamin D 25.3. 24 hour urine was assessed at that time and was WNL. Labs repeated 02/18/2020 with Calcium 10.5, albumin 4.0, iCal 6.0, PTH 60 and Vitamin D 37.1. 24 hour urine Calcium was 160 and was an adequate collection. This was thought to be consistent with primary hyperparathyroidism. DEXA reveals Osteopenia, but no evidence of Osteoporosis. US was unable to localize an abnormal parathyroid gland. Labs were repeated 07/08/2020 with Calcium 10.4, Albumin 4.1, PTH 77 and Vitamin D 41. She does complain of significant constipation, body aches as well as polyuria. Takes 2000 IU of Vitamin D daily. Kidney stones: Denies Osteoporosis: Osteopenia of the hip Family history of high calcium or kidney stones: Denies Parathyroidectomy with Dr. 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 Intraop PTH dropped from 97 to 30 and then 16 pg/ml She is on vitamin-D 2000 units daily. Not on any calcium supplements. Denies any recent fractures. interval history 08/04/24 05/30/2024: DEXA scan showed lumbar spine T-score of -0.9, with a 6% decrease from previous bone density in 2020. Left femoral neck T-score -1 which is these consistent with normal bone density, left femoral total T-score 0.3 with 0.9% decrease from previous, which is also consistent with normal bone density at the hip which has remained stable. Left forearm T-score-1.5 consistent with osteopenia with a 12% decrease from previous in 2020. Most recent blood work from May 2024 showed normal calcium, vitamin-D was at 40 from May 2024. Normal kidney function. PTH is elevated at 86. vitamin-D 2000 units daily Cheese here and there No fractures interval history 02/03/25 Vitamin d 2000 units daily No fall or fractures forgot to do blood work Hypothyroidism Jaki's thyroiditis She also has Hypothyroidism and is currently using Levothyroxine 100 mcg PO daily. She had a thyroid US in 2019 which revealed multiple nodules. She presented 03/04/2020 for US guided FNA of these nodules, but was found to have a chandra-gland and only pseudonodules, no true nodules. No FNA was performed. Most recently labs from 04/30/2024 showed elevated TSH of 10.98, normal free T4 of 1.03. She does report some fatigue, no other symptoms of hyperthyroidism or hypothyroidism. Interval history 08/04/24 05/27/2024: Blood work showed TSH elevated at 8.76, with normal free T4. Dose of levothyroxine increased to 112 mcg daily. Blood work not repeated. Interval history 02/03/25 TSH elevated August 2024 Levothyroxine increased to 125 mcg daily 08/05/24 last labs 11/05/24 showed normal TSH and free t4 Physical exam General: sitting comfortably in no acute distress HEENT: normocephalic/atraumatic, , moist oral mucosa Neck: supple, symmetrical Cardiac: normal heart sounds Pulm: normal breath sounds B/L, no added breath sounds Abd: not distended, no tenderness Extremities: no edema, no signs of myxedema Imaging: BONE DENSITOMETRY 05/30/24 CLINICAL INDICATION: Personal history of other endocrine, nutritional and metabolic disorder. COMPARISON: Previous BD dated 06/10/2020 and baseline BD dated 09/19/2018. TECHNIQUE: Using a [employer] DXA System (software version: 13.1) manufactured by [employer], dual-energy x-ray absorptiometry was performed of the lumbar spine, left hip, and left forearm radius 33%. The images are of good technical quality. Summary results are attached. FINDINGS: LEFT FEMUR, NECK: Current: BMD 0.895 g/cm2, Z-score -1.2, T-score -1.0, normal. Prior: BMD 0.889 g/cm2. Baseline: BMD 0.870 g/cm2. LEFT FEMUR, TOTAL: Current: BMD 1.046 g/cm2, Z-score -0.3, T-score 0.3, normal, 0.9% decrease from previous, 3.6% increase from baseline (<5% change is not significant). Prior: BMD 1.056 g/cm2. Baseline: BMD 1.010 g/cm2. AP SPINE L1-L4 (excluding L3): The data of L1-L4 has been changed to exclude the L3 vertebral body, because at this level may cause overestimation of lumbar spine density. Current: BMD 1.062 g/cm2, Z-score -1.2, T-score -0.9, normal, 6.6% decrease from previous, 5.2% decrease from baseline (<5% change is not significant). Prior: BMD 1.137 g/cm2. Baseline: BMD 1.120 g/cm2. LEFT FOREARM RADIUS 33%: BMD 0.746 g/cm2, Z-score -0.8, T-score -1.5, osteopenia, 12.3% decrease from baseline (<5% change is not significant). Baseline 06/10/2020: BMD 0.851 g/cm2. IDENTIFIED RISK FACTORS: Menopause, hysterectomy, hyperparathyroidism, bilateral oophorectomy. HISTORY OF FRACTURE: None listed. MEDICATIONS: Vitamin D. MM/XR DEXA appendicular skeleton IMPRESSION: 1. DIAGNOSIS: Osteopenia based on the lowest T-score value of -1.5 in the forearm radius 33% applying World Health Organization criteria. 2. 10-YEAR FRACTURE RISK PREDICTION, FRAX: Major osteoporotic fracture (clinical spine, forearm, hip or shoulder) 3.2%. Hip fracture 0.2%. Thyroid US: 01/14/2020: Right Thyroid Lobe: 3.8 x 2.0 x 1.7 cm, volume 6.8 mL. Previously 3.9 x 2.0 x 1.8 cm, volume 7.3 mL. Parenchyma: The gland echotexture is heterogeneous. Thyroid vascularity is normal. Left Thyroid Lobe: 3.6 x 1.4 x 1.7 cm, volume 4.5 mL. Previously 3.7 x 1.4 x 2.0 cm, volume 5.4 mL. Parenchyma: The gland echotexture is heterogeneous. Thyroid vascularity is normal. Isthmus: 0.3 cm in maximum AP dimension. Previously 0.3 cm. RIGHT THYROID LOBE: There is 1 nodule seen. 1. Location: Mid pole. Size: 0.9 x 0.7 x 0.8 cm. Previous: Not documented. Nodule characteristics: Simple colloid cyst with smooth margins and no internal vascularity or calcifications. ISTHMUS: No nodules. LEFT THYROID LOBE: There are 2 nodules seen. 1. Location: Mid pole. Size: 1.1 x 0.7 x 1.0 cm. Previous: 1.0 x 0.7 x 1.0 cm. Nodule characteristics: Heterogeneous in echotexture with smooth margins. No calcification. There is some intranodular blood flow present. 2. Location: Mid pole. Size: 0.8 x 0.4 x 0.5 cm. Previous: Not documented. Nodule characteristics: Heterogeneous and hypoechoic with smooth margins. No calcification. There is intranodular blood flow. NODES: No lymphadenopathy is seen in the tissue surrounding the thyroid gland. DEXA 06/10/2020: FINDINGS: AP SPINE L1-L4: Current: BMD 1.182 g/cm2, Z-score -0.6, T-score 0.0, normal, 1.9% increase from baseline (<5% change is not significant). Baseline: BMD 1.160 g/cm2. LEFT FEMUR, NECK: Current: BMD 0.889 g/cm2, Z-score -1.5, T-score -1.1, osteopenia. Baseline: BMD 0.870 g/cm2. LEFT FEMUR, TOTAL: Current: BMD 1.056 g/cm2, Z-score -0.4, T-score 0.4, normal, 4.6% increase from baseline (<5% change is not significant). Baseline: BMD 1.010 g/cm2. LEFT FOREARM RADIUS 33%: BMD 0.851 g/cm2, Z-score 0.0, T-score -0.3, normal. Labs: Laboratory Tests 01/07/22 01/07/22 10:39 10:39 Creatinine 1.06 Estimated GFR 53 Albumin 4.2 25-OH Vitamin D Total 44.5 TSH 2.41 Free T4 1.15 PTH Intact 85 H Calcium (PTH Intact) 10.5 H Laboratory Tests 04/30/24 07:27 Creatinine 1.03 Estimated GFR 54 Calcium 8.7 25-OH Vitamin D Total 40.8 TSH 10.98 H Free T4 1.03 Laboratory Tests 04/30/24 05/27/24 07:27 10:34 Creatinine 0.99 Estimated GFR 56 Calcium 9.1 Phosphorus 3.6 Magnesium 2.1 Albumin 4.1 25-OH Vitamin D Total 40.8 TSH 8.76 H Free T4 0.99 PTH Intact 86.5 H Laboratory Tests 08/04/24 11/05/24 11:26 07:39 TSH 4.81 H 0.74 Free T4 1.08 1.19 [facility] Medical History (Updated 12/01/24 @ 14:27 by Hermelinda Ladd NP) Low back pain 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 History of primary hyperparathyroidism Menopausal vaginal dryness History of hyperparathyroidism Glenohumeral arthritis Acromioclavicular joint arthritis HTN (hypertension) NSTEMI (non-ST elevated myocardial infarction) Diabetic retinopathy screening Essential hypertension Osteopenia of left femoral neck Type 2 diabetes mellitus without complication, with no history of insulin use Atrial septal aneurysm Vitamin D deficiency Multinodular thyroid Jaki's disease Surgical History History of total thyroidectomy History of parathyroidectomy Hx of colonoscopy Hx of colonoscopy History of cardiac catheterization (~05/2020) History of partial hysterectomy Hx of tubal ligation Family History Mother Diabetes Arthritis Breast cancer, Onset Age: 70 Father No problems noted. Daughter Cervical cancer Social History Household Members: None Housing: House Alcohol intake: current Alcohol intake frequency: holidays/special occasions only Alcohol type: wine Patient Tobacco Use Status: Former Tobacco user e-Cigarette/Vaping Use: Never Used service: No Current occupational status: retired Cognitive needs: No Hearing needs: No Vision needs: Yes Female Reproductive History Menstrual Age of Menarche: 12 Physical Exam Vital Signs: Last Vital Signs Pulse 69 02/03/25 11:08 BP 110/68 02/03/25 11:08 Pulse Ox 96 02/03/25 11:08 Oxygen Delivery Method Room Air 02/03/25 11:08 BMI result Body Mass Index 37.9 Assessment & Plan Assessment & Plan (1) Osteopenia of left femoral neck: Code(s): M85.852 - Other specified disorders of bone density and structure, left thigh Category: Medical (2) History of primary hyperparathyroidism: Comment: s/p right and left superior parathyroidectomy for hypercalcemia due to primary hyperparathyroidism Code(s): Z86.39 - Personal history of other endocrine, nutritional and metabolic disease Category: Medical Plan: 64-year-old female with past medical history significant for primary hyperparathyroidism status post left superior and right superior parathyroidectomy with Dr. 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 Most recent labs from May 2024 showed normal calcium and albumin level, PTH was mildly elevated at 86.5, vitamin-D level from April 2024 was at 40, patient continues to take vitamin-D 2000 units daily.05/30/2024: DEXA scan showed lumbar spine T-score of -0.9, with a 6% decrease from previous bone density in 2020. Left femoral neck T-score -1 which is these consistent with normal bone density, left femoral total T-score 0.3 with 0.9% decrease from previous, which is also consistent with normal bone density at the hip which has remained stable. Left forearm T-score-1.5 consistent with osteopenia with a 12% decrease from previous in 2020. FRAX score does not meet criteria for treatment. I will keep an eye on her calcium and PTH levels to monitor for recurrence. Was supposed to do blood work prior to this appointment, not done. 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 She is currently on levothyroxine 125 mcg daily. Blood work from November 2024 shows normal TSH and free T4. Plan: -patient has orders of TSH, free T4 to be repeated now -we will communicate results with her -continue levothyroxine 125 mcg daily Plan See above Orders: Orders Thyroid Stimulating Hormone Today E06.3 - Autoimmune thyroiditis, M85.852 - Other specified disorders of bone density and structure, left thigh, Z86.39 - Personal history of other endocrine, nutritional and metabolic disease Calcium Today E06.3 - Autoimmune thyroiditis, M85.852 - Other specified disorders of bone density and structure, left thigh, Z86.39 - Personal history of other endocrine, nutritional and metabolic disease Calcium, Ionized Today E06.3 - Autoimmune thyroiditis, M85.852 - Other specified disorders of bone density and structure, left thigh, Z86.39 - Personal history of other endocrine, nutritional and metabolic disease Vitamin D 25-OH Total Today E06.3 - Autoimmune thyroiditis, M85.852 - Other specified disorders of bone density and structure, left thigh, Z86.39 - Personal history of other endocrine, nutritional and metabolic disease Free T4 (Free Thyroxine) Today E06.3 - Autoimmune thyroiditis, M85.852 - Other specified disorders of bone density and structure, left thigh, Z86.39 - Personal history of other endocrine, nutritional and metabolic disease Albumin Level Today E06.3 - Autoimmune thyroiditis, M85.852 - Other specified disorders of bone density and structure, left thigh, Z86.39 - Personal history of other endocrine, nutritional and metabolic disease Phosphorus Today E06.3 - Autoimmune thyroiditis, M85.852 - Other specified disorders of bone density and structure, left thigh, Z86.39 - Personal history of other endocrine, nutritional and metabolic disease Parathyroid Hormone Intact Today E06.3 - Autoimmune thyroiditis, M85.852 - Other specified disorders of bone density and structure, left thigh, Z86.39 - Personal history of other endocrine, nutritional and metabolic disease Creatinine Today E06.3 - Autoimmune thyroiditis, M85.852 - Other specified disorders of bone density and structure, left thigh, Z86.39 - Personal history of other endocrine, nutritional and metabolic disease Coding Level of Care Code Est Pt Level 3 (77841) Diagnoses Osteopenia of left femoral neck M85.852 History of primary hyperparathyroidism Z86.39 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
--- OUTSIDE RECORDS SUMMARY | 2025-02-03 12:39 | XMS_ITS | Clinical Summary ---
Author Organization 175 [facility] Address [address] [place] [address] Phone Care Team Providers Care Microbiology Director Name Role Phone Di Bae MD Primary Care Provider [phone]- [phone] Allergies No known active allergies Medications metoprolol [...] obesity with BMI of 4 0.0-44.9, adult ([facility] V24, [facility] V28) 06/09/2024 Vitamin D deficiency 09/04/2017 Cholelithiasis 06/14/2017 Hyperlipidemia 03/02/2017 Essential hypertension 03/07/2016 Type 2 diabetes mellitus ([facility] V24, [facility] V 28) 03/02/2016 Overview (06/09/2024): Diabetes mellitus type 2 in obese ([facility]) Thoracic aortic aneurysm without rupture ([facility] V24) 11/09/2015 Hyperparathyroidism ([facility] V24) 07/24/2014 Hypercalcemia 03/02/2008 Esophageal reflux 10/30/2006 [...] Years (1 of 2 - PCV) 1978 Zoster Vaccines (1 of 2) 2009 Diabetes: Annual GFR (Glomerular Filtration Rate) 02/06/2019 02/06/2018 RSV Immunization Adult Patients (1 - Risk 60-74 years 1-dose series) 2019 Cervical Cancer Screening: Pap Smear 06/26/2019 06/26/2016, 06/26/2016 Breast Cancer Screening 08/11/2019 08/10/2017, 08/02 Cholesterol Screening (Lipid Panel) 05/21/2024 09/04/2017 Colorectal Cancer Screening: Colonoscopy 05/21/2024 Diabetes: Annual Urine Albumin-Creatinine Ratio (uACR) 05/21/2024 10/27/2016 Diabetes: Blood Sugar Control Test (HGBA1C) 05/21/2024 02/06/2018 Falls Risk Assessment 05/21/2024 Hypertension/CHF/CAD Annual BMP Blood Test 05/21/2024 02/06/2018 Medicare Annual Wellness Visit 05/21/2024 Social Influencers of Health Screening 05/21/2024 Depression Screening 06/04/2024 COVID-19 Vaccine ( season) 2025 06/12/2022 Influenza Vaccine (#1) 2025 , 04/05/2015, 05/14/2009, Additional history exists DTaP,Tdap,and Td Vaccines (4 - Td or Tdap) 02/22/2027 02/22/2017, 10/30/2006, 06/04/1996 Osteoporosis Screening (Bone Density Screening) 06/29/2027 06/29/2017 Hepatitis C Screening Completed 01/07/2013 HIB Vaccines Aged Out No longer eligi [...] Test (02/06/2018) Annual BMP Blood Test abstracted us Historical Provider HEALTH MAINTENANCE Final Result * (ABNORMAL) Hemoglobin A1c (02/06/2018) Hemoglobin A1C 6.5(A) 4.0 - 6.0 % Blood Venous blood specimen / Unknown [facility] Provider LAB BLOOD ORDERABLES Ashley l Result * Lipid panel (09/04/2017) LDL/HDL Ratio 2 0 - 4 Triglycerides 128 0 - 150 mg/dL Cholesterol 171 0 - 200 mg/dL HDL 71 >=40 mg/dL LDL Cholesterol 74 0 - 100 mg/dL Blood Venous blood specimen / Unknown [facility] Provider LAB BLOOD ORDERABLES Ashley [...] normal bone density by WHO criteria. The [facility] Department of Internal Medicine recommends using [...] alternative screening schedule based on brittni Camp., [facility] June 22, 2011 for patients with osteopenia [...] normal bone density by WHO criteria. The [facility] Department of Internal Medicine recommendsusing National [...] alternative screening schedule based on brittni Camp., [facility]2011 for patients with osteopenia (based on hip BMD T-score) is as follows: * advanced osteopenia (T scores -2.00 to -2.49), BMD testing every year * moderate osteopenia (T scores -1.50 to -1.99), BMD testing every 5years mild osteopenia or normal BMD (T scores -1.50 and higher), BMD testingevery 15 years Result [facility] Chuck Montilla MD IMG DXA PROCEDURES Final Result * Urine Albumin Creatinine Ratio (10/27/2016) [facility] Urine Albumin Creatinine Ratio abstracted Result [facility] Historical Provider HEALTH MAINTENANCE Final Result * Cervical Cancer Screening: HPV (06/26/2016) [facility] Cervical Cancer Screening: HPV abstracted, negative e [facility] [employer] [facility] Provider HEALTH MAINTENANCE Final Result * Hepatitis C Screening (01/07/2013) [facility] Hepatitis C Screening abstracted [facility] Provider HEALTH MAINTENANCE Final Result from Last 3 Months or Most Recently Relevant to Health Maintenance Insurance AETNA MEDICARE ADVANTAGE MEDICAID - [place] Care Teams Microbiology Director Relationship Specialty Start Date End Date Di Bae MD [address] [place] [address] PCP - General Internal Medicine 05/21/24
== END 2025-02-03 11:24 | disposition home or self-care (01) ==
LOC: HO.ENCR 11:04
PROVIDERS: PCP Internal Medicine; Visit Provider Student in an Organized Health Care Education/Training Program
DX: M85.852 Other specified disorders of bone density and structure, left thigh (principal); Z86.39 Personal history of other endocrine, nutritional and metabolic disease; E06.3 Autoimmune thyroiditis
CPT/HCPCS: 99213

== ENCOUNTER → 2025-02-03 11:01 | Outpatient (BNVA) | payer MEDICARE, SELFPAY | PROVIDERS: PCP Internal Medicine; Visit Provider Student in an Organized Health Care Education/Training Program | DX: E06.3 Autoimmune thyroiditis (principal); E21.2 Other hyperparathyroidism; M85.852 Other specified disorders of bone density and structure, left thigh; Z86.39 Personal history of other endocrine, nutritional and metabolic disease | CPT/HCPCS: 99212 ==

== ENCOUNTER 2025-02-03 11:24 | Outpatient (REF) | payer MEDICARE, SELFPAY ==
[2025-02-03 13:58] LABS: Albumin Level 4.4 g/dL (3.5-5.0); Calcium 9.0 mg/dL (8.4-10.2); Estimated Glomerular Filt Rate 56
[2025-02-03 14:24] LABS: Free T4 (Free Thyroxine) 1.18 ng/dL (0.71-1.85); Thyroid Stimulating Hormone 0.94 uIU/mL (0.32-4.0)
[2025-02-03 14:49] LABS: Parathyroid Hormone Intact 53.2 pg/mL (8.7-77.1)
[2025-02-05 15:48] LABS: Calcium, Ionized 5.1 mg/dL (4.7-5.5)
== END 2025-02-03 11:25 | disposition home or self-care (01) ==
LOC: HO.10HDL 11:24
PROVIDERS: Visit Provider Student in an Organized Health Care Education/Training Program
DX: E06.3 Autoimmune thyroiditis (principal); M85.852 Other specified disorders of bone density and structure, left thigh; Z86.39 Personal history of other endocrine, nutritional and metabolic disease
CPT/HCPCS: 36415; 82040; 82306; 82310; 82330; 82565; 83970; 84100; 84439; 84443

== ENCOUNTER 2025-02-27 08:22 | Outpatient (REF) | payer MEDICARE, SELFPAY ==
--- OUTSIDE RECORDS SUMMARY | 2025-02-27 08:45 | XMS_ITS | Clinical Summary ---
Author Organization 175 [facility] Address [address] [place] [address] Phone Care Team Providers Care Forestry Fire Aide Name Role Phone Di Bae MD Primary Care Provider [phone]- [phone] Allergies No known active allergies Medications metoprolol [...] obesity with BMI of 4 0.0-44.9, adult ([facility] V24, [facility] V28) 06/09/2024 Vitamin D deficiency 09/04/2017 Cholelithiasis 06/14/2017 Hyperlipidemia 03/02/2017 Essential hypertension 03/07/2016 Type 2 diabetes mellitus ([facility] V24, [facility] V 28) 03/02/2016 Overview (06/09/2024): Diabetes mellitus type 2 in obese ([facility]) Thoracic aortic aneurysm without rupture ([facility] C V24) 11/09/2015 Hyperparathyroidism ([facility] V24) 07/24/2014 Hypercalcemia 03/02/2008 Esophageal reflux [...] % Blood Venous blood specimen / Unknown [facility] Provider LAB BLOOD ORDERABLES Ashley l Result * Lipid panel (09/04/2017) LDL/HDL Ratio 2 0 - 4 Triglycerides 128 0 - 150 mg/dL Cholesterol 171 0 - 200 mg/dL HDL 71 >=40 mg/dL LDL Cholesterol 74 0 - 100 mg/dL Blood Venous blood specimen / Unknown [facility] Provider LAB BLOOD ORDERABLES Ashley l [...] density by WHO criteria. The [facility] Department of Internal Medicine recommends using National [...] alternative screening schedule based on brittni Camp., [facility] June 22, 2011 for patients with [...] density by WHO criteria. The [facility] Department of Internal Medicine recommendsusing National Osteoporosis [...] schedule based on brittni Camp., [facility]2011 for patients with osteopenia (based on hip BMD T-score) is as follows: * advanced osteopenia (T scores -2.00 to -2.49), BMD testing every year * moderate osteopenia (T scores -1.50 to -1.99), BMD testing every 5years mild osteopenia or normal BMD (T scores -1.50 and higher), BMD testingevery 15 years Result [facility] Chuck Montilla MD IMG DXA PROCEDURES Final Result * Urine Albumin Creatinine Ratio (10/27/2016) [facility] Urine Albumin Creatinine Ratio abstracted Result [facility] Historical Provider HEALTH MAINTENANCE Final Result * Cervical Cancer Screening: HPV (06/26/2016) [facility] Cervical Cancer Screening: HPV abstracted, negative Result [facility] Provider HEALTH MAINTENANCE Final Result * Hepatitis C Screening (01/07/2013) [facility] Hepatitis C Screening abstracted [facility] Provider HEALTH MAINTENANCE Final Result from Last 3 Months or Most Recently Relevant to Health Maintenance Insurance AETNA MEDICARE ADVANTAGE [place] - [place] Care Teams Forestry Fire Aide Relationship Specialty Start Date End Date Di Bae MD [address] [place] [address] PCP - General Internal Medicine 05/21/24
--- OUTSIDE RECORDS SUMMARY | 2025-02-27 08:45 | XMS_ITS | Patient Health Record ---
Author Organization [facility] Address [address] [place] [address] Support Name Relationship Address Phone CHATO SKELTON Guarantor Unknown [phone] Reason For Referral No Information Problems Problem Type SNOMED Code ICD Code Onset Dates Problem Status W/U Status Risk Notes Problem Obesity (721763094) Obesity, unspecified (278.00) Active confirmed Diag Problem Urinary tract infectious disease (disorder) (97378552) Urinary tract infection, site not specified (599.0) Active confirmed Diag Problem Menopausal symptom (82341032) Symptomatic menopausal or female climacteric states (627.2) Active confirmed Major Problem Gynecological examination normal (275149276390720) Routine gynecological examination (V72.31) Active confirmed Major Problem Screening for malignant neoplasm of colon (668259795) Special screening for malignant neoplasms, colon (V76.51) Active confirmed Major Plan Of Treatment No Information Insurance Providers Payer Name Payer Address Payer Phone Subscriber Number Group Number Insured Name Patient Relationship to Insured Coverage Start Date Coverage End Date [employer] [address] [place] [address] [phone] [id number] CHATO SKELTON Self - patient is the insured
[2025-02-27 11:01] LABS: Alanine Aminotransferase 17 U/L (0-31); Aspartate Amino Transferase 22 U/L (5-31); Cholesterol 157 mg/dL (<200); HDL Cholesterol 54 mg/dL (>40); Triglycerides 62 mg/dL (<150)
== END 2025-02-27 08:23 | disposition home or self-care (01) ==
LOC: HO.HMGCLDS 08:22
PROVIDERS: PCP Internal Medicine; Visit Provider Internal Medicine
DX: E11.9 Type 2 diabetes mellitus without complications (principal); I10 Essential (primary) hypertension; I25.2 Old myocardial infarction
CPT/HCPCS: 36415; 80061; 84450; 84460

== ENCOUNTER 2025-03-04 13:39 | Outpatient (AMB) | payer MEDICARE, SELFPAY ==
[2025-03-04 14:13] VITALS: BP 110/78; PULSE 73; RESP 15; TEMP 36.8; O2SAT 97; BMI 37.2
--- NOTE | 2025-03-04 14:13 | MHC.PC.OV ---
Vital Signs 03/04/25 14:13 Height 5 ft 4 in Weight 217 lb BMI 37.2 BP 110/78 Blood Pressure Location Lt brachial Position Sitting Respiration 15 Pulse 73 Pulse Source Pulse Oximeter Temp 98.2 F Temp Source Oral Pulse Oximetry (%) 97 Oxygen Delivery Method Room Air Intake Visit Reasons: f/u lipids Intake Note: Pt is here today to f/u lipids Allergies Lactose Allergy (Intermediate, Uncoded 03/04/25 14:32) stomach upset Medication List - Last Reconciled 03/04/25 by Di Bae MD acetaminophen 1,000 mg (2 x 500 mg) PO Q6H PRN amlodipine 10 mg PO DAILY atorvastatin 20 mg PO DAILY blood sugar diagnostic (FreeStyle Lite Strips) test blood sugar once a day cholecalciferol (vitamin D3) 50 mcg PO BEDTIME lancets (FreeStyle Lancets) Test blood sugar once a day levothyroxine 125 mcg PO DAILY metformin 500 mg PO BEDTIME metoprolol succinate ER 100 mg PO DAILY Tobacco use date assessed: 03/04/25 Fall risk assessment: No Falls in past year Last assessed Fall Risk: 03/04/25 Dental Screening Dental Screen Date: 03/04/25 Did you have a dental visit in the last 12 months?: No Did you have a dental problem in the last 6 months where you did not have access to dental care?: No Was dental information given to patient?: Patient has dentist HPI f/u lipids HPI Details 64-year-old lady with history of autoimmune thyroiditis with subsequent hypothyroidism, dyslipidemia and diabetes mellitus here today for follow-up. She is currently being followed by Dr. Newton for her hyperparathyroidism and hypothyroidism status post parathyroidectomy and total thyroide[place] [address] Leigh, with latest thyroid levels and parathyroid levels within normal limits. Currently on levothyroxine 125 mcg once a day She had a recent fasting lipid panel done which showed fasting lipid levels within normal limits. 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 History of primary hyperparathyroidism Menopausal vaginal dryness History of hyperparathyroidism Glenohumeral arthritis Acromioclavicular joint arthritis HTN (hypertension) NSTEMI (non-ST elevated myocardial infarction) Diabetic retinopathy screening Essential hypertension Osteopenia of left femoral neck Type 2 diabetes mellitus without complication, with no history of insulin use Atrial septal aneurysm Vitamin D deficiency Multinodular thyroid Jaki's disease Surgical History History of total thyroidectomy History of parathyroidectomy Hx of colonoscopy Hx of colonoscopy History of cardiac catheterization (~05/2020) History of partial hysterectomy Hx of tubal ligation Family History Mother Diabetes Arthritis Breast cancer, Onset Age: 70 Father No problems noted. Daughter Cervical cancer Social History Household Members: None Housing: House Alcohol intake: current Alcohol intake frequency: holidays/special occasions only Alcohol type: wine Patient Tobacco Use Status: Former Tobacco user e-Cigarette/Vaping Use: Never Used service: No Current occupational status: retired Cognitive needs: No Hearing needs: No Vision needs: Yes Female Reproductive History Menstrual Age of Menarche: 12 Questionnaire PHQ-9 Over the last 2 weeks, how often have you been bothered by any of the following problems? 1. Little interest or pleasure in doing things: not at all 2. Feeling down, depressed, or hopeless: not at all 3. Trouble falling or staying asleep, or sleeping too much: not at all 4. Feeling tired or having little energy: not at all 5. Poor appetite or overeating: not at all 6. Feeling bad about yourself - or that you are a failure or have let yourself or your family down: not at all 7. Trouble concentrating on things, such as reading the newspaper or watching television: not at all 8. Moving or speaking so slowly that other people could have noticed. Or the opposite - being so fidgety or restless that you have been moving around a lot more than usual: not at all 9. Thoughts that you would be better off or of hurting yourself in some way: not at all Total score: 0 Depression Screening Interpretation: Negative Depression Screening Done: Yes 10050 - PHQ-9 Billing: Yes Source: Developed by Deepa Bernal.W. Luis Armando, Anthony Reddy and colleagues, with an educational dania from [employer]. Thrive Questionnaire Date Thrive assessed: 03/04/25 I am a: Patient What is your living situation today?: I have a steady place to live Within the past 12 months, did the food you bought not last and you didn't have the money to get more?: Never true Within the past 12 months, did you worry whether your food would run out before you got money to buy more?: Never true Do you have trouble paying for medicines?: No Do you have trouble getting transportation to medical appointments?: No Do you have trouble paying your heating and electricity bill?: No Do you have trouble taking care of your child, family member or friend?: No Do you have trouble with day-to-day activities such as bathing, preparing meals, shopping, managing finances, etc.?: No Are you currently unemployed and looking for a job?: No Are you interested in more education?: No Please select the resources that you would like help with: None Currently or been in a relationship where the following occur: No concerns reported THRIVE Score: 0 AUDIT C Alcohol Use Questionnaire (AUDIT-C) 1. How often do you have a drink containing alcohol?: Monthly or less 2. How many drinks containing alcohol do you have on a typical day when you are drinking?: 1 or 2 3. How often do you have six or more drinks on one occasion?: Never Total Score: 1 Score Reviewed/Action Taken: Yes BRENNAN-7 AMB Questionnaire BRENNAN-7 Date BRENNAN - 7 assessed: 03/04/25 Feeling nervous, anxious, or on edge: 0 = Not at all Not being able to stop or control worryin = Not at all Worrying too much about different things: 0 = Not at all Trouble relaxin = Not at all Being so restless that it is hard to sit still: 0 = Not at all Becoming easily annoyed or irritable: 0 = Not at all Feeling afraid as if something awful might happen: 0 = Not at all Total BRENNAN-7 score (0-4 normal; 5-9 mild; 10-14 moderate; 15-21 severe): 0 Source: Developed by Drs. Hiren Ragland, Deepa B.Anthony Magallanes and colleagues, with an educational dania from [employer]. BRENNAN-7 Assessment Billing BRENNAN-7 Assessment Tool: BRENNAN-7 Assessment 77916 Review of Systems Const Reports no additional complaints Eyes Details: [facility] Reports no additional complaints ENT Reports no additional complaints Card Reports no additional complaints Resp Reports no additional complaints GI Reports as per HPI and Reports no additional complaints Reports as per HPI Musc Reports no additional complaints Skin/Breast Reports as per HPI Neuro Reports no additional complaints Psych Reports no additional complaints Endo Reports no additional complaints Urban/Lymph Reports no additional complaints Aller/Immun Reports no additional complaints Physical exam (Primary Care) Vital Signs: Last Vital Signs Temp 98.2 F 03/04/25 14:13 Pulse 73 03/04/25 14:13 Resp 15 03/04/25 14:13 BP 110/78 03/04/25 14:13 Pulse Ox 97 03/04/25 14:13 Oxygen Delivery Method Room Air 03/04/25 14:13 BMI result Body Mass Index 37.2 Tobacco/Smoking Status: Tobacco use Status Tobacco use date assessed 03/04/25 03/04/25 14:17 Patient Tobacco Use Status Former Tobacco user 03/04/25 14:17 e-Cigarette/Vaping Use Never Used 03/04/25 14:17 PHQ-9: PHQ-9 Score PHQ-9: Total score 0 03/04/25 14:33 Depression Screening Interpretation: Negative Thrive Assessment: Date of Thrive Assessment Date Thrive assessed 03/04/25 03/04/25 14:17 Currently or been in a relationship where the following occur: No concerns reported Const Other: Alert oriented x3, no acute distress noted ambulatory normal gait [facility] Head: Yes normocephalic Ears: external ears normal General nose exam: Normal external nose present Face and sinus: Yes face symmetric Mouth: Normal oral and palatal mucosa present and moist mucous membranes Eyes General: appearance normal, both eyes and all related structures Neck Other: healed sx scar anterior neck Neck: Yes full ROM, Yes no lymphadenopathy and Yes supple Resp Auscultation: clear to auscultation bilaterally Cardio Other: S1-S2 present regular rate and rhythm GI Auscultation: normal bowel sounds Skin General skin exam: no rashes or lesions noted Neuro General: gait normal, tone normal, Normal light touch and pain sensation, no focal motor deficits and CN's II-XI intact bilaterally Extrem General: Yes no joint enlargement, Yes no clubbing, cyanosis or edema and Yes normal gait Psych Appearance: grossly normal and well kempt Mental Status: mental status grossly normal Speech and movement: Normal speech and movement present Affect: normal affect Results AMB Hemoglobin A1c AMB Hemoglobin A1c 6.3 % Last Edit by Nasrin Bender CMA on 03/04/25 14:55 Results Reviewed Results Reviewed: Name: Jacki Conklin Age/Sex: 64/F : 1960 Unit#: [id number] Attend Dr: Di Bae MD Re02/27/25 Status: DEP [facility] SPEC : [id number] SHAUNA: 02/27/25 STATUS: COMP REQ : [id number] RECD: 02/27/[address]: Di Bae MD COMP: 02/27/25 ENTERED: 02/27/[address]: ORDERED: AST, ALT, Lipid Panel Test Result Flag Reference AST (GOT) 22 5-31 U/L ALT (GPT) 17 0-31 U/L Triglyceride 62 <150 mg/dL Desirable Triglyceride: less than 150 mg/dL Borderline High Triglyceride 150-199 mg/dL High Triglyceride: 200-499 mg/dL Very High Triglyceride: greater than or equal to 5OO mg/dL Cholesterol 157 <200 mg/dL Desirable Cholesterol: less than 200 mg/dL Borderline High Cholesterol: 200-239 mg/dL High Cholesterol: greater than 239 mg/dL LDL Calculated 91 <100 mg/dL Desirable LDL: less than 100 mg/dL Near Optimal/Above Optimal LDL: 110-129 mg/dL Borderline High LDL: 130-159 mg/dL High LDL: 160-189 mg/dL Very High LDL: greater than or equal to 190 mg/dL HDL 54 >40 mg/dL Desirable HDL: greater than 40 mg/dL Note: This HDL assay may give artificially low results in patients with liver disease. Coding Additional Codes BRENNAN-7 Assessment Billing - BRENNAN-7 Assessment Tool: BRENNAN-7 Assessment 68251 ([id number]) PHQ-9 - 70888 - PHQ-9 Billing: Yes ([id number]) Assessment & Plan Assessment & Plan Orders: Orders AMB Hemoglobin A1c Today E11.9 - Type 2 diabetes mellitus without complications
--- OUTSIDE RECORDS SUMMARY | 2025-03-04 14:54 | XMS_ITS | Clinical Summary ---
Author Organization 175 [facility] Address [address] [place] [address] Phone Care Team Providers Care Annealer Name Role Phone Di Bae MD Primary Care Provider +1- [phone] Allergies No known active allergies Medications metoprolol [...] obesity with BMI of 4 0.0-44.9, adult ([facility], [facility] V28) 06/09/2024 Vitamin D deficiency 09/04/2017 Cholelithiasis 06/14/2017 Hyperlipidemia 03/02/2017 Essential hypertension 03/07/2016 Type 2 diabetes mellitus ([facility] V24, [facility] V 28) 03/02/2016 Overview (06/09/2024): Diabetes mellitus type 2 in obese ([facility]) Thoracic aortic aneurysm without rupture ([facility] V24) 11/09/2015 Hyperparathyroidism ([facility] V24) 07/24/2014 Hypercalcemia 03/02/2008 Esophageal reflux 10/30/2006 Immunizations Immunization Administration Dates Next Due H1N1 Inj Preservative [...] Health Maintenance Due Date Last Done Comments Colorectal Cancer Screening: Colonoscopy 1960 Diabetes: Annual Foot Exam 1969 Diabetes: Annual [...] 08/02 Cholesterol Screening (Lipid Panel) 05/21/2024 09/04/2017 Diabetes: Annual Urine Albumin-Creatinine Ratio (uACR) 05/21/2024 [...] Blood Venous blood specimen / Unknown [facility] Provider LAB BLOOD ORDERABLES Ashley l Result * Lipid panel (09/04/2017) LDL/HDL Ratio 2 0 - 4 Triglycerides 128 0 - 150 mg/dL Cholesterol 171 0 - 200 mg/dL HDL 71 >=40 mg/dL LDL Cholesterol 74 0 - 100 mg/dL Blood Venous blood specimen / Unknown [facility] Provider LAB BLOOD ORDERABLES Ashley l [...] normal bone density by WHO criteria. The [facility] Department of Internal Medicine recommends using [...] alternative screening schedule based on brittni Camp., [facility] June 22, 2011 for patients with osteopenia [...] normal bone density by WHO criteria. The [facility] Department of Internal Medicine recommendsusing National [...] alternative screening schedule based on brittni Camp., [facility]2011 for patients with osteopenia (based on hip BMD T-score) is as follows: * advanced osteopenia (T scores -2.00 to -2.49), BMD testing every year * moderate osteopenia (T scores -1.50 to -1.99), BMD testing every 5years mild osteopenia or normal BMD (T scores -1.50 and higher), BMD testingevery 15 years Result [facility] Chuck Montilla MD IMG DXA PROCEDURES Final Result * Urine Albumin Creatinine Ratio (10/27/2016) [facility] Urine Albumin Creatinine Ratio abstracted Result [facility] Historical Provider HEALTH MAINTENANCE Final Result * Cervical Cancer Screening: HPV (06/26/2016) [facility] Cervical Cancer Screening: HPV abstracted, negative Result [facility] Provider HEALTH MAINTENANCE Final Result * Hepatitis C Screening (01/07/2013) [facility] Hepatitis C Screening abstracted [facility] Provider HEALTH MAINTENANCE Final Result from Last 3 Months or Most Recently Relevant to Health Maintenance Insurance A[employer]NA MEDICARE ADVANTAGE MEDICAID - [place] Care Teams Annealer Relationship Specialty Start Date End Date Di Bae MD [address] [place] [address] PCP - General Internal Medicine 05/21/24
== END 2025-03-04 14:53 | disposition home or self-care (01) ==
LOC: HO.HMCC 13:40
PROVIDERS: PCP Internal Medicine; Visit Provider Internal Medicine
DX: E11.9 Type 2 diabetes mellitus without complications (principal)

== ENCOUNTER → 2025-03-04 13:39 | Outpatient (BNVA) | payer MEDICARE, SELFPAY | PROVIDERS: PCP Internal Medicine; Visit Provider Internal Medicine | DX: I10 Essential (primary) hypertension (principal); E11.9 Type 2 diabetes mellitus without complications | CPT/HCPCS: 83036; 96127; 99212 ==

== ENCOUNTER 2025-06-02 09:16 | Outpatient (REF) | payer MEDICARE, SELFPAY ==
--- NOTE | ~2025-06-02 | MM_ITS ---
EXAMINATION: MM SCREENING DIGITAL BREAST TOMOSYNTHESIS, BILATERAL CLINICAL INFORMATION: Screening. Asymptomatic. COMPARISON: Mammography: Comparison is made with available priors TECHNIQUE: Digital breast mammography with tomosynthesis is performed in both the craniocaudal and mediolateral oblique views along with computer-aided detection (CAD). FINDINGS: There are scattered areas of fibroglandular density. LEFT: Superficial skin lesion superior left breast posterior depth on MLO view stable dating back to 2022. There are no significant masses, abnormal calcifications, or other abnormalities. Right: Asymmetry superior breast anterior middle depth on MLO view. No suspicious calcifications or other abnormal findings. MM/MM tomosynthesis screening BI IMPRESSION: Additional imaging is recommended ASSESSMENT: BI-RADS Category 0: Incomplete - Need additional Imaging Evaluation RECOMMENDATION: 1. Additional views of the right breast. 2. Targeted ultrasound if warranted after review of the additional views. 3. Radiology department staff will contact the patient for additional imaging. Additional Imaging required Electronically signed by: Amber Cabezas DO 06/03/2025 12:55 PM REBA
--- OUTSIDE RECORDS SUMMARY | 2025-06-02 11:43 | XMS_ITS | Clinical Summary ---
Author Organization [address] [facility] Address [address] [place] [address] Phone Care Team Providers Care Kettle Hand Name Role Phone Di Bae MD Primary Care Provider [phone] Allergies No known active allergies Medications metoprolol [...] Hyperparathyroidism 07/24/2014 Hypercalcemia 03/02/2008 Esophageal reflux 10/30/2006 Immunizations [...] Years (1 of 2 - PCV) 1978 RSV Immunization Adult Patients (1 - Risk 50-74 years 1-dose series) 2009 Zoster Vaccines (1 of 2) 2009 Diabetes: Annual GFR (Glomerular Filtration Rate) 02/06/2019 02/06/2018 Breast Cancer Screening 08/11/2019 08/10/2017, 08/02 Cholesterol Screening (Lipid Panel) 05/21/2024 09/04/2017 Diabetes: Annual Urine Albumin-Creatinine Ratio (uACR) 05/21/2024 10/27/2016 Diabetes: Blood Sugar Control Test (HGBA1C) 05/21/2024 02/06/2018 Falls Risk Assessment 05/21/2024 Hypertension/CHF/CAD Annual BMP Blood Test 05/21/2024 02/06/2018 Medicare Annual Wellness Visit 05/21/2024 Social Influencers of Health Screening 05/21/2024 Depression Screening 06/04/2024 COVID-19 Vaccine ( - season) 2025 06/12/2022 Influenza Vaccine (#1) 2025 [...] 06/29/2017 9:15 AM EST Hypercalcemia Hyperparathyroidism, unspecified ([facility] V24) URINE ALBUMIN CREATININE RATIO Routine 10/27/2016 HEPATITIS C SCREENING Routine 01/07/2013 from Last 3 Months or Most Recently Relevant to Health Maintenance Results * Annual BMP Blood Test (02/06/2018) Annual BMP Blood Test abstracted Historical Provider HEALTH MAINTENANCE Final Result * (ABNORMAL) Hemoglobin A1c (02/06/2018) Hemoglobin A1C 6.5(A) 4.0 - 6.0 % Blood Venous blood specimen / Unknown us Historical Provider LAB BLOOD ORDERABLES Ashley l Result * Lipid panel (09/04/2017) LDL/HDL Ratio 2 0 - 4 Triglycerides 128 0 - 150 mg/dL Cholesterol 171 0 - 200 mg/dL HDL 71 >=40 mg/dL LDL Cholesterol 74 0 - 100 mg/dL Blood Venous blood specimen / Unknown Result [facility] Historical Provider LAB BLOOD ORDERABLES Ashley l Result [...] % Breast cancer risk category Low (<15%) Result [facility] Joie Lopez DO IMG XR PROCEDURES Final Result * DXA BONE DENSITY STUDY 1+ KAMILLE ORTIZ SKMARCELA (06/29/2017 9:15 AM EST) Anatomical Region Laterality [...] normal bone density by WHO criteria. The [facility] Department of Internal Medicine recommends [...] normal bone density by WHO criteria. The [facility] Department of Internal Medicine recommendsusing [...] alternative screening schedule based on brittni Camp., NEJMJanuary 2011 for patients with osteopenia (based on hip BMD T-score) is as follows: * advanced osteopenia (T scores -2.00 to -2.49), BMD testing every year * moderate osteopenia (T scores -1.50 to -1.99), BMD testing every 5years mild osteopenia or normal BMD (T scores -1.50 and higher), BMD testingevery 15 years Chuck Montilla MD [facility] [place]ED[place] Final Result * HM Urine Albumin Creatinine Ratio (10/27/2016) Urine Albumin Creatinine Ratio abstracted us Historical Provider HEALTH MAINTENANCE Final Result * Hepatitis C Screening (01/07/2013) Hepatitis C Screening abstracted us Historical Provider HEALTH MAINTENANCE Final Result from Last 3 Months or Most Recently Relevant to Health Maintenance Insurance [employer] MEDICARE ADVANTAGE [place]ICA[place] Care Teams Kettle Hand Relationship Specialty Start Date End Date Di Bae MD [address] [place] [address] PCP - General Internal Medicine 05/21/24
--- OUTSIDE RECORDS SUMMARY | 2025-06-02 11:43 | XMS_ITS | Patient Health Record ---
Author Organization [facility] Address [address] [place] [address] Support Name Relationship Address Phone CHATO SKELTON Guarantor Unknown [phone] Reason For Referral No Information Problems Problem Type SNOMED Code ICD Code Onset Dates Problem Status W/U Status Risk Notes Problem Obesity (523927091) Obesity, unspecified (278.00) Active confirmed Diag Problem Urinary tract infectious disease (disorder) (25459363) Urinary tract infection, site not specified (599.0) Active confirmed Diag Problem Menopausal symptom (26118689) Symptomatic menopausal or female climacteric states (627.2) Active confirmed Major Problem Gynecological examination normal (282315828486175) Routine gynecological examination (V72.31) Active confirmed Major Problem Screening for malignant neoplasm of colon (427186266) Special screening for malignant neoplasms, colon (V76.51) Active confirmed Major Plan Of Treatment No Information Insurance Providers Payer Name Payer Address Payer Phone Subscriber Number Group Number Insured Name Patient Relationship to Insured Coverage Start Date Coverage End Date [employer] [address] [place] [address] [phone] [id number] CHATO SKELTON Self - patient is the insured
== END 2025-06-02 09:17 ==
LOC: HO.MAMMO 09:16
PROVIDERS: Visit Provider Internal Medicine
DX: Z12.31 Encounter for screening mammogram for malignant neoplasm of breast (principal)
CPT/HCPCS: 77063; 77067

== ENCOUNTER → 2025-06-02 09:30 | Outpatient (BNV) | payer MEDICARE, SELFPAY | PROVIDERS: Visit Provider Internal Medicine | DX: Z12.31 Encounter for screening mammogram for malignant neoplasm of breast (principal) | CPT/HCPCS: 77063; 77067 ==